=== PATIENT | female | born 1945 | race Caucasian/White ===

== ENCOUNTER 2020-04-29 09:07 | Inpatient (IN) | payer OTHER ==
[2020-04-29] MEDS ORDERED: NA CHLORIDE 0.9% 1,000 ML ONE ×2 (10:30→12:47)
[2020-04-29 11:45] LABS: Absolute Lymphocytes (CBC) 0.8 K/uL (0.7-4.9); Basophils % 2.5 % (0-1.3); Hematocrit 42.4 % (36.0-45.0); Lymphocytes % 8.7 % (15.3-44.8); MPV 8.1 fL (7.6-11.3); RBC Red Blood Cell Count 4.36 M/uL (3.86-4.86)
[2020-04-29 11:57] LABS: ALT/SGPT 18 U/L (12-78); AST/SGOT 14 U/L (15-37); Alkaline Phosphatase 104 U/L (45-117); BUN Blood Urea Nitrogen 78 mg/dL (7-18); Bicarbonate 17 mmol/L (21-32); Bilirubin Direct < 0.1 mg/dL (0-0.2); Bilirubin Total 0.2 mg/dL (0.2-1.0); Glucose Level 89 mg/dL (74-106); Lipase 222 U/L (73-393); Potassium 5.4 mmol/L (3.5-5.1); Protein, Total 7.9 g/dL (6.4-8.2); Sodium Level 134 mmol/L (136-145)
[2020-04-29 12:32] LABS: Blood Morphology Comment NOT SEEN (NOT SEEN); Platelet Estimate ADEQ; Platelets, Giant F; White Blood Cell Scan OK (OK)
--- NOTE | 2020-04-29 12:54 | RAD REPORT ---
EXAM DESCRIPTION: CT - Abdomen Pelvis Wo Contrast - 04/29/2020 12:38 pm CLINICAL HISTORY: diarrhea;Abd pain COMPARISON: <Comparisons> TECHNIQUE: Axial [address] imaging of the abdomen and pelvis was performed without IV contrast. No IV contrast was given because of allergy, abnormal renal function, patient refusal or physician re quest. No oral contrast administered. All CT scans are performed using dose optimization technique as appropriate and may include automated exposure control or mA/KV adjustment according to patient size. FINDINGS: No suspicious findings in the lung bases. Liver shows no suspicious findings. Cholecystectomy clips are present with no biliary tree dilatation . Elevation of the right hemidiaphragm. No splenomegaly present. In the medial inferior aspect of the spleen there is a 17 millimeter low-attenuation (10 Hounsfield units) mass most likely an incidental cyst. This is not regarded as significant. No pancreatitis or acute pancreas finding. No hydronephrosis or suspicious renal mass. Kidneys show lobulated capsule contours. No left adrenal mass. A 2.7 centimeter low-attenuation (5 Hounsfield units) right adrenal mass is present almost cert ainly an incidental adenoma. Isodense renal masses and pyelonephritis cannot be excluded in the absen ce of IV contrast. The urinary bladder is without significant finding. Uterus is absent or atrophic. No adnexal mass. [place] artifact from the right hip prosthesis limits pelvic floor detail. No dilated bowel loops or bowel wall thickening. Patient has diverticulosis without diverticulitis. N o acute GI process evident. No free air, free fluid or inflammatory stranding. No mass or bulky lymph adenopathy. Disc and bone degenerative changes are present. Lower lumbar surgical changes are present. No acute f inding evident. Patient has an infrarenal abdominal aortic aneurysm along the left anterior margin. This creates long and short axis dimensions of 3.6 x 2.9 cm. No displaced calcifications. IMPRESSION: Non-contrast enhanced CT abdomen and pelvis imaging show no acute or emergent finding. Nonacute findings detailed in the body of the report. Full assessment is limited is the absence of IV contrast.
[2020-04-29 13:25] LABS: Urine Blood TRACE (NEG); Urine Glucose NEGATIVE (NEG); Urine Protein TRACE (NEG); Urine Specific Gravity 1.015 (1.005-1.030)
[2020-04-29 13:29] LABS: Urine Bacteria NONE SEEN /HPF (<20); Urine RBC <5 /HPF (NONE SEEN)
--- NOTE | 2020-04-29 13:34 | ER ---
Nurse's Notes [facility] Name: Delfina Vinson Age: 75 yrs Sex: Female : 1945 Arrival Date: 04/29/2020 Time: 09:09 Bed 4 Private MD: Delon Mcallister V Diagnosis: Acute kidney failure;Hyperkalemia;Hypotension, unspecified Presentation: 04/29 09:45 Chief complaint: Spouse and/or significant other states: has been very weak over past iw few days, has no energy, has been having diarrhea for past few weeks was seen at ER in [place] three weeks ago, has been having some low BP readings at home. 09:53 Acuity: BILL 2 iw 10:00 Coronavirus screen: Client denies travel out of the [place] in the last 14 days. At this jl7 time, the client does not indicate any symptoms associated with coronavirus-19. Ebola Screen: No symptoms or risks identified at this time. Initial Sepsis Screen: Does the patient meet any 2 criteria? Systolic BP < 90 mmHg. Does the patient have a suspected source of infection? No. Patient's initial sepsis screen is negative. Risk Assessment: Do you want to hurt yourself or someone else? Patient reports no desire to harm self or others. Onset of symptoms is unknown. Care prior to arrival: None. Transition of care: patient was not received from another setting of care. 10:00 Method Of Arrival: Wheelchair jl7 Historical: - Allergies: 10:16 No Known Allergies; iw - Home Meds: 10:16 Synthroid 100 mcg Oral tab 1 tab once daily [Active]; olmesartan oral 20 MG oral once iw daily [Active]; gabapentin 300 mg oral cap 3 times per day [Active]; Xanax 0.5 mg Oral tab daily [Active]; 10:18 tramadol 50 mg Oral tab every 4-6 hours [Active]; iw - PMHx: 11:18 Hypothyroidism; Hypertension; jl7 - Immunization history:: Adult Immunizations unknown. - Family history:: not pertinent. - Social history:: Smoking status: Patient denies any tobacco usage or history of. - Hospitalizations: : No recent hospitalization is reported. Screenin:18 Abuse screen: Denies threats or abuse. Denies injuries from another. Nutritional jl7 screening: No deficits noted. Tuberculosis screening: No symptoms or risk factors identified. Fall Risk IV access (20 points). Gait- Weak (10 pts.). Total Rgeene Fall Scale indicates Low Risk Score (25-44 pts). Fall prevention measures have been instituted. Side Rails Up X 2 Placed close to Nursing Station Frequent Obs/Assesments occuring Family Present and informed to notify staff if they need to leave bedside As available Patient and Family Educated on Fall Prevention Program and strategies. Assessment: 10:15 General: Appears in no apparent distress. uncomfortable, ill, Behavior is calm, jl7 cooperative, appropriate for age. Pain: Complains of pain in back Pain began years ago. Is continuous. Neuro: Level of Consciousness is awake, alert, obeys commands, Oriented to person, place, time, situation. Cardiovascular: Patient's skin is warm and dry. Respiratory: Airway is patent Respiratory effort is even, unlabored, Respiratory pattern is regular, symmetrical. GI: Abdomen is round non-distended. Derm: Skin is dry, Skin is pale, Skin temperature is cool. 11:00 Reassessment: Patient appears in no apparent distress at this time. No changes from jl7 previously documented assessment. Patient and/or family updated on plan of care and expected duration. Pain level reassessed. Patient is alert, oriented x 3, equal unlabored respirations, skin warm/dry/pink. 12:00 Reassessment: Patient appears in no apparent distress at this time. No changes from jl7 previously documented assessment. Patient and/or family updated on plan of care and expected duration. Pain level reassessed. Patient is alert, oriented x 3, equal unlabored respirations, skin warm/dry/pink. 13:00 Reassessment: Patient appears in no apparent distress at this time. No changes from jl7 previously documented assessment. Patient and/or family updated on plan of care and expected duration. Pain level reassessed. Patient is alert, oriented x 3, equal unlabored respirations, skin warm/dry/pink. 14:00 Reassessment: Patient appears in no apparent distress at this time. No changes from jl7 previously documented assessment. Patient and/or family updated on plan of care and expected duration. Pain level reassessed. Patient is alert, oriented x 3, equal unlabored respirations, skin warm/dry/pink. 15:00 Reassessment: 22 g to right wrist infiltrated, IV removed. jl7 Vital Signs: 10:04 BP 87 / 47; Pulse 55; Resp 14; Temp 97.6; Pulse Ox 96% on R/A; iw 10:54 BP 79 / 59; Pulse 53; Resp 16; Pulse Ox 95% on R/A; tw2 11:16 BP 97 / 45; Pulse 54; Resp 17; Pulse Ox 95% ; jl7 11:39 BP 92 / 50; Pulse 53; Resp 17; Pulse Ox 95% on R/A; tw2 12:54 BP 102 / 46; Pulse 45; Resp 17; Pulse Ox 95% ; jl7 13:40 Resp 14 S; Pulse Ox 88% on R/A; jl7 13:46 BP 104 / 56; Pulse 53; Resp 15; Pulse Ox 100% on 1 lpm NC; jl7 14:40 BP 113 / 51; Pulse 51; Resp 17; Pulse Ox 100% ; jl7 15:00 BP 109 / 53; Pulse 54; Resp 17; Pulse Ox 100% ; jl7 10:54 provider notified tw2 ED Course: 09:09 Patient arrived in ED. as 09:10 Delon Mcallister MD is Private Physician. as 09:53 Triage completed. iw 09:53 Placed in gown. Adult w/ patient. supervisor pole yard on. Pulse ox on. NIBP on. Warm tw2 blanket given. 10:00 James Lares MD is Attending Physician. rn 10:09 Brock Jon RN is Primary Nurse. jl7 10:24 Inserted saline lock: 20 gauge in right wrist, using aseptic technique. Blood collected.jl7 10:26 Arm band placed on. tw2 10:30 First set of blood cultures drawn. Missed attempt(s): 22 gauge in left antecubital jl7 area. Bleeding controlled, band aid applied, catheter tip intact. 10:32 Missed attempt(s): 22 gauge in left wrist. Bleeding controlled, band aid applied, jl7 catheter tip intact. 11:19 Radiology exam delayed due to lab results not completed at this time. (BUN/Creatinine) bq IV insertion attempt and/or patient not having appropriate IV at this time. 11:28 Initial lab(s) drawn, by me, sent to lab. Second set of blood cultures drawn by me. dh3 Missed attempt(s): 20 gauge in left antecubital area. Bleeding controlled, band aid applied, catheter tip intact. 12:38 Abdomen In Process Unspecified. EDMS 12:54 Straight cath inserted, using sterile technique, 16 Fr. Specimen obtained. Returned jl7 clear yellow urine. Patient tolerated well. 12:55 Urine collected: straight cath specimen, clear. jl7 13:34 Delon Mcallister MD is Hospitalizing Provider. rn 15:30 Missed attempt(s): 22 gauge in right wrist. Bleeding controlled, band aid applied, jl7 catheter tip intact. 15:35 Missed attempt(s): 22 gauge in left forearm. Bleeding controlled, band aid applied, jl7 catheter tip intact. 15:56 Inserted saline lock: 22 gauge in left antecubital area, using aseptic technique. iw 15:58 No provider procedures requiring assistance completed. Patient admitted, IV remains in jl7 place. intact, No redness/swelling at site. Administered Medications: 10:30 Drug: NS 0.9% 1000 ml Route: IV; Rate: 1000 ml; Site: right wrist; jl7 11:30 Follow up: Response: No adverse reaction; IV Status: Completed infusion; IV Intake: jl7 1000ml 12:55 Drug: NS 0.9% 1000 ml Route: IV; Rate: 100 ml/hr; Site: right wrist; jl7 15:56 Follow up: IV Status: Infusion continued upon admission jl7 Intake: 11:30 IV: 1000ml; Total: 1000ml. jl7 Outcome: 13:34 Decision to Hospitalize by Provider. rn 16:00 Admitted to Tele accompanied by tech, family with patient, via stretcher, room 204, jl7 with chart, Report called to MAURI Cuenca 16:00 Condition: stable 16:00 Discharge instructions given to patient, family, Instructed on the need for admit, Demonstrated understanding of instructions. 16:08 Patient left the ED. jl7 Signatures: Dispatcher [employer] EDMS Lucía Lunsford Amelia as Williams, Irene, RN RN iw Nieto, Roman, MD MD rn Wise, Tara, RN RN 2 Brock Jon RN RN jl7 Sheree Amaya 3 Corrections: (The following items were deleted from the chart) 15:58 15:58 Response: No adverse reaction; IV Status: Completed infusion; IV Intake: 1000ml jl7 jl7
--- NOTE | 2020-04-29 13:35 | EDPHYS ---
Physician Documentation [facility] Name: Delfina Vinson Age: 75 yrs Sex: Female : 1945 Arrival Date: 04/29/2020 Time: 09:09 Bed 4 Private MD: Delon Mcallister V ED Physician Jaems Lares HPI: 04/29 11:07 This 75 yrs old Female presents to ER via Unassigned with complaints of rn diarrhea, Blood Pressure Problem, Weakness. 11:07 Reports generalized weakness, low blood pressure, has been happening for about 1 week, rn seen at outside ER this past week, reports had ct abdomen and bloodwork, sent home, continued to have non-bloody diarrhea. + nausea. NO chest pain/sob/productive cough.. Onset: The symptoms/episode began/occurred 1 week(s) ago. Severity of symptoms: At their worst the symptoms were moderate in the emergency department the symptoms are unchanged. The patient has not experienced similar symptoms in the past. The patient has been recently seen by a physician:. Historical: - Allergies: 10:16 No Known Allergies; iw - Home Meds: 10:16 Synthroid 100 mcg Oral tab 1 tab once daily [Active]; olmesartan oral 20 MG oral once iw daily [Active]; gabapentin 300 mg oral cap 3 times per day [Active]; Xanax 0.5 mg Oral tab daily [Active]; 10:18 tramadol 50 mg Oral tab every 4-6 hours [Active]; iw - PMHx: 11:18 Hypothyroidism; Hypertension; jl7 - Immunization history:: Adult Immunizations unknown. - Family history:: not pertinent. - Social history:: Smoking status: Patient denies any tobacco usage or history of. - Hospitalizations: : No recent hospitalization is reported. ROS: 11:07 Constitutional: Negative for fever, chills, and weight loss, Eyes: Negative for injury, rn pain, redness, and discharge, Neck: Negative for injury, pain, and swelling, Cardiovascular: Negative for chest pain, palpitations, and edema, Respiratory: Negative for shortness of breath, cough, wheezing, and pleuritic chest pain, Abdomen/GI: + nausea and diarrhea, non-bloody Back: Negative for injury and pain, MS/Extremity: Negative for injury and deformity, Skin: Negative for injury, rash, and discoloration, Neuro: Negative for headache, numbness, tingling, and seizure Exam: 11:07 Constitutional: This is a well developed, well nourished patient who is awake, alert, rn and in no acute distress. Head/Face: Normocephalic, atraumatic. Eyes: Pupils equal round and reactive to light, extra-ocular motions intact. Lids and lashes normal. Conjunctiva and sclera are non-icteric and not injected. Cornea within normal limits. Periorbital areas with no swelling, redness, or edema. ENT: dry MM Cardiovascular: Bradycardic, regular, no pulse deficits. Respiratory: No increased work of breathing, no retractions or nasal flaring. Abdomen/GI: soft, non-tender, non-distended Skin: Warm, dry MS/ Extremity: Pulses equal, no cyanosis. Neurovascular intact. Full, normal range of motion. Equal circumference. Neuro: Awake and alert, GCS 15, oriented to person, place, time, and situation. Cranial nerves II-XII grossly intact. Motor strength 4/5 in all extremities. Sensory grossly intact. Cerebellar exam normal. Normal gait. Vital Signs: 10:04 BP 87 / 47; Pulse 55; Resp 14; Temp 97.6; Pulse Ox 96% on R/A; iw 10:54 BP 79 / 59; Pulse 53; Resp 16; Pulse Ox 95% on R/A; tw2 11:16 BP 97 / 45; Pulse 54; Resp 17; Pulse Ox 95% ; jl7 11:39 BP 92 / 50; Pulse 53; Resp 17; Pulse Ox 95% on R/A; tw2 12:54 BP 102 / 46; Pulse 45; Resp 17; Pulse Ox 95% ; jl7 13:40 Resp 14 S; Pulse Ox 88% on R/A; jl7 13:46 BP 104 / 56; Pulse 53; Resp 15; Pulse Ox 100% on 1 lpm NC; jl7 14:40 BP 113 / 51; Pulse 51; Resp 17; Pulse Ox 100% ; jl7 15:00 BP 109 / 53; Pulse 54; Resp 17; Pulse Ox 100% ; jl7 10:54 provider notified tw2 MDM: 10:00 Patient medically screened. rn 13:31 Differential Diagnosis sepsis, dehydration, acute kidney failure, colitis, enteritis. rn Data reviewed: vital signs, nurses notes, lab test result(s), radiologic studies, CT scan, and as a result, I will admit patient. Counseling: I had a detailed discussion with the patient and/or guardian regarding: the historical points, exam findings, and any diagnostic results supporting the discharge/admit diagnosis, lab results, radiology results, the need for further work-up and treatment in the hospital. Response to treatment: the patient's symptoms have mildly improved after treatment, and as a result, I will admit patient. Special discussion:. ED course: Pt with acute kidney failure, hypotension that is responding to fluids, as a result of enteritis which has now improved on CT compared to outside hospital findings. Will admit to Dr. Mcallister. . 04/29 10:06 Order name: Basic Metabolic Panel; Complete Time: 12:13 04/29 10:06 Order name: CBC with Diff; Complete Time: 13:08 04/29 10:06 Order name: Hepatic Function; Complete Time: 12:13 04/29 10:06 Order name: Lipase; Complete Time: 12:13 04/29 10:06 Order name: Procalcitonin; Complete Time: 13:08 04/29 10:06 Order name: Lactate; Complete Time: 12:01 04/29 10:06 Order name: Blood Culture Adult (2) 04/29 10:06 Order name: Urine Culture 04/29 10:06 Order name: Urine Microscopic Only; Complete Time: 13:31 04/29 12:15 Order name: CREATININE WHOLE BLOOD; Complete Time: 13:08 EDAL 04/29 12:32 Order name: CBC Smear Scan; Complete Time: 13:08 EDMS 04/29 12:55 Order name: Urine Dipstick--Ancillary (enter results); Complete Time: 13:31 eb 04/29 13:38 Order name: Stool Culture 04/29 10:06 Order name: IV Saline Lock; Complete Time: 10:54 rn 04/29 10:06 Order name: Labs collected and sent; Complete Time: 11:36 04/29 10:06 Order name: Urine Dipstick-Ancillary (obtain specimen); Complete Time: 15:56 04/29 12:06 Order name: Abdomen ; Complete Time: 13:08 EDMS Administered Medications: 10:30 Drug: NS 0.9% 1000 ml Route: IV; Rate: 1000 ml; Site: right wrist; jl7 11:30 Follow up: Response: No adverse reaction; IV Status: Completed infusion; IV Intake: jl7 1000ml 12:55 Drug: NS 0.9% 1000 ml Route: IV; Rate: 100 ml/hr; Site: right wrist; jl7 15:56 Follow up: IV Status: Infusion continued upon admission jl7 Disposition: 04/29/20 13:34 Hospitalization ordered by Delon Mcallister for Inpatient Admission. Preliminary diagnosis are Acute kidney failure, Hyperkalemia, Hypotension, unspecified. - Bed requested for Telemetry/MedSurg (Inpatient). - Status is Inpatient Admission. jl7 - Condition is Stable. - Problem is new. - Symptoms have improved. Critical care time excluding procedures: 13:34 Critical care time: Bedside Care: 25 minutes, Consultation: 5 minutes, Family rn Intervention: 5 minutes. Total time: 35 minutes Signatures: Dispatcher [employer] EDAL Magdalene Bansal RN RN James Lares MD MD rn Leal, Jahala, RN RN 7 Marita Ca Corrections: (The following items were deleted from the chart) 12:06 10:07 Abdomen Pelvis W Con+CT.RAD.BRZ ordered. [facility] 14:59 13:34 Hospitalization Ordered by Delon Mcallister MD for Inpatient Admission. Preliminary eb diagnosis is Acute kidney failure; Hyperkalemia; Hypotension, unspecified. Bed requested for Telemetry/MedSurg (Inpatient). Status is Inpatient Admission. Condition is Stable. Problem is new. Symptoms have improved. rn 16:08 14:59 04/29/2020 13:34 Hospitalization Ordered by Delon Mcallister MD for Inpatient jl7 Admission. Preliminary diagnosis is Acute kidney failure; Hyperkalemia; Hypotension, unspecified. Bed requested for Telemetry/MedSurg (Inpatient). Status is Inpatient Admission. Condition is Stable. Problem is new. Symptoms have improved. eb
[2020-04-29] MEDS ORDERED: ONDANSETRON 4 MG/2 ML VIAL IV PRN (17:07)
[2020-04-29] MEDS ORDERED: TRAMADOL HCL 50 MG TAB PO PRN (18:05)
--- NOTE | 2020-04-29 18:17 | P.HP ---
Certification for Inpatient Patient admitted to: Inpatient With expected LOS: >2 Midnights Practitioner: I am a practitioner with admitting privileges, knowledge of patient current condition, hospital course, and medical plan of care. Services: Services provided to patient in accordance with Admission requirements found in Title 42 Section 412.3 of the Code of Federal Regulations Patient History Date of Service: 04/29/20 Reason for admission: WEAK History of Present Illness: MS DANGELO IS A NEW PATIENT FOR ME. SHE CAME TO OFFICE A WEEK AGO. SHE HAS HAD CHRONIC DIARRHEA FOR A MONTH, ABOUT 3 EPISODES EVERY MORNING OF WATERY DIARRHEA. SHE USUALLY GOES TO DR. FREY IN [place] FOR HER GI CARE BUT NOW GETTING OLDER SHE CAN'T DRIVE THERE. SHE LIVES IN [place] AND I ASKED HER TO GET APT WITH DR. NAVARRO FOR EVALUATION OF CHRONIC DIARRHEA. SHE COULD NOT GET APT UNTIL JULY. HER SON TOOK HER TO [facility] AND WAS SENT HOME AT THAT TIME THERE WAS NO DEHYDRATION. MEANWHILE SHE GOT WEAKER FOR LAST 3 DAYS AND CAME TO ER. SHE HAD LOW BP AND HIGH BUN, CREATININE. SHE WAS GIVEN BOLUS OF IV FLUIDS AND BP CAME UP TO NORMAL RANGE. SHE STILL IS WEAK. Allergies No Known Allergies Allergy (Verified 04/29/20 16:50) Home medications list reviewed: Yes Home Medications: Alprazolam [Xanax] 0.5 mg PO BEDTIME 04/29/20 Gabapentin 600 mg PO BID 04/29/20 Levothyroxine Sodium [Synthroid] 100 mcg PO DAILY 04/29/20 Olmsartan [place]il 20 mg PO DAILY 04/29/20 Tramadol HCl [Ultram] 50 mg PO BID PRN 04/29/20 - Past Medical/Surgical History Has patient received pneumonia vaccine in the past: No Diabetic: No -: HTN -: colon cancer. no chemo or rad 2003 -: hypothyroid -: shingles -: back surg x2 -: TONSILLECTOMY -: hysterectomy -: hip rt -: rt knee -: CHOLECYSTECTOMY -: APPENDECTOMY -: colon resection - Family History Father -: Heart disease, Hypertension Mother -: Diabetes - Social History Smoking Status: Never smoker Alcohol use: No CD- Drugs: No Caffeine use: Yes Place of Residence: Home Review of Systems 10-point ROS is otherwise unremarkable General: Weakness, Malaise, As per HPI Gastrointestinal: As per HPI Physical Examination - Physical Exam General: Oriented x3 (WEAK AND DEHYDRATED.), Mild distress, Moderate distress, Obese HEENT: Atraumatic, PERRLA, Mucous membr. moist/pink, EOMI, Sclerae nonicteric Neck: Supple, 2+ carotid pulse no bruit, No LAD, Without JVD or thyroid abnormality Respiratory: Clear to auscultation bilaterally, Normal air movement Cardiovascular: Regular rate/rhythm, Normal S1 S2 Gastrointestinal: Normal bowel sounds, No tenderness Musculoskeletal: No tenderness Integumentary: No rashes Neurological: Normal gait, Normal speech, Normal strength at 5/5 x4 extr, Normal tone, Normal affect Lymphatics: No axilla or inguinal lymphadenopathy - Studies Laboratory Data (last 24 hrs) 04/29/20 11:28: WBC 8.8, Hgb 13.9, Hct 42.4, Plt Count 351 04/29/20 11:28: Sodium 134 L, Potassium 5.4 H, BUN 78 H, Creatinine 3.62 H, Glucose 89, Total Bilirubin 0.2, AST 14 L, ALT 18, Alkaline Phosphatase 104, Lipase 222 Assessment and Plan - Problems (Diagnosis) (1) Prerenal acute renal failure Current Visit: Yes Status: Acute Plan: IV FLUIDS. SHE SHOULD IMPROVE URINE IS CLEAR, NO SIGNS OF BLEEDING OR INFLAMMATION. DOES NOT SEEM TO HAVE ATN OR AGN. (2) Chronic diarrhea Current Visit: Yes Status: Chronic Plan: FOR A MONTH. WE NEED COLONOSCOPY. GI DOCTORS ARE NOT AVAILABLE DAILY AT THIS HOSPITAL. I WILL STABILIZE AND DO CRC ON OP BASIS. - Advance Directives Does patient have a Living Will: Yes Does patient have a Durable POA for Healthcare: Yes
[2020-04-29 19:46] VITALS: BMI 38.9
[2020-04-29] MEDS ORDERED: ALPRAZOLAM 0.5 MG TABLET PO SCH (21:00)
[2020-04-29] MEDS ORDERED: GABAPENTIN 100 MG CAP PO SCH (21:00)
[2020-04-29] MEDS ORDERED: GABAPENTIN 300 MG CAP PO SCH (21:00)
[2020-04-29] MEDS: GABAPENTIN 300 MG CAP PO SCH (21:48)
[2020-04-30] MEDS: NA CHLORIDE 0.9% 1,000 ML IV SCH ×2 (00:36→03:07)
[2020-04-30] MEDS ORDERED: HYDROCORTISONE 2.5% RECT CR PR PRN (03:20)
[2020-04-30] MEDS ORDERED: HYDROCORTISONE ACETATE 25MG SUPP PR ONE (03:28)
[2020-04-30 05:53] LABS: Potassium 5.2 mmol/L (3.5-5.1)
[2020-04-30 06:04] LABS: Absolute Lymphocytes (CBC) 1.6 K/uL (0.7-4.9); Basophils % 0.6 % (0-1.3); Hematocrit 38.4 % (36.0-45.0); Lymphocytes % 17.5 % (15.3-44.8); MPV 8.6 fL (7.6-11.3); RBC Red Blood Cell Count 3.97 M/uL (3.86-4.86)
[2020-04-30] MEDS ORDERED: LEVOTHYROXINE SOD 0.1 MG TAB PO SCH (06:30)
[2020-04-30] MEDS: GABAPENTIN 300 MG CAP PO SCH (08:05)
[2020-04-30 08:15] VITALS: O2SAT 94
[2020-04-30 08:25] LABS: Blood Morphology Comment NOT SEEN (NOT SEEN); Platelet Estimate ADEQ; White Blood Cell Scan OK (OK)
[2020-04-30] MEDS ORDERED: ENOXAPARIN 30 MG/0.3 ML SQ SCH (09:00)
[2020-04-30 13:15] VITALS: BP 132/60; TEMP 98.3
[2020-05-04 21:55] LABS: Immunoglobulin A 271 mg/dL (70-320); Tissue Transglutaminase IgA Ab 1 U/mL (<4)
== END 2020-04-30 14:30 | disposition home or self-care (01) | DRG 684 ==
LOC: ER 09:07 → ERHOLD 13:58 → 2ND 15:57
PROVIDERS: ADMIT Internal Medicine; ATTEND Internal Medicine
DX: N17.9 Acute kidney failure, unspecified (principal); K52.9 Noninfective gastroenteritis and colitis, unspecified; E03.9 Hypothyroidism, unspecified; I10 Essential (primary) hypertension; E66.9 Obesity, unspecified; Z68.39 Body mass index [BMI] 39.0-39.9, adult; Z79.890 Hormone replacement therapy; Z79.01 Long term (current) use of anticoagulants; Z79.899 Other long term (current) drug therapy; Z85.038 Personal history of other malignant neoplasm of large intestine; Z90.49 Acquired absence of other specified parts of digestive tract; Z90.710 Acquired absence of both cervix and uterus; Z20.828 Contact with and (suspected) exposure to other viral communicable diseases
CPT/HCPCS: 36415; 51702; 74176; 80048; 80076; 81003; 81015; 82565; 82784; 83516; 83605; 83690; 83735; 84145; 85025; 87040; 87045; 87046; 87086; 87088; 96360; 96361; 99285; J1650; J7030; U0003

== ENCOUNTER 2020-05-01 10:08 | Inpatient (IN) | payer OTHER ==
--- OUTSIDE RECORDS SUMMARY | 2020-05-01 10:20 | XMS REPORT | Continuity of Care Document ---
:1945 Author Organization [facility] t Address [address] [place] [address] Care Team Providers Name Role Phone Layla Nickerson MD, A. Primary Care Physician Lilly Price DO Attending Clinician Payers Payer Name Policy Type Policy Effective Date Expiration Date Sour ce Number MEDICAREMEDICARE PART [id number] 2008 Luca Can AND 00:00:00 Rastafarian [id number] [place] [facility] [place] This patient has no known problems. Allergies, Adverse Reactions, Alerts Allergy Allergy Status Severity Reaction(s) Onset Inactive Treating Comm ents Source Name Type Date Date Clinician No Known DA Active U 2018-06 [facility] 06-27 [place] Allergie 00:00: Orthope s 00 dic Hosp[facility] Codeine Propensi Active [place] ty to 08-25 Method[facility] adverse 00:00: st reaction 00 s to drug Hydrocod [facility] adverse 00:00: st reaction 00 s to drug Sulfa DA Active [facility] (Sulfona 08-24 [place] mide 00:00: Orthope Antibiot 00 dic ics) Hospita l celecoxi DA Active [facility] b 08-24 00:00: Orthope 00 dic Hospita l apple FA Active [facility] 08-24 00:00: Orthope 00 dic Hospita l ALL RAW DA Active [facility] FRUIT 08-24 [place] 00:00: Orthope 00 dic Hospita l Family History Family Member Diagnosis Comments Start Date Stop Date Source Natural brother Diabetes [facility] ethodist Natural mother Diabetes [facility] thodi Social History Social Habit Start Date Stop Date Quantity Comments Source Sex Assigned At [facility] ethodist Exposure to Not sure [place] Metho dist SARS-CoV-2 (event) Tobacco use and 2020-04-23 2020-04-23 Never used [facility] ethodist exposure 00:00:00 00:00:00 Alcohol intake 2020-04-23 2020-04-23 Current [facility] thodist 00:00:00 00:00:00 non-drinker of alcohol (finding) Smoking Status Start Date Stop Date Source Never smoker [place] Methodis t Medications Ordered Filled Start Stop Current Ordering Indication Dosage Frequency Signature Comments Components Source Medication Medication Date Date Medication? Clinician (SIG) Name Name ondansetron 2019-06- Yes 4mg Q8H Take 1 Smita ston (Zofran) 4 06-23 tablet (4 Met hodi MG tablet 00:00: 23:59 mg total) st 00 :00 by mouth every 8 (eight) hours as needed for nausea or vomiting for up to 30 days. losartan Yes 50mg QD Take 50 mg Smita ston (COZAAR) 50 3-27 by mouth Meth odessa MG tablet 10:15: daily. st 49 cholecalcif Yes 2000U QD Take 2,000 Desir oziel, 3-27 Units by Methodi vitamin D3, 10:15: mouth st (VITAMIN 49 daily. D3) 2,000 unit capsule capsule levothyroxi Yes 100ug QD Take 100 [place] ne 3-27 mcg by Methodi (SYNTHROID, 10:14: mouth st LEVOXYL) 47 daily. 100 mcg tablet ALPRAZolam Yes .5mg QD Take 0.5 Smita ston (XANAX) 0.5 3-27 mg by Methodi MG tablet 10:14: mouth st 47 nightly as needed for anxiety. CETIRIZINE Yes QD Take by [place] H[facility] (ZYRTEC 3-27 mouth Methodi ORAL) 10:14: daily. st 47 Vital Signs Vital Name Observation Time Observation Value Comments Source Systolic blood 2020-04-23 16:06:00 120 mm[Hg] Ja Sheppard pressure Diastolic blood 2020-04-23 16:06:00 59 mm[Hg] Zuleima Sheppard pressure Heart rate 2020-04-23 16:06:00 65 /min Thang Sheppard Respiratory rate 2020-04-23 16:06:00 18 /min Nadiya Sheppard Oxygen saturation in 2020-04-23 16:06:00 97 /min Thang Sheppard Arterial blood by Pulse oximetry Body temperature 2020-04-23 14:18:00 36.28 Araseli Nadiya Sheppard Body height 2020-04-23 14:02:00 161.3 cm Thang Sheppard Body weight 2020-04-23 14:02:00 99.791 kg Thang Sheppard BMI 2020-04-23 14:02:00 38.36 kg/m2 Thang Sheppard Procedures Procedure Date / Time Performed Performing Clinician [facility] e CT ABDOMEN PELVIS WO 2020-04-23 15:42:02 Azar Price CONTRAST URINALYSIS 2020-04-23 15:02:00 Azar Priec HC COMPLETE BLD COUNT 2020-04-23 14:52:00 Azar Price W/AUTO DIFF LACTIC ACID, I-STAT 2020-04-23 14:52:00 Azar Price COMPREHENSIVE METABOLIC 2020-04-23 14:52:00 Azar Price PANEL AMYLASE LEVEL 2020-04-23 14:52:00 Azar Price Meth odjassi ESTIMATED GFR 2020-04-23 14:52:00 Azar Price Plan of Care Planned Activity Planned Date Details Comments Source Future Scheduled 2019-12-31 INFLUENZA VACCINE Ja Sheppard Test 00:00:00 [code = INFLUENZA VACCINE] Future Scheduled 2008-02-15 65+ PNEUMOCOCCAL Thang Sheppard Test 00:00:00 VACCINE (1 of 1 - PPSV23) [code = 65+ PNEUMOCOCCAL VACCINE (1 of 1 - PPSV23)] Future Scheduled 1993 SHINGLES VACCINES (#1) Caro dunham Rastafarian Test 00:00:00 [code = SHINGLES VACCINES (#1)] Encounters Start End Encounter Admission Attending Care Care Encounter Source Date/Time Date/Time Type Type Clinicians Facility Department ID 2020-04-23 2020-04-23 Emergency [facility] [id number] 24 [place] 00:00:00 00:00:00 AZAR Zapata Method i st Results Test Description Test Time Test Comments Results Result Sour e Comments CT Abdomen 2020-04-02 [facility] Pelvis Wo [address] Contrast 15:47:59 - 04/23/2020 3:51 PM CSTEXAMINATION: CT ABDOMEN PELVIS WO CONTRASTCLINICAL HISTORY: Abd pain unspecifiedTECHNIQUE: Multiple axial images of the abdomen and pelvis were obtained without intravenous administration of iodinated contrast. Sagittal and coronal computerized reformatted images were also obtained. The lack of intravenous contrast reduces the sensitivity of detecting solid organ disease. Radiation dose reduction technique was utilized.COMPARISON: None.IMPRESSION:Abdom en:1. Scans through the lower chest demonstrate coronary artery calcifications.2.Live r, pancreas, left adrenal, and kidneys do not demonstrate masses without contrast. There is a 1.7 cm hypodensity in the upper pole the left kidney, probably related to a cyst.3.There is a 1.7 cm hypodensity in the upper pole the spleen, also probably related to a cyst. There are multiple calcified splenic granulomata.4.There is a 3.3 cm hypodense mass in the right adrenal gland, most likely related to an adenoma. This can be confirmed by MRI.5.Status post cholecystectomy.6.Aor ta is atherosclerotic. Maximum transverse dimension is approximately 3.4 cm.7.There is no retroperitoneal adenopathy or ascites.8.There is no intestinal obstruction.Pelvis:1. Status post hysterectomy.2.Sigmoi d diverticulosis without evidence of diverticulitis.3.No pelvic mass, adenopathy, or fluid collection.4.There is generalized osteopenia. There are degenerative changes in the lower thoracic and lumbar spine. Status post lumbar laminectomy and fusion.5.Status post right hip replacement.[facility]-[id number] Comprehensive metabolic panel 2020-04-23 15:16:45 Test Item Value Reference Range Interpretation Comme nts Sodium (test code = 2951-2) 134 128- 145 mEq/L Potassium (test code = 2823-3) 4.9 3.6- 5.1 mEq/L CO2 (test code = 2027-9) 21 18- 33 mEq/L Chloride (test code = 2075-0) 106 98- 108 mEq/L Glucose (test code = 2345-7) 83 mg/dL 73-118 Calcium (test code = 53806-1) 9.1 mg/dL 8-10.3 BUN (test code = 3094-0) 17 mg/dL 7-22 Creatinine (test code = 2160-0) 0.8 mg/dL 0.5-0.9 Alkaline phosphatase (test code = 6768-6) 74 U/L 42-141 ALT (test code = 1742-6) 22 U/L 10-47 AST (test code = 1920-8) 28 U/L 11-38 Total bilirubin (test code = 1974-2) 0.6 mg/dL 0.2-1.6 Albumin (test code = 1751-7) 3.7 g/dL 3.3-5.5 Protein (test code = 2885-2) 7.4 g/dL 6.4-8.1 Anion gap (test code = 65243-5) 7@ANIO 7- 15 mEq/L A/G ratio (test code = 1759-0) 1.0 0.7-3.8 Thang MethodistAmylase [id number] 15:16:45 Test Item Value Reference Range Interpretation Comments Amylase (test code = 1798-8) 29 U/L 14-97 Thang MethodistCBC with platelet and [id number] 15:16:45 Test Item Value Reference Range Interpretation Comments WBC (test code = 53753-4) 8.31 4.50- 11.00 k/uL RBC (test code = 96513-4) 4.50 m/uL 4.2-5.5 HGB (test code = 718-7) 14.5 g/dL 12-16 HCT (test code = 4544-3) 43.3 % 37-47 MCV (test code = 787-2) 96.2 fL 82-100 MCH (test code = 785-6) 32.2 pg 27-34 MCHC (test code = 786-4) 33.5 g/dL 31-37 RDW - SD (test code = 07184-2) 51.4 fL 37-55 MPV (test code = 16743-8) 9.5 fL 8.8-13.2 Platelet count (test code = 303 150- 400 k/uL 37930-4) Neutrophils (test code = 37092-2) 69.2 % 39-69 H Lymphocytes (test code = 75853-3) 19.9 % 25-45 L Monocytes (test code = 77878-0) 10.2 % 0-10 H Eosinophils (test code = 75023-3) 0.6 % 0-5 Basophils (test code = 27010-2) 0.1 % 0-1 Lab Interpretation (test code = Abnormal 17973-7) Desir MethodistEstimated [id number] 15:16:45 Test Item Value Reference Range Interpretation Comments Estimated GFR (test 71 mL/min/1.73 m2 Caterg ory Units code = 5488) InterpretationG 1 >=90 Normal or highG2 60-89 Mildly uwjiujrpwE0z 45-59 Mildly to mode rately acwywxqtrM4m 30-44 Moderately to severely decreasedG4 15-29 Severely decre asedG5 <15 Kidn ey failureThe eGFR was calculated velma morales the Chronic Kidney Disease Epidemiology Co llaboration (CKD-EPI) equat ion. Interpretation is based on recommendations of the National Kidney Foundation-Kidn ey Disease Outcomes Qualit y Initiative (NKF-KDOQI) pub lished in 2014. Desir GtekipwghThsydhbnux0127-64-82 15:09:35 Test Item Value Reference Range Interpretation Comments Glucose, UA (test code Negative Negative = 50296-8) Bilirubin, UA (test Negative Negative code = 5770-3) Ketones, UA (test code Negative Negative = 2514-8) Specific gravity, UA 1.020 1.001-1.035 (test code = 5811-5) Blood, UA (test code = Moderate Negative A Opera tor Name: 5794-3) traineeDevice I D: 654718 pH, UA (test code = 5.0 5.0-8.5 5803-2) Protein, UA (test code Negative Negative = 88168-6) Urobilinogen, UA (test <2.0 <2.0 code = 46831-0) Nitrite, UA (test code Negative Negative = 5802-4) Leukocyte esterase, UA Negative Negative (test code = 5799-2) Color, UA (test code = Yellow 5778-6) Appearance, UA (test Hazy code = 5767-9) Lab Interpretation Abnormal (test code = 59165-2) Desir MethodistLactic acid, [id number] 15:03:08 Test Item Value Reference Range Interpretation Comments Lactic acid, I-Stat (test code = 0.8 mmol/L 0.5-2.2 05454-3) [place] Rastafarian- XR FLUORO FOR SPINE [id number] 16:17:00 Patient Name: JULI GORDON Unit No: [id number] EXAMS: CPT CODE: [id number] XR FLUORO FOR SPINE INJ 19091 CERVICAL TRANSFORAMINAL INJECTION REFERRING PHYSICIAN:PREOPERATIVE DIAGNOSIS: Cervical radiculitis POSTOPERATIVE DIAGNOSIS: Cervical radiculopathy PROCEDURES PERFORMED: Fluoroscopically guided needle localization of the bilateral C6, bilateral C7 spinal nerves with transforaminal epidural steroid injection/injections. 2. Transforaminal epidurogram/epidurograms at bilateral C6, bilateral C7 FINDINGS: Poor filling bilateral C6, bilateral C7. Concordant provocation left C6 neck and shoulder. Pain relief-100%. ANTIBIOTICS:Cefazolin ESTIMATED BLOOD LOSS: Minimal ANESTHESIA: (TIVA ) Total intravenous anesthetic (patient intolerant to sedatives and hypnotics) COMPLICATIONS: None DETAILS OF PROCEDURE: After obtaining stable vital signs, informed consent and IV access, with no known contraindications to proceeding, the patient was taken to the fluoroscopy suite and placed in a supine position with all extremities padded and appropriate monitors placed. A sterile prep and drape was performed over the cervical spine. Using fluoroscopic visualization at each level the insertion site was marked for a paravertebral approach to the foramen. Using standard technique, a 27gauge needle was advanced to the base of the pedicle. In AP view, final positioning was obtained outside the 6 on a clock position on the pedicle. Then, 0.5 ml of Isovue-300 contrast was injected to produce the epidurograms. No paresthesias were elicited with needle insertion or injection and there were no signs of intravascular or intrathecal uptake. Then, 0.5 ml of 4% lidocaine was injected as a test dose with no signs of intravascular or intrathecal uptake. Next, 10 mg of Decadron was injected incrementally with frequent negative aspirations.Each subsequent cervical nerve root sleeve was done with the same technique and medications were used.There were no signs of intravascular or intrathecal uptake. The patient's vital signs remained stable. The patient was taken to the PACU in good condition. [facility] NAME: JULI GORDON [address] [facility] PHYS: Deejay Chaparro MD [place] [address] : 1945 AGE: 74 SEX: F LOC: JESUS PHONE #: [phone] EXAM DATE: 04/27/2019 STATUS: [place] [facility] FA[place] #: [phone] RAD #: D/C DT PAGE 1 Signed Report (CONTINUED) Patient Name: JULI GORDON Unit No: [id number] EXAMS: CPT CODE: [id number] XR FLUORO FOR SPINE INJ 83318 <Continued> at 1617 Reported and signedby: Deejay Hutton M.D. CC: Technologist: Francesca Floyd(R) Transcribed D/ (0497) Vini [facility] NAME: JULI GORDON [address] [facility] PHYS: Deejay Chaparro MD [place] [address] : 1945 AGE: 74 SEX: F LOC: JESUS PHONE #: [phone] EXAM DATE: 06/27/2018 STATUS: [place] [facility] [place] #: [phone] RAD #: D/C DT PAGE 2 Signed Report Patient Name: JULI GORDON Unit No: [id number] EXAMS: CPT CODE: [id number] XR FLUORO FOR SPINE INJ 78516 <Continued> Orig Print D/T: S: 04/27/2019 (5924) [facility] NAME: JULI GORDON [address] [facility] PHYS: Deejay Chaparro MD [place], [place] [address] : 1945 AGE: 74 SEX: F LOC: Y.CHRIS PHONE #: [phone] EXAM DATE: 04/27/2019 STATUS: REG SDC FAX #:[phone] RAD #: D/C DT PAGE 3 Signed Report- XR L-SPINE W/BEND [id number] 13:07:00 Patient Name: JULI GORDON Unit No: [id number] EXAMS: CPT CODE: [id number] XR L-SPINE W/BEND VIEW 34268 COMPARISON: Concurrent MRI. IMAGES PROVIDED: 8 FINDINGS: 5 lumbar type vertebrae. Postoperative changes of L4-L5 posterior instrumented fusion demonstrated without evidence of gross complication. No acute fracture. No pathologic motion is c omplex/extension. No acute fracture. Disc degeneration is greatest at L3- L4 and L5-S1. Calcified plaque is seen within the aorta and its branches. Right hip arthroplasty is partially visualized. Cholecystectomy clips. Recommend IMPRESSION: Postoperative lumbarspine with multilevel spondylosis. No evidence of dynamic instability. at 1307 Reported and signed by: Ignacio Arshad M.D. CC: Reid Lua M.D. Technologist: RT. Kvng(R) Transcribed D/ (1307) t.CHARLESR.[facility] NAME: JULI GORDON [address] [facility] PHYS: Reid Malloy MD : 1945 AGE: 74 SEX: F [place], [place] [address] LOC: Y.MRI PHONE #: [phone] EXAM DATE: 04/05/2019 STATUS: DEP CLI FAX #: [phone] RAD #: D/C DT PAGE 1 Signed Report Patient Name: JULI GORDON Unit No: [id number] EXAMS: CPT CODE: [id number] XR L-SPINE W/BEND VIEW 54977 <Continued> Orig Print D/T: S: 04/06/2019 (1310) [place] [facility] NAME: JULI GORDON [address] [facility] [address] PHYS: Reid Malloy MD : 1945 AGE: 74 SEX: F [place], [place] [address] LOC: Y.MRI PHONE #: [phone] EXAM DATE:04/05/2019 STATUS: DEP CLI FAX #: [phone] RAD #: D/C DT PAGE 2 Signed Report- MRI L-SPINE W/O [id number] 14:43:00 Patient Name: JULI GORDON Unit No: [id number] EXAMS: CPT CODE: [id number] MRI L-SPINE W/O CONT 41795 TECHNIQUE: Multiplanar, multisequence MRI examination performed of the lumbar spine without intravenous contrast material. COMPARISON: MR dated 10/18/2013 FINDINGS: Interval postoperative changes of L4-L5 posterior instrumented fusion demonstrated. Interbody graft is present without evidence of complication. Alignment: Grade 1 spondylolisthesis of L4-L5. Bone Lesion: A hemangioma seen within the L1 vertebral body. Fracture: None present. Paraspinal Soft Tissues:A left renal hyperintense lesion is again noted, likely a cyst.. Conus Medullaris: Termination at L1 level. Morphology is normal. L1/2: Broad disc bulge with superimposed right foraminal disc protrusion measuring 3 mm, increased compared to prior exam. Mild left, moderate right foraminal stenosis. No significant central canal stenosis. L2/3: Broad disc bulge. Mild facet hypertrophy bilaterally. There is mild/moderate left, mild right foraminal narrowing. No significant central canal stenosis. L3/4: Broad disc bulge is also right foraminal disc protrusion measuring 3 mm, which approaches the rightL3 nerve. Bilateral facet hypertrophy. Mild central canal stenosis is present as well as mild left, moderate right foraminal narrowing. L4/5: Grade 1 spondylolisthesis. Discectomy and interbody graft. Bilateral facet hypertrophy and ligamentum flavum thickening are present. There is moderate central canal stenosis as well as severe lateral recess stenosis bilaterally. L5/S1: Diffuse disc bulge is noted as well as bilateral facet hypertrophy. Mild left, moderate right foraminal stenosis is present as well as mild central canal stenosis. IMPRESSION: Interval postoperative changes of L4-L5 posterior instrumented fusion with progression in spondylitic changes as described. at 1443 Reported and signed by: Ignacio Arshad M.D. [facility] NAME: JULI GORDON [address] [facility] PHYS: Reid Malloy MD : 1945 AGE: 74 SEX: F [place] [address] LOC: Y.MRI PHONE #: [phone] EXAM DATE: 04/05/2019 STATUS: REG CLI FAX #: [phone] RAD #: D/C DT PAGE 1 Signed Report (CONTINUED) Patient Name: JULI GORDON Unit No: [id number] EXAMS: CPT CODE: [id number] MRI L-SPINE W/O CONT 16900 <Continued> CC:Reid Lua M.D. Technologist: Mariel Pardo(R) Transcribed D/ (6227) Gideon [place] [facility] NAME: JULI GORDON [address] [facility] PHYS: Reid Malloy MD : 1945 AGE: 74 SEX: F [place] [address] LOC: Y.MRI PHONE #: [phone] EXAM DATE: 04/05/2019 STATUS: REG CLI FAX #: [phone] RAD #: D/C DT PAGE 2 Signed Report Patient Name: JULI GORDON Unit No: [id number] EXAMS: CPT CODE: [id number] MRI L-SPINE W/O CONT 34850 <Continued> Orig Print D/T: S: 04/05/2019 (0430) [facility] NAME: JULI GORDON [address] [facility] PHYS: Reid Malloy MD : 1945 AGE: 74 SEX: F [place], [place] [address]HGBR NO: [id number] LOC: Y.MRI PHONE #: [phone] EXAM DATE: 04/05/2019 STATUS: REG CLI FAX #: [phone] RAD #: D/C DT PAGE 3 Signed Report- MRI C-SPINE W/O [id number] 13:08:00 Patient Name: JULI GORDON Unit No: [id number] EXAMS: CPT CODE: [id number] MRI C-SPINE W/O CONT 88594 TECHNIQUE: Multiplanar, multisequence MRI examination performed of the cervical spine without intravenous contrast material. COMPARISON: None available. FINDINGS: Exam limited by patient motion. Alignment: Within normal limits Bone Lesion / Fracture: None present. Cervical Spinal Cord: Grossly normal. Prevertebral / Paraspinal Soft Tissues: Unremarkable. C2/3: No significant disc bulge or herniation. No foraminal or central canal stenosis. C3/4: No significant foraminal or central canal stenosis. C4/5: Minimal disc bulge. Bilateral facet and uncovertebral hypertrophy. There is mild left, moderate right foraminal stenosis as well as mild to moderate central canal stenosis. C5/6: Disc degeneration with endplate marrow changes and diffuse disc bulge osteophyte complex. Marked bilateral uncovertebral hypertrophy and mild bilateral facet hypertrophy. There is severe central canal stenosis as w ell as moderate to severe bilateral foraminal narrowing. C6/7: Large disc bulge osteophyte complex with superimposed right paracentral disc protrusion suspected measuring 3 mm, contributing to moderate central canal stenosis. Marked bilateral uncovertebral hypertrophy.Mild bilateral facet degeneration. There is severe left, moderate right foraminal stenosis. C7/T1: Left greater than right facet hypertrophy results in moderate left, mild right foraminal stenosis. No significant central canal stenosis. IMPRESSION: 1. Exam limited by patient motion. 2. Multilevel cervical spondylosis, greatest at C5-C6, where there is severe central canal stenosis. at 1308 Reported and signed by: Ignacio Arshad M.D. CC: Vincent Sumner MDTechnologist: YANELIS HAJMUHAMMAD RT(R) Transcribed D/ (7111) t.SDR.SLJ [facility] NAME: JULI GORDON [address] [facility] PHYS: Vincent Garcia MD : 1945 AGE: 74 SEX: F [place], [place] [address]YJDD NO: [id number] LOC: Y.MRI PHONE #: [phone] EXAM DATE: 03/22/2019 STATUS: DEP CLI FAX #: [phone] RAD #: D/C DT PAGE 1 Signed Report Patient Name: JULI GORDON Unit No: [id number] EXAMS: CPT CODE: [id number] MRI C-SPINE W/O CONT 92306 <Continued> Orig Print D/T: S: 03/23/2019 (9995) [facility] NAME: JULI GORDON [address] [facility] PHYS: Vincent Garcia MD : 1945 AGE: 74 SEX: F [place], [place] [address] LOC: Y.MRI PHONE #: [phone] EXAM DATE: 03/22/2019 STATUS: DEP CLI FAX #: [phone] RAD #: D/C DT PAGE 2 Signed Report - CT UP EXTREM W/O CONT [id number] 08:31:00 Patient Name: JULI GORODN Unit No: [id number] EXAMS: CPT CODE: [id number] CT UP EXTREM W/[place] [address] CT OF THE RIGHT SHOULDER WITH 3-D, SAGITTAL AND CORONAL RECONSTRUCTIONS DIAGNOSIS: There is a medial displaced anterior inferior glenoid fracture. COMMENT: COMPARISON: No prior exams available. Scans were performed with thin sections and reconstructions were obtained. CT radiation dose optimization isachieved for this examination by the use of a CT protocol in accordance with ACR practice standards and adherence to insurance sales executive's recommendations. 3-D reconstructions were performed on a separate workstation. Glenoid fracture is present with displacement as noted. No other fractures are seen. There is no evidence for rotator cuff atrophy. Reconstructions help confirm these impressions. at 0831 Reported and signed by: Reid Holman MD CC: Vincent Sumner MD Technologist: Monica Ross, RT(R) CTDI: DLP: Trnscrpt: 02/02/2019 (0831) Elle [facility] NAME: JULI GORDON [address] [facility] PHYS: Vincent Garcia MD : 1945 AGE: 73 SEX: F [place] [address] LOC: Y.RAD PHONE #: [phone] EXAM DATE: 02/01/2019 STATUS: DEP CLI FAX #: [phone] RAD #: D/C DT PAGE 1 Signed Report Patient Name: JULI GORDON Unit No: [id number] EXAMS: CPT CODE: [id number] CT UP EXTREM W/[place] [address] <Continued> Orig Print D/T: S: 02/02/2019 (0834)[facility] NAME: JULI GORDON [address] [place] [address] PHYS: Vincent Garcia MD : 1945GE: 73 SEX: F [place] [address] LOC: Y.RAD CARMEN NE #: [phone] EXAM DATE: 02/01/2019 STATUS: DEP CLI FAX #: [phone] RAD #: D/C DT PAGE 2 Signed Report
--- OUTSIDE RECORDS SUMMARY | 2020-05-01 10:20 | XMS REPORT | Clinical Summary ---
:1945 Author Organization [facility] Address [address] [place] [address] Care Team Providers Name Role Phone Layla Nickerson MD, A. Primary Care Provider Allergies Active Allergy Reactions Severity Noted Date Comments Codeine 08/25/2017 Hydrocodone 08/25/2017 Medications Medication Sig Dispensed Refills Start Date End Date Status levothyroxine Take 100 mcg by 0 Active (SYNTHROID, LEVOXYL) mouth daily. 100 mcg tablet ALPRAZolam (XANAX) 0.5 Take 0.5 mg by 0 Active MG tablet mouth nightly as needed for anxiety. CETIRIZINE HCL (ZYRTEC Take by mouth 0 Active ORAL) daily. losartan (COZAAR) 50 Take 50 mg by 0 Active MG tablet mouth daily. cholecalciferol, Take 2,000 Units 0 Active vitamin D3, (VITAMIN by mouth daily. D3) 2,000 unit capsule capsule ondansetron (Zofran) 4 Take 1 tablet (4 20 tablet 0 04/23/2020 05/23/2020 Active MG tablet mg total) by mouth every 8 (eight) hours as needed for nausea or vomiting for up to 30 days. Active Problems No known active problems Encounters Date Type Specialty Care Team Description 04/23/2020 Emergency Emergency Medicine Ruben Price, Viral gastroenteritis DO (Primary Dx) 04/23/2020 Travel after 05/01/2019 Surgical History Surgery Date Site/Laterality Comments HYSTERECTOMY COLON SURGERY Resection 2007 TONSILLECTOMY 06/01/1969 - 05/31/1970 HERNIA REPAIR 12/30/2010 - Incisional Herni a Repair 01/29/2011 REPLACEMENT TOTAL KNEE 05/01/2012 - Right 05/31/2012 PARTIAL HIP ARTHROPLASTY 07/30/2014 - 08/29/2014 Medical History Medical History Date Comments Hypothyroidism History of colon cancer Obesity Family History Medical History Relation Name Comments Diabetes Brother Diabetes Mother Relation Name Status Comments Brother Mother Social History Tobacco Use Types Packs/Day Years Used Date Never Smoker Smokeless Tobacco: Never Used Alcohol Use Drinks/Week oz/Week Comments No Sex Assigned at Date Recorded Not on file Job Start Date Occupation Industry Not on file Not on file Not on file COVID-19 Exposure Response Date Recorded In the last month, have you been in contact with No / Unsure 04/23/2020 2:53 PM SANITATION SUPERINTENDENT someone who was confirmed or suspected to have Coronavirus / COVID-19? Last Filed Vital Signs Vital Sign Reading Time Taken Comments Blood Pressure 120/59 04/23/2020 4:06 PM [employer]ITATION SUPERINTENDENT Pulse 65 04/23/2020 4:06 PM [employer]ITATION SUPERINTENDENT Temperature 36.3 C (97.3 F) 04/23/2020 2:18 PM SANITATION SUPERINTENDENT Respiratory Rate 18 04/23/2020 4:06 PM SANITATION SUPERINTENDENT Oxygen Saturation 97% 04/23/2020 4:06 PM SANITATION SUPERINTENDENT Inhaled Oxygen Concentration - - Weight 99.8 kg (220 lb) 04/23/2020 2:02 PM SANITATION SUPERINTENDENT Height 161.3 cm (5' 3.5") 04/23/2020 2:02 PM SANITATION SUPERINTENDENT Body Mass Index 38.36 04/23/2020 2:02 PM SANITATION SUPERINTENDENT Plan of Treatment Health Maintenance Due Date Last Done Comments SHINGLES VACCINES (#1) 1993 65+ PNEUMOCOCCAL VACCINE (1 of 1 - PPSV23) 02/15/2008 INFLUENZA VACCINE 12/31/2019 Procedures Procedure Name Priority Date/Time Associated Comments Diagnosis CT ABDOMEN PELVIS WO STAT 04/23/2020 3:42 Res ults for this CONTRAST PM [employer]ITATION SUPERINTENDENT procedure are i n the results section. URINALYSIS STAT 04/23/2020 3:02 Results for this PM [employer]ITATION SUPERINTENDENT procedure are i n the results section. ESTIMATED GFR STAT 04/23/2020 2:52 Results fo r this PM [employer]ITATION SUPERINTENDENT procedure are i n the results section. AMYLASE LEVEL STAT 04/23/2020 2:52 Results fo r this PM [employer]ITATION SUPERINTENDENT procedure are i n the results section. COMPREHENSIVE STAT 04/23/2020 2:52 Results fo r this METABOLIC PANEL PM [employer]ITATION SUPERINTENDENT procedure ar e in the results section. LACTIC ACID, I-STAT STAT 04/23/2020 2:52 Resu lts for this PM [employer]ITATION SUPERINTENDENT procedure are i n the results section. HC COMPLETE BLD COUNT STAT 04/23/2020 2:52 Re sults for this W/AUTO DIFF PM [employer]ITATION SUPERINTENDENT procedure are i n the results section. after 05/01/[address] Abdomen Pelvis Wo Contrast (04/23/2020 3:42 PM SANITATION SUPERINTENDENT) Specimen Narrative Performed At EXAMINATION: CT ABDOMEN PELVIS WO CONT RAST [facility] CLINICAL HISTORY: Abd pain unspecifi ed TECHNIQUE: Multiple axial images of the abdomen and pelvis were o btained without intravenous administration of iodinated contrast. Sagi ttal and coronal computerized reformatted images were also obtained. Th e lack of intravenous contrast reduces the sensiti vity of detecting solid organ disease. Radiation dose reductio n technique was utilized. COMPARISON: None. IMPRESSION: Abdomen: 1. Scans through the lower chest demonstrate coronary artery calcifications. 2.Liver, pancreas, left adrenal, and kidneys do not de monstrate masses without contrast. There is a 1.7 cm hypodensity in the upper pole the left kidney, probably related to a cyst. 3.There is a 1.7 cm hypodensity in the upper pole the spleen, also probably related to a cyst. There are multiple calcifi ed splenic granulomata. 4.There is a 3.3 cm hypodense mass in the right adrena l gland, most likely related to an adenoma. This can b e confirmed by MRI. 5.Status post cholecystectomy. 6.Aorta is atherosclerotic. Maximum transverse dimensi on is approximately 3.4 cm. 7.There is no retroperitoneal adenopathy or ascites. 8.There is no intestinal obstruction. Pelvis: 1. Status post hysterectomy. 2.Sigmoid diverticulosis without evidenc e of diverticulitis. 3.No pelvic mass, adenopathy, or fluid c ollection. 4.There is generalized osteopenia. There are degenerat ronni changes in the lower thoracic and lumbar spine. Status post lumbar la minectomy and fusion. 5.Status post right hip replacement. [facility]-[id number] Procedure Note Interface, Radiology Results Incoming - 04/23/2020 3:51 PM SANITATION SUPERINTENDENT EXAMINATION: CT ABDOMEN PELVIS WO CONTRAST CLINICAL HISTORY: Abd pain unspecified TECHNIQUE: Multiple axial images of the abdomen and pelvis were obtained without intravenous administration of iodinated contrast. Sagittal and coronal computerized reformatted images were also obtained. The lack of intravenous contrast reduces the sensiti vity of detecting solid organ disease. Radiation dose reduction technique was utilized. COMPARISON: None. IMPRESSION: Abdomen: 1. Scans through the lower chest demonst rate coronary artery calcifications. 2.Liver, pancreas, left adrenal, and kid neys do not demonstrate masses without contrast. There is a 1.7 cm hypodensity in the upper pole the left kidney, probably related to a cyst. 3.There is a 1.7 cm hypodensity in the u pper pole the spleen, also probably related to a cyst. There are multiple calcified splenic granulomata. 4.There is a 3.3 cm hypodense mass in th e right adrenal gland, most likely related to an adenoma. This can be confirmed by MRI. 5.Status post cholecystectomy. 6.Aorta is atherosclerotic. Maximum parkinson sverse dimension is approximately 3.4 cm. 7.There is no retroperitoneal adenopathy or ascites. 8.There is no intestinal obstruction. Pelvis: 1. Status post hysterectomy. 2.Sigmoid diverticulosis without evidenc e of diverticulitis. 3.No pelvic mass, adenopathy, or fluid c ollection. 4.There is generalized osteopenia. There are degenerative changes in the lower thoracic and lumbar spine. Status post lumbar laminectomy and fusion. 5.Status post right hip replacement. [facility]-[id number] Performing Organization Address City/State/[facility] Code Phon e Number [facility] [address] [place] [address] Urinalysis (04/23/2020 3:02 PM SANITATION SUPERINTENDENT) Glucose, UA Negative Negative [facility] Bilirubin, UA Negative Negative [facility] Ketones, UA Negative Negative [facility] Specific gravity, 1.020 1.001 - 1.035 [facility] UA [facility] Blood, UA Moderate (A) Negative [facility] Comment: [facility]UP[facility] Form Coverer Name: trainee EMERGENCY CARE Device ID: [id number] CENTER pH, UA 5.0 5.0 - 8.5 [facility] Protein, UA Negative Negative [facility] Urobilinogen, UA <2.0 <2.0 [facility] Nitrite, UA Negative Negative [facility] Leukocyte Negative Negative [facility] esterase, UA [facility] Color, UA Yellow [facility] Appearance, UA Hazy [facility] Specimen Urine Performing Organization Address City/[facility]/ZIP Code Phon e Number DEPARTMENT OF PATHOLOGY AND [address] [place] [address] [address] [place] [address] EMERGENCY CARE CENTER Estimated GFR (04/23/2020 2:52 PM SANITATION SUPERINTENDENT) Estimated GFR 71 mL/min/1.73 [facility] Comment: m2 [facility] Catergory Units Interpretation [facility] CARE G1 >=90 Normal or high CENTER G2 60-89 Mildly decreased G3a 45-59 Mildly to moderately decreas ed G3b 30-44 Moderately to severely decre ased G4 15-29 Severely decreased G5 <15 Kidney failure The eGFR was calculated using the Chronic Kidney Disea se Epidemiology Collaboration (CKD-EPI) equation. Interpretation is based on recommendations of the National Kidney Foundation-Kidney Disease Outcomes Raimundo lity Initiative (NKF-KDOQI) published in 2014. Specimen Plasma Performing Organization Address City/[facility] Code Phon e Number DEPARTMENT OF PATHOLOGY AND [address] [place] [address] [address] [place] [address] EMERGENCY [facility] Lactic acid, I-Stat (04/23/2020 2:52 PM SANITATION SUPERINTENDENT) Pathologist Sig nature Lactic acid, I-Stat 0.8 0.5 - 2.2 mmol/L [facility] Specimen Plasma Performing Organization Address City/[facility] Code Phon e Number DEPARTMENT OF PATHOLOGY AND [address] [place] [address] [phone] [place] [address] EMERGENCY [facility] CBC with platelet and differential (04/23/2020 2:52 PM SANITATION SUPERINTENDENT) Pathologist Sig nature WBC 8.31 4.50 - 11.00 k/uL [facility] RBC 4.50 4.20 - 5.50 m/uL [facility] HGB 14.5 12.0 - 16.0 g/dL [facility] HCT 43.3 37.0 - 47.0 % [facility] MCV 96.2 82.0 - 100.0 fL [facility] MCH 32.2 27.0 - 34.0 pg [facility] MCHC 33.5 31.0 - 37.0 g/dL [facility] RDW - SD 51.4 37.0 - 55.0 fL [facility] MPV 9.5 8.8 - 13.2 fL [facility] Platelet count 303 150 - 400 k/uL [facility] Neutrophils 69.2 (H) 39.0 - 69.0 % [facility] Lymphocytes 19.9 (L) 25.0 - 45.0 % [facility] Monocytes 10.2 (H) 0.0 - 10.0 % [facility] Eosinophils 0.6 0.0 - 5.0 % [facility] Basophils 0.1 0.0 - 1.0 % [facility] Specimen Plasma Performing Organization Address City/[facility] Phon e Number DEPARTMENT OF PATHOLOGY AND [address] [place] [address] Amylase level (04/23/2020 2:52 PM SANITATION SUPERINTENDENT) Pathologist Sig nature Amylase 29 14 - 97 U/L [facility] Specimen Plasma Performing Organization Address City/[facility]/ZIP Code Phon e Number DEPARTMENT OF PATHOLOGY AND [address] [place] [address] Comprehensive metabolic panel (04/23/2020 2:52 PM SANITATION SUPERINTENDENT) Pathologist Sig nature Sodium 134 128 - 145 mEq/L [facility] Potassium 4.9 3.6 - 5.1 mEq/L [facility] CO2 21 18 - 33 mEq/L [facility] Chloride 106 98 - 108 mEq/L [facility] Glucose 83 73 - 118 mg/dL [facility] Calcium 9.1 8.0 - 10.3 mg/dL [facility] BUN 17 7 - 22 mg/dL [facility] Creatinine 0.8 0.5 - 0.9 mg/dL [facility] Alkaline phosphatase 74 42 - 141 U/L [facility] ALT 22 10 - 47 U/L [facility] AST 28 11 - 38 U/L [facility] Total bilirubin 0.6 0.2 - 1.6 mg/dL [facility] Albumin 3.7 3.3 - 5.5 g/dL [facility] Protein 7.4 6.4 - 8.1 g/dL [facility] Anion gap 7@ANIO 7 - 15 mEq/L [facility] A/G ratio 1.0 0.7 - 3.8 [facility] Specimen Plasma Performing Organization Address City/State/ZIP [facility] Phon e Number DEPARTMENT OF PATHOLOGY AND [address] [place] [phone] [facility], [address] [address] [facility]ERGENCY C[facility] [place] after 05/01/2019 Insurance Payer Benefit Plan / Subscriber ID Effective Dates Phone Addre ss Type Group MEDICARE MEDICARE PART A [id number] 2008-Present [place], [place] Medicare AND B Advance Directives For more information, please contact: [phone] Type Date Recorded 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
[2020-05-01] MEDS ORDERED: HYDROCORTISONE ACETATE 25MG SUPP PR ONE (11:15)
[2020-05-01] MEDS ORDERED: FORMULATION-R RECTAL 30GM PR ONE (11:15)
[2020-05-01] MEDS ORDERED: HYDROMORPHONE HCL 1 MG/ML INJ ONE (11:21)
[2020-05-01] MEDS ORDERED: ALPRAZOLAM 1 MG TABLET ONE (11:21)
[2020-05-01] MEDS ORDERED: LIDOCAINE JELLY 2%- 5 ML TUBE ONE (11:39)
[2020-05-01] MEDS ORDERED: NA CHLORIDE 0.9% 1,000 ML ONE (12:16)
[2020-05-01 12:40] LABS: Absolute Lymphocytes (CBC) 1.7 K/uL (0.7-4.9); Basophils % 0.5 % (0-1.3); Hematocrit 36.4 % (36.0-45.0); Lymphocytes % 19.9 % (15.3-44.8); MPV 8.4 fL (7.6-11.3); RBC Red Blood Cell Count 3.76 M/uL (3.86-4.86)
[2020-05-01 12:48] LABS: Potassium 4.6 mmol/L (3.5-5.1)
[2020-05-01 13:13] LABS: Thyroid Stimulating Hormone 15.4 uIU/mL (0.360-3.740)
--- NOTE | 2020-05-01 13:49 | EDPHYS ---
Physician Documentation [facility] Name: Delfina Vinson Age: 75 yrs Sex: Female : 1945 Arrival Date: 05/01/2020 Time: 10:11 Bed 18 Private MD: BERKLEY Physician Cody Hubbard HPI: 05/01 12:45 This 75 yrs old Female presents to ER via Wheelchair with complaints of snw Abdominal Pain, Vomiting/Diarrhea. 12:45 The patient presents with abdominal pain that is diffuse, rectal pain, burning. Onset: snw The symptoms/episode began/occurred gradually, 5 day(s) ago, and became persistent. Associated signs and symptoms: Pertinent positives: diarrhea, dysuria, nausea, rectal pain. The symptoms are described as burning, constant, stabbing. Severity of pain: At its worst the pain was incapacitating. It is unknown whether or not the patient has had similar symptoms in the past. pt has recently been seen by Dr. Mcallister, Dr. Lindsay, this is third ED visit since onset of symptoms. Historical: - Allergies: 10:27 No Known Allergies; sv - Home Meds: 15:24 Synthroid 100 mcg Oral tab 1 tab once daily [Active]; olmesartan 20 mg Oral once daily sv [Active]; gabapentin 300 mg Oral cap 2 caps 3 times per day [Active]; tramadol 50 mg Oral tab 2 tabs twice a day [Active]; Xanax 0.5 mg Oral tab twice a day [Active]; - PMHx: 10:27 Hypertension; Hypothyroidism; sv 15:24 Colon cancer; Shingles; sv - PSHx: 15:24 Back; Tonsillectomy; Hysterectomy; Right hip; Right knee; Appendectomy; sv Cholecystectomy; Colon resection; - Immunization history:: Adult Immunizations up to date. - Social history:: Smoking status: . ROS: 12:44 Eyes: Negative for injury, pain, redness, and discharge, ENT: Negative for injury, snw pain, and discharge, Neck: Negative for injury, pain, and swelling, Cardiovascular: Negative for chest pain, palpitations, and edema, Respiratory: Negative for shortness of breath, cough, wheezing, and pleuritic chest pain, Back: Negative for injury and pain, : Negative for injury, bleeding, discharge, and swelling, MS/Extremity: Negative for injury and deformity, Skin: Negative for injury, rash, and discoloration. 12:44 Constitutional: Positive for body aches, fatigue, malaise, poor PO intake. 12:44 Abdomen/GI: Positive for vomiting, diarrhea, abdominal cramps, rectal pain. 12:44 Neuro: Positive for altered mental status, last night - wandering. Exam: 12:38 Head/Face: Normocephalic, atraumatic. Eyes: Pupils equal round and reactive to light, snw extra-ocular motions intact. Lids and lashes normal. Conjunctiva and sclera are non-icteric and not injected. Cornea within normal limits. Periorbital areas with no swelling, redness, or edema. ENT: Nares patent. No nasal discharge, no septal abnormalities noted. Tympanic membranes are normal and external auditory canals are clear. Oropharynx with no redness, swelling, or masses, exudates, or evidence of obstruction, uvula midline. Mucous membranes moist. Neck: Trachea midline, no thyromegaly or masses palpated, and no cervical lymphadenopathy. Supple, full range of motion without nuchal rigidity, or vertebral point tenderness. No Meningismus. Chest/axilla: Normal chest wall appearance and motion. Nontender with no deformity. No lesions are appreciated. Cardiovascular: Regular rate and rhythm with a normal S1 and S2. No gallops, murmurs, or rubs. Normal PMI, no JVD. No pulse deficits. Respiratory: Lungs have equal breath sounds bilaterally, clear to auscultation and percussion. No rales, rhonchi or wheezes noted. No increased work of breathing, no retractions or nasal flaring. Back: No spinal tenderness. No costovertebral tenderness. Full range of motion. MS/ Extremity: Pulses equal, no cyanosis. Neurovascular intact. Full, normal range of motion. Neuro: Awake and alert, GCS 15, oriented to person, place, time, and situation. Cranial nerves II-XII grossly intact. Motor strength 5/5 in all extremities. Sensory grossly intact. Cerebellar exam normal. Normal gait. 12:38 Constitutional: The patient appears alert, anxious, frail, obese, tearful 12:38 Abdomen/GI: Inspection: obese Bowel sounds: diminished, in the right upper quadrant, left upper quadrant and left lower quadrant, Rectal exam: rectal tone normal, hemorrhoid(s), external, with pain, tenderness, that is severe, the exam is chaperoned by the nurse, placed lido jelly, anusol HC supp and anusol cream. 12:38 Skin: Appearance: Color: pale, Temperature: cool, Moisture: dry. Vital Signs: 10:28 BP 157 / 81; Pulse 57; Resp 16; Temp 97.7; Pulse Ox 99% ; sv 12:00 BP 117 / 52; Pulse 59; Resp 17; Pulse Ox 94% on R/A; ll1 13:00 BP 141 / 62; Pulse 58; Resp 17; Pulse Ox 92% on R/A; ll1 14:00 BP 146 / 62; Pulse 60; Resp 17; Pulse Ox 92% on R/A; ll1 15:19 Weight 102.06 kg; Height 5 ft. 3 in. (160.02 cm); sv 15:19 Body Mass Index 39.86 (102.06 kg, 160.02 cm) sv Procedures: 11:45 Peripheral line: by aseptic technique a peripheral line was placed in the right snw external jugular vein. MDM: 10:46 Patient medically screened. [facility] 11:45 Data reviewed: vital signs, nurses notes. Data interpreted: Pulse oximetry: on room air snw is 99 %. Interpretation: normal. Counseling: I had a detailed discussion with the patient and/or guardian regarding: the historical points, exam findings, and any diagnostic results supporting the discharge/admit diagnosis, the presence of at least one elevated blood pressure reading (>120/80) during this emergency department visit, lab results, radiology results. Physician consultation: Alfonso Chan MD regarding consult, in the emergency department to see patient at 11:45. 13:49 Physician consultation: Delon Mcallister MD was called at 13:30, was contacted at 13:30, [facility] regarding admission, to the medical/surgical unit. Dr. Mcallister requires pt have colonoscopy during this hospital admission. Dr. Chan aware and agrees to perform colonoscopy. 05/01 11:16 Order name: Stool Culture [facility] 05/01 11:16 Order name: Ova And Parasites [facility] 05/01 11:16 Order name: Occult Blood [facility] 05/01 11:16 Order name: Fecal Leukocyte Stain [facility] 05/01 11:16 Order name: CDIFF [facility] 05/01 11:17 Order name: Stool Culture [facility] 05/01 11:17 Order name: Ova and Parasites [facility] 05/01 11:53 Order name: Blood Culture Adult (2) 05/01 11:53 Order name: CBC with Diff; Complete Time: 12:50 05/01 11:53 Order name: Basic Metabolic Panel; Complete Time: 12:57 05/01 11:55 Order name: Lipase; Complete Time: 13:46 [facility] 05/01 11:55 Order name: TSH; Complete Time: 13:46 [facility] 05/01 13:13 Order name: T4 Free; Complete Time: 13:46 [facility] 05/01 16:26 Order name: Urine Microscopic Only 05/01 11:16 Order name: Consult Surgery-Alfonso Chan MD (GENERAL SURGERY) [facility] 05/01 16:27 Order name: Urine Dipstick--Ancillary (enter results) bd Administered Medications: 11:15 Drug: XANax Tablet 1 mg Route: PO; 1 13:59 Follow up: Response: No adverse reaction; Anxiety decreased; RASS: Alert and Calm (0) [facility] 11:16 Drug: Dilaudid 1 mg Route: IM; Site: right vastus lateralis; 1 13:58 Follow up: Response: No adverse reaction; Pain is decreased; RASS: Alert and Calm (0) 1 11:30 Drug: Lidocaine Gel 2 % 1 application Route: Mucous Membrane; 1 13:59 Follow up: Response: No adverse reaction; RASS: Alert and Calm (0) 1 11:35 Drug: Anusol Ointment 1 inches Route: HI; ll1 13:59 Follow up: Response: No adverse reaction; RASS: Alert and Calm (0) 1 11:35 Drug: Anusol-HC 25 mg 25 mg Route: HI; ll1 13:59 Follow up: Response: No adverse reaction; Pain is decreased; RASS: Alert and Calm (0) 1 12:13 Drug: NS 0.9% 500 ml Route: IV; Rate: bolus; Site: Other; ll1 14:00 Follow up: Response: No adverse reaction; RASS: Alert and Calm (0); IV Status: ll1 Completed infusion; IV Intake: 500ml 12:13 Drug: NS 0.9% 1000 ml Route: IV; Rate: 125 ml/hr; Site: Other; [facility] Disposition: 05/02 07:48 Co-signature as Attending Physician, Cody Hubbard MD I agree with the assessment and [facility] plan of care. Disposition: 05/01/20 13:48 Hospitalization ordered by Delon Mcallister for Inpatient Admission. Preliminary diagnosis are Unspecified abdominal pain, Diarrhea, unspecified. - Bed requested for Telemetry/MedSurg (Inpatient). - Status is Inpatient Admission. mw2 - Condition is Stable. - Problem is an acute exacerbation. - Symptoms have worsened. Signatures: Dispatcher [employer] EDMS Rosalina Pichardo Stephanie, RN RN Cody Quintero MD MD cha Waters, Shelly, DISTRICT COURT JUDGE-C DISTRICT COURT JUDGE-[place] Lizabeth Lazaro RN RN tl1 Eleanor Olivarez mw2 Josefa Carrera RN RN ll1 Corrections: (The following items were deleted from the chart) 05/01 12:38 12:37 Peripheral line: by aseptic technique a peripheral line was placed in the right snw external jugular vein, snw 15:11 13:48 Hospitalization Ordered by Delon Mcallister MD for Inpatient Admission. Preliminary bd diagnosis is Unspecified abdominal pain; Diarrhea, unspecified. Bed requested for Telemetry/MedSurg (Inpatient). Status is Inpatient Admission. Condition is Stable. Problem is an acute exacerbation. Symptoms have worsened. snw 20:57 15:11 05/01/2020 13:48 Hospitalization Ordered by Delon Mcallister MD for Inpatient tl1 Admission. Preliminary diagnosis is Unspecified abdominal pain; Diarrhea, unspecified. Bed requested for [facility] ER HOLD. Status is Inpatient Admission. Condition is Stable. Problem is an acute exacerbation. Symptoms have worsened. bd 23:43 20:57 05/01/2020 13:48 Hospitalization Ordered by Delon Mcallister MD for Inpatient mw2 Admission. Preliminary diagnosis is Unspecified abdominal pain; Diarrhea, unspecified. Bed requested for Telemetry/MedSurg (Inpatient). Status is Inpatient Admission. Condition is Stable. Problem is an acute exacerbation. Symptoms have worsened. tl1
--- NOTE | 2020-05-01 13:49 | ER ---
Nurse's Notes [facility] Name: Delfina Vinson Age: 75 yrs Sex: Female : 1945 Arrival Date: 05/01/2020 Time: 10:11 Bed 18 Private MD: Diagnosis: Unspecified abdominal pain;Diarrhea, unspecified Presentation: 05/01 10:22 Chief complaint: Patient states: as admitted recently to the hospital and was sv discharged yesterday for the same symptoms. Pt begged Dr Mcallister to get her discharged. Pt reports that she is still having n/v/d today. Coronavirus screen: Client denies travel out of the [place] in the last 14 days. At this time, the client does not indicate any symptoms associated with coronavirus-19. Ebola Screen: No symptoms or risks identified at this time. Risk Assessment: Do you want to hurt yourself or someone else? Patient reports no desire to harm self or others. Onset of symptoms was April 2020. 10:22 Method Of Arrival: Wheelchair sv 10:22 Acuity: BILL 3 sv 14:07 Initial Sepsis Screen: Does the patient meet any 2 criteria? No. Patient's initial ll1 sepsis screen is negative. Does the patient have a suspected source of infection? Yes: Acute abdominal pain. Historical: - Allergies: 10:27 No Known Allergies; sv - Home Meds: 15:24 Synthroid 100 mcg Oral tab 1 tab once daily [Active]; olmesartan 20 mg Oral once daily sv [Active]; gabapentin 300 mg Oral cap 2 caps 3 times per day [Active]; tramadol 50 mg Oral tab 2 tabs twice a day [Active]; Xanax 0.5 mg Oral tab twice a day [Active]; - PMHx: 10:27 Hypertension; Hypothyroidism; sv 15:24 Colon cancer; Shingles; sv - PSHx: 15:24 Back; Tonsillectomy; Hysterectomy; Right hip; Right knee; Appendectomy; sv Cholecystectomy; Colon resection; - Immunization history:: Adult Immunizations up to date. - Social history:: Smoking status: . Screenin:00 Abuse screen: Denies threats or abuse. Nutritional screening: No deficits noted. ll1 Tuberculosis screening: No symptoms or risk factors identified. Fall Risk IV access (20 points). Ambulatory Aid- Crutches/Cane/Walker (15 pts). Gait- Impaired (20 pts.). Mental Status- Overestimates/Forgets Limitations (15 pts.). Total Greene Fall Scale indicates High Risk Score (45 or more points). Fall prevention measures have been instituted. Side Rails Up X 2 Placed Close to Nursing Station Frequent Obs/Assessments Occuring Family Present and informed to notify staff if the need to leave the bedside As available patient and family educated on Fall Prevention Program and Strategies. Assessment: 11:00 General: Appears uncomfortable, Behavior is calm, cooperative, appropriate for age. ll1 Pain: Complains of pain in rectal Pain currently is 10 out of 10 on a pain scale. Quality of pain is described as burning, aching, Aggravated by BM. Neuro: Level of Consciousness is awake, alert, obeys commands, Oriented to person, place, time, situation, Appropriate for age [employer] are weak bilaterally Moves all extremities. Full function Weakness Gait is steady, Speech is normal, Facial symmetry appears normal. Cardiovascular: No deficits noted. Respiratory: No deficits noted. GI: Abdomen is flat, Bowel sounds present X 4 quads. Abd is soft and non tender Abdomen is tender to palpation X 4 quads. Reports lower abdominal pain, upper abdominal pain, cramping, diarrhea, nausea, vomiting. 11:51 Reassessment: Marium wants CBC with diff, basic and blood cultures ordered. sv 12:00 Reassessment: Patient and/or family updated on plan of care and expected duration. Pain ll1 level reassessed. Patient is alert, oriented x 3, equal unlabored respirations, skin warm/dry/pink. Patient states feeling better. 13:00 Reassessment: Patient and/or family updated on plan of care and expected duration. Pain ll1 level reassessed. Patient is alert, oriented x 3, equal unlabored respirations, skin warm/dry/pink. 14:00 Reassessment: Patient and/or family updated on plan of care and expected duration. Pain ll1 level reassessed. Patient is alert, oriented x 3, equal unlabored respirations, skin warm/dry/pink. Vital Signs: 10:28 BP 157 / 81; Pulse 57; Resp 16; Temp 97.7; Pulse Ox 99% ; sv 12:00 BP 117 / 52; Pulse 59; Resp 17; Pulse Ox 94% on R/A; ll1 13:00 BP 141 / 62; Pulse 58; Resp 17; Pulse Ox 92% on R/A; ll1 14:00 BP 146 / 62; Pulse 60; Resp 17; Pulse Ox 92% on R/A; ll1 15:19 Weight 102.06 kg; Height 5 ft. 3 in. (160.02 cm); sv 15:19 Body Mass Index 39.86 (102.06 kg, 160.02 cm) sv ED Course: 10:11 Patient arrived in ED. mr 10:21 Arm band placed on. sv 10:27 Triage completed. sv 10:33 Josefa Carrera, RN is Primary Nurse. ll1 10:40 Patient has correct armband on for positive identification. Bed in low position. Call ll1 light in reach. Side rails up X2. Pulse ox on. NIBP on. 10:44 Marium Mosquera FNP-C is PHCP. snw 10:44 Cody Hubbard MD is Attending Physician. snw 13:47 Delon Mcallister MD is Hospitalizing Provider. snw Administered Medications: 11:15 Drug: XANax Tablet 1 mg Route: PO; ll1 13:59 Follow up: Response: No adverse reaction; Anxiety decreased; RASS: Alert and Calm (0) ll1 11:16 Drug: Dilaudid 1 mg Route: IM; Site: right vastus lateralis; ll1 13:58 Follow up: Response: No adverse reaction; Pain is decreased; RASS: Alert and Calm (0) ll1 11:30 Drug: Lidocaine Gel 2 % 1 application Route: Mucous Membrane; ll1 13:59 Follow up: Response: No adverse reaction; RASS: Alert and Calm (0) ll1 11:35 Drug: Anusol Ointment 1 inches Route: WV; ll1 13:59 Follow up: Response: No adverse reaction; RASS: Alert and Calm (0) ll1 11:35 Drug: Anusol-HC 25 mg 25 mg Route: [place]V; ll1 13:59 Follow up: Response: No adverse reaction; Pain is decreased; RASS: Alert and Calm (0) ll1 12:13 Drug: NS 0.9% 500 ml Route: IV; Rate: bolus; Site: Other; ll1 14:00 Follow up: Response: No adverse reaction; RASS: Alert and Calm (0); IV Status: ll1 Completed infusion; IV Intake: 500ml 12:13 Drug: NS 0.9% 1000 ml Route: IV; Rate: 125 ml/hr; Site: Other; ll1 Intake: 14:00 IV: 500ml; Total: 500ml. ll1 Outcome: 13:48 Decision to Hospitalize by Provider. snw 23:43 Patient left the ED. mw2 Signatures: Emilie Pate RN RN Marium Mojica FNP-C DIRECTOR CLOUD TRANSFORMATION-[place]verett Laura Webb, Eleanor mw2 Josefa Carrera RN RN ll1 Corrections: (The following items were deleted from the chart) 11:53 10:28 Pulse 57bpm; Resp 16bpm; Pulse Ox 99%; Temp 97.7F; sv sv 13:51 10:28 Initial Sepsis Screen: Does the patient meet any 2 criteria? No. Patient's mg1 initial sepsis screen is negative. Does the patient have a suspected source of infection? No. Patient's initial sepsis screen is negative. sv
[2020-05-01] MEDS ORDERED: ACETAMINOPHEN 500 MG TAB PO PRN (15:17)
[2020-05-01] MEDS ORDERED: MORPHINE 4 MG/ML SYR IV PRN (15:17)
[2020-05-01] MEDS ORDERED: D5 0.45 NS 1,000 ML IV SCH (15:17)
[2020-05-01 15:20] VITALS: BMI 39.8
[2020-05-01] MEDS ORDERED: BISACODYL E.C. 5 MG TAB PO ONE ×3 (15:44→16:26)
[2020-05-01] MEDS ORDERED: MAGNESIUM CITRATE 300 ML BOT ONE (15:44)
[2020-05-01] MEDS ORDERED: PNEUMOCOCCAL VACCINE 0.5 ML IMVAC ONE (16:00)
[2020-05-01] MEDS ORDERED: INFLUENZA VACCINE (for 3y+) 0.5 ML DOSE IMVAC ONE (16:00)
[2020-05-01] MEDS ORDERED: D5 0.45 NS 1,000 ML IV ONE (16:57)
[2020-05-01] MEDS ORDERED: MORPHINE 4 MG/ML SYR ONE (16:57)
[2020-05-01] MEDS ORDERED: MAGNESIUM CITRATE 300 ML BOT PO SCH (17:00)
[2020-05-01 18:26] LABS: Urine Bacteria >50 /HPF (<20); Urine RBC <5 /HPF (NONE SEEN)
[2020-05-01] MEDS ORDERED: PROMETHAZINE INJ 25 MG/ML AMP ONE ×2 (20:15→20:31)
[2020-05-01] MEDS ORDERED: MORPHINE 2 MG/ML SYR ONE (20:43)
[2020-05-01] MEDS: D5 0.45 NS 1,000 ML IV SCH (21:00)
[2020-05-01] MEDS: PROMETHAZINE INJ 25 MG/ML AMP IV PRN (21:03)
[2020-05-01] MEDS: MORPHINE 2 MG/ML SYR IV PRN (21:06)
[2020-05-01] MEDS: CIPROFLOXACIN 400mg IV 400 MG/200 ML BAG IV SCH (21:11)
[2020-05-01] MEDS ORDERED: CIPROFLOXACIN 400mg IV 400 MG/200 ML BAG IV ONE (21:24)
[2020-05-02] MEDS: D5 0.45 NS 1,000 ML IV SCH ×2 (00:10→21:24)
[2020-05-02] MEDS: METRONIDAZOLE 500mg IVPB 500 MG/100 ML BAG IV SCH ×4 (00:10→17:02)
[2020-05-02] MEDS: MORPHINE 2 MG/ML SYR IV PRN ×4 (01:00→11:48)
[2020-05-02] MEDS ORDERED: FLEET ENEMA ADULT PR PRN ×2 (02:05→16:00)
[2020-05-02 04:09] LABS: Absolute Lymphocytes (CBC) 1.9 K/uL (0.7-4.9); Basophils % 1.1 % (0-1.3); Hematocrit 36.6 % (36.0-45.0); MPV 8.3 fL (7.6-11.3); RBC Red Blood Cell Count 3.85 M/uL (3.86-4.86)
[2020-05-02] MEDS: PROMETHAZINE INJ 25 MG/ML AMP IV PRN ×2 (04:11→21:24)
[2020-05-02 05:20] LABS: Potassium 4.5 mmol/L (3.5-5.1)
[2020-05-02] MEDS: CIPROFLOXACIN 400mg IV 400 MG/200 ML BAG IV SCH ×2 (08:31→21:08)
[2020-05-02] MEDS ORDERED: LIDOCAINE JELLY 2%- 5 ML TUBE TOP ONE ×2 (08:33→11:45)
--- NOTE | 2020-05-02 08:40 | RAD REPORT ---
EXAM DESCRIPTION: CTAbdomen Pelvis W Contrast - 05/01/2020 9:28 pm CLINICAL HISTORY: Abdominal pain. abdominal pain COMPARISON: Abdomen Pelvis Wo Contrast dated 04/29/2020 TECHNIQUE: Biphasic CT imaging of the abdomen and pelvis was performed with 100 ml non-ionic IV cont rast. All CT scans are performed using dose optimization technique as appropriate and may include automated exposure control or mA/KV adjustment according to patient size. FINDINGS: Mild ground-glass opacities are present in both posterior lung bases.Small hiatal hernia. Cholecystectomy clips. No aggressive liver lesion or biliary dilatation. The spleen, pancreas, left adrenal gland are normal . The right adrenal gland contains a 24 mm mass, favored to represent a benign adenoma. No urinary tr act stone or hydronephrosis. Small benign cyst is seen in the cortex of left kidney. No bowel obstruction, free air, free fluid or abscess. Sigmoid diverticulosis is present without evid ence of diverticulitis appendectomy. No evidence of significant lymphadenopathy. 3.5 cm infrarenal a bdominal aortic aneurysm. Right total hip arthroplasty noted. Hardware is present involving the lower lumbar spine. IMPRESSION: No acute intra-abdominal or pelvic finding.
--- NOTE | 2020-05-02 08:56 | P.PN ---
Subjective Date of Service: 05/02/20 Subjective: No new changes (Patient has anal pain with bowel movements) Physical Examination - Vital Signs Temperature: 98.3 F Blood Pressure: 144/67 Pulse: 84 Respirations: 18 Pulse Ox (%): 96 - Physical Exam General: Alert, Mild distress HEENT: Atraumatic, Mucous membr. moist/pink Respiratory: Clear to auscultation bilaterally Gastrointestinal: Soft and benign, Non-distended, No ascites, No tenderness, No masses, No rebound, No guarding Neurological: Normal speech Rectal: Tenderness - Studies Laboratory Data (last 24 hrs) 05/01/20 11:30: Lipase 177 05/01/20 11:30: Sodium 144, Potassium 4.6, BUN 34 H D, Creatinine 0.94, Glucose 75 05/01/20 11:30: WBC 8.4, Hgb 12.1, Hct 36.4, Plt Count 375 Microbiology Data (last 24 hrs): 04/30/20 05:40 Stool Occult Blood - Final Assessment And Plan - Current Problems (Diagnosis) (1) Chronic diarrhea Current Visit: No Status: Chronic Plan: I have explained the risks, benefits, and alternatives to Diagnostic colonoscopy including, but not limited to bleeding, infection, damage to surrounding organs, intestinal perforation, need for more surgery, all questions answered, patient agrees to proceed - continue IV hydration - lidocaine topical jelly for anorectal pain, A&D ointment for external anal area. - sitz baths TID and after every bowel movement - colonoscopy scheduled for
--- NOTE | 2020-05-02 09:33 | CON ---
Date of Consultation: 05/01/2020 Brief History Of Present Illness: The patient is a 75-year-old female, recently admitted t o the hospital with persistent diarrhea, malaise, and fatigue who was discharged yesterday prior to h er return to the hospital approximately less than 24 hours from discharge. She was worked up at that time for a persistent diarrhea, nausea, vomiting, and abdominal pain. All of her symptoms resolved and as such, she was sent home. She apparently was noted to be somewhat in pain and confused by her son who had noted that she had some low-grade confusion, walked around the house, seemed to be confus ed and altered mental status. As such, she is brought back to the hospital with the above-stated com plaints. During my examination, patient states she has rectal pain only with bowel movements and she still continues to have some loose bowel movements. Cultures were sent for both Clostridium diffici le as well as culture of her stool last admission, but the results are currently still pending. She was given a regimen of fiber, probiotics, and sitz baths and was instructed to come to see me in clin ic the very next day. However, as such, she came to the emergency room and did not follow up with me . She had a colonoscopy several years ago. She cannot recall the details of which, but it was perfo rmed in [place]. Therefore, I have been consulted to see the patient for possible colonoscopy due to her persistent diarrhea. Past Medical History: Significant for hypertension, hypothyroidism, colon cancer, shingles. Past Surgical History: She has had tonsillectomy, hysterectomy, right hip surgery, right knee surger y, appendectomy, cholecystectomy, and colon resection. She is uncertain what part of her colon was r esected. Allergies: NO KNOWN DRUG ALLERGIES. Medications: Include Xanax, gabapentin, Synthroid, Ultram, olmesartan. Social History: She denies smoking, alcohol, or recreational drug use. Family History: Her father had heart disease hypertension. Mother had diabetes. Review of Systems: Ten-point review of systems other than HPI, she admits to weakness, fatigue and continues to have ano rectal pain only with bowel movements. She had a CT abdomen and pelvis on 05/01 which was officially read as no acute intraabdominal pelvic findings. She had evidence of sigmoid diverticulosis without evidence of diverticulitis and appendectomy. She has a 3.5 cm infrarenal abdominal aortic aneurysm on previous imaging. Physical Examination: Vital Signs: At time of examination, her temperature is 98.3, heart rate was 84, respiratory rate 16 , blood pressure 144/67. General: She is awake, alert, and oriented. She is in minimal distress. HEENT: She is normocephalic. Sclerae icteric. Mucous membranes were moist. Oropharynx clear. Neck: Supple. No JVD. Chest: Normal expansion and excursion. Cardiovascular: Regular rate and rhythm. Pulmonary: Clear to auscultation bilaterally. Abdomen: Soft, nontender, nondistended. No rebound or guarding. No focal peritonitis. Rectal: She has large external anal hemorrhoids. There is no thrombosis in these areas. It is tend er to palpation and there are skin tags evident as well. There is no abscess or fluid collections dr parks at this point. Laboratory Exam: Reveals about white blood cell count of 8.4, hemoglobin is 12.1, hematocrit of 36.4 , platelet count is 375. Her sodium 144, potassium 4.6, chloride 118, carbon dioxide 22, BUN 34, cre atinine 0.9, glucose is 75. Lipase is 177. TSH is 15.4. Imaging: As described above. Assessment And Plan: This is a 75-year-old female who comes in with persistent diarrhea, dehydration , and anorectal pain. 1.Intravenous fluid hydration. 2.Continue medical management. 3.I have explained the risks, benefits, and alternatives of a diagnostic colonoscopy including, but not limited to bleeding, infection, damage to surrounding tissue, perforation of the intestines, need for further operations. The patient agrees to proceed as indicated. RIZWAN/JAQUI Voice ID: [id number] Report ID: [id number]
[2020-05-02 10:31] LABS: Urine Blood 2+ (NEG); Urine Glucose NEGATIVE (NEG); Urine Protein 1+ (NEG); Urine Specific Gravity 1.025 (1.005-1.030); Urine pH 5.5 (5.0-7.0)
[2020-05-02 12:07] LABS: C.diff Antigen/Toxin Ag neg : Tox neg (NEG : NEG)
[2020-05-02] MEDS ORDERED: HYDROCORTISONE ACETATE 25MG SUPP PR PRN (12:35)
[2020-05-02] MEDS ORDERED: ALPRAZOLAM 0.5 MG TABLET PO PRN (12:35)
[2020-05-02] MEDS ORDERED: MAGNESIUM CITRATE 300 ML BOT PO PRN (12:46)
[2020-05-02] MEDS ORDERED: LIDOCAINE JELLY 2%- 5 ML TUBE TOP PRN (12:51)
[2020-05-02] MEDS ORDERED: TRAMADOL HCL 50 MG TAB PO PRN (12:53)
[2020-05-02] MEDS: GABAPENTIN 300 MG CAP PO SCH ×2 (13:16→21:11)
[2020-05-02] MEDS: HYDROCORTISONE 2.5% RECT CR PR SCH ×3 (13:16→21:00)
[2020-05-02] MEDS ORDERED: GUAIFENESIN/DM 5 ML UCUP PO PRN (13:30)
[2020-05-02] MEDS ORDERED: BISACODYL E.C. 5 MG TAB PO ONE ×4 (16:00→17:00)
[2020-05-02] MEDS ORDERED: MAGNESIUM CITRATE 300 ML BOT PO SCH ×2 (17:00→21:00)
[2020-05-02] MEDS ORDERED: MORPHINE 2 MG/ML SYR IV PRN (17:57)
[2020-05-02] MEDS ORDERED: POLYETHYL GLY 3350 17 GM/DOSE PO ONE ×2 (18:00)
--- NOTE | 2020-05-02 18:02 | P.HP ---
Certification for Inpatient Patient admitted to: Inpatient With expected LOS: >2 Midnights Practitioner: I am a practitioner with admitting privileges, knowledge of patient current condition, hospital course, and medical plan of care. Services: Services provided to patient in accordance with Admission requirements found in Title 42 Section 412.3 of the Code of Federal Regulations Patient History Date of Service: 05/02/20 Reason for admission: ABDOMEN PAIN AND DIARRHEA History of Present Illness: WAS HERE FEW DAYS AGO FOR SEVERE DIARRHEA AND DEHYDRATION. SHE IMPROV ED ON IV HYDRATION AND INSISTED ON GOING HOME, I KEPT HER UNTIL PM AND SENT HER HOME. SHE HYDRATED BUT KEPT ON HAVING SEVERE PAIN IN RECTUM WITH EVEN URINATION SO SHE RETURNS TO ER. SHE HAS DIARRHEA FOR A MONTH. SHE HAS NOT SEEN GI DOCTOR YET THERE WERE NO APTS AVAILABLE FOR MONTHS. HER DOCTOR IS DR. TSANG. HER C DIFF TEST IS NEGATIVE. Allergies No Known Allergies Allergy (Verified 04/29/20 16:50) Home Medications: Alprazolam [Xanax] 0.5 mg PO BID 04/29/20 Gabapentin 600 mg PO TID 04/29/20 Levothyroxine Sodium [Synthroid] 100 mcg PO DAILY 04/29/20 Olmsartan Medoyomil 20 mg PO DAILY 04/29/20 Tramadol HCl [Ultram] 100 mg PO BID PRN 04/29/20 - Past Medical/Surgical History Has patient received pneumonia vaccine in the past: No Diabetic: No -: HTN -: colon cancer. no chemo or rad 2004 -: hypothyroid -: shingles -: back surg x2 -: TONSILLECTOMY -: hysterectomy -: hip rt -: rt knee -: CHOLECYSTECTOMY -: APPENDECTOMY -: colon resection - Family History Father -: Heart disease, Hypertension Mother -: Diabetes - Social History Smoking Status: Never smoker Alcohol use: No CD- Drugs: No Caffeine use: Yes Review of Systems 10-point ROS is otherwise unremarkable General: Weakness, Malaise Physical Examination - Vital Signs Temperature: 98 F Blood Pressure: 148/69 Pulse: 61 Respirations: 17 Pulse Ox (%): 95 - Physical Exam General: Moderate distress, Obese HEENT: Atraumatic, PERRLA, Mucous membr. moist/pink, EOMI, Sclerae nonicteric Neck: Supple, 2+ carotid pulse no bruit, No LAD, Without JVD or thyroid abnormality Respiratory: Clear to auscultation bilaterally, Normal air movement Cardiovascular: Regular rate/rhythm, Normal S1 S2 Gastrointestinal: Normal bowel sounds, Non-distended, Tenderness (DIFFUSE LOWER ABDOMEN TENDER. ) Musculoskeletal: No tenderness Integumentary: No rashes Neurological: Normal gait, Normal speech, Normal strength at 5/5 x4 extr, Normal tone, Normal affect Lymphatics: No axilla or inguinal lymphadenopathy - Studies Microbiology Data (last 24 hrs): 04/30/20 05:40 Stool Fecal Leukocyte Stain - Final 04/30/20 05:40 Stool Occult Blood - Final Assessment and Plan - Problems (Diagnosis) (1) Rectal pain Current Visit: Yes Status: Acute Plan: FISSURE ADVISE ANUSOL CREAM AND SUPPOSITORY. CRC IN AM. DR. URRUTIA. (2) Chronic diarrhea Current Visit: No Status: Chronic Plan: C DIFF NEG. MAY HAVE COLITIS. NEEDS GI EVAL. WBC NEG. - Advance Directives Does patient have a Living Will: No Does patient have a Durable POA for Healthcare: No
--- NOTE | 2020-05-02 18:08 | P.PN ---
Subjective Date of Service: 05/02/20 Chief Complaint: ABDOMEN PAIN AND DIARRHEA Subjective: No new changes PATIENT WAS SEEN IN ER LAST NIGHT AND TODAY AT LUNCH. HPI NOTE DONE A DAY LATER [employer] CONNECTION FROM HOME WAS NOT WORKING LAST NIGHT. SHE IS STABLE, CONFUSED FROM GETTING MORPHINE. DIARRHEA NAD RECTAL PAIN CONTINUE. Review of Systems 10-point ROS is otherwise unremarkable General: As per HPI Physical Examination - Vital Signs Temperature: 98 F Blood Pressure: 148/69 Pulse: 61 Respirations: 17 Pulse Ox (%): 95 - Physical Exam General: Alert, Moderate distress, Obese HEENT: Atraumatic, PERRLA, EOMI Neck: Supple, JVD not distended Respiratory: Clear to auscultation bilaterally, Normal air movement Cardiovascular: Regular rate/rhythm, Normal S1 S2 Gastrointestinal: Normal bowel sounds, No tenderness Musculoskeletal: No tenderness Integumentary: No rashes Neurological: Normal speech, Normal tone, Normal affect Lymphatics: No axilla or inguinal lymphadenopathy - Studies Microbiology Data (last 24 hrs): 04/30/20 05:40 Stool Fecal Leukocyte Stain - Final 04/30/20 05:40 Stool Occult Blood - Final Medications List Reviewed: Yes Assessment And Plan - Current Problems (Diagnosis) (1) Rectal pain Current Visit: Yes Status: Acute Plan: FISSURE ADVISE ANUSOL CREAM AND SUPPOSITORY. CRC IN AM. DR. URRUTIA. (2) Chronic diarrhea Current Visit: No Status: Chronic Plan: C DIFF NEG. MAY HAVE COLITIS. NEEDS GI EVAL. WBC NEG. CONTINUE ABX CRC IN AM.
[2020-05-02] MEDS ORDERED: FLEET ENEMA ADULT PR ONE (19:53)
[2020-05-02] MEDS: HYDROCORTISONE ACETATE 25MG SUPP PR SCH (21:08)
[2020-05-02] MEDS: ALPRAZOLAM 0.5 MG TABLET PO SCH (21:09)
[2020-05-02 22:27] LABS: MPV 8.2 fL (7.6-11.3)
[2020-05-02 22:35] LABS: Platelet Estimate ND
[2020-05-03] MEDS: METRONIDAZOLE 500mg IVPB 500 MG/100 ML BAG IV SCH ×4 (00:18→17:21)
[2020-05-03] MEDS: LEVOTHYROXINE SOD 0.1 MG TAB PO SCH (05:35)
[2020-05-03] MEDS ORDERED: ALBUTEROL 2.5 MG/3 ML NEB SOL NEB PRN (06:04)
[2020-05-03] MEDS: D5 0.45 NS 1,000 ML IV SCH ×2 (06:27→22:47)
--- NOTE | 2020-05-03 07:14 | RAD REPORT ---
EXAM DESCRIPTION: RAD - Chest Single View - 05/03/2020 6:22 am CLINICAL HISTORY: wheezing COMPARISON: None TECHNIQUE: AP portable chest image was obtained 05/03/2020 6:22 johns supine position . FINDINGS: Lung volumes are very low. No peripheral mass or consolidation. Minimal atelectasis seen w ith no failure or volume overload. Right hilar fullness accentuated by rotation and low lung volumes. Granulomatous calcifications are seen in the upper right mediastinum. Heart size normal for exam limitations. No vascular engorgement. Trachea is midline. No measurable pl eural effusion and no pneumothorax. No acute bony abnormality seen. No acute aortic findings suspecte d. IMPRESSION: No acute cardiopulmonary process.
[2020-05-03] MEDS: HYDROCORTISONE 2.5% RECT CR PR SCH ×4 (09:00→21:00)
[2020-05-03] MEDS: ENOXAPARIN 40 MG/0.4 ML SQ SCH (09:00)
[2020-05-03] MEDS: ALPRAZOLAM 0.5 MG TABLET PO SCH ×3 (09:00→21:00)
[2020-05-03] MEDS: GABAPENTIN 300 MG CAP PO SCH ×3 (09:00→20:59)
[2020-05-03] MEDS ORDERED: OLMESARTAN 20 MG PO SCH (09:00)
[2020-05-03] MEDS: HYDROCORTISONE ACETATE 25MG SUPP PR SCH ×2 (09:39→20:59)
[2020-05-03] MEDS: METHYLPREDNISOLONE 40 MG INJ IV SCH ×3 (09:39→17:21)
[2020-05-03] MEDS: Levofloxacin500mg IV 500 MG/100 ML BAG IV SCH (09:40)
[2020-05-03] MEDS: VALSARTAN 80 MG TAB PO SCH (09:41)
[2020-05-03] MEDS ORDERED: Ringers Lactate 1,000 ML IV ONE (12:03)
[2020-05-03] MEDS ORDERED: LIDOCAINE 1% MPF 5 ML VIAL ONE (12:23)
[2020-05-03] MEDS ORDERED: Phenylephrine HCl 10 MG/ML 1 ML VIAL ONE (12:23)
[2020-05-03] MEDS ORDERED: NS 0.9% VIAL 0 ML ONE (12:23)
[2020-05-03] MEDS ORDERED: propofoL 200 MG/20 ML VIAL IV ONE (12:23)
[2020-05-03] MEDS ORDERED: SIMETHICONE 40 MG/ 0.6 ML ONE (12:30)
--- NOTE | 2020-05-03 12:50 | ENDO RPT ---
[address], [address] COLONOSCOPY PROCEDURE REPORT EXAM DATE: 05/03/2020 PATIENT NAME: Delfina Vinson MR #: [id number] BIRTHDATE: 1945 ATTENDING: Alfonso Chan DR STATUS: inpatient - 7 HEALTH CARE ASSISTANT: Yun Wilson RN and Vincent Lucia [facility] INDICATIONS: The patient is a 75 yr old Female here for a colonoscopy due to diverticulosis, unexplained chronic diarrhea, and change in bowel habits PROCEDURE PERFORMED: Colonoscopy with biopsy MEDICATIONS: Per Anesthesia. ESTIMATED BLOOD LOSS: None CONSENT: The patient understands the risks and benefits of the procedure and understands that these risks include, but are not limited to: sedation, allergic reaction, infection, perforation and/or bleeding. Alternative means of evaluation and treatment include, among others: physical exam, x-rays, and/or surgical intervention. The patient elects to proceed with this endoscopic procedure. DESCRIPTION OF PROCEDURE: During intra-op preparation period all mechanical medical equipment was checked for proper function. Hand hygiene and appropriate measures for infection prevention was taken. Procedure, possible complications, alternatives including, but not limited to possibility of bleeding, perforation, tear, infection, sepsis, need for surgery, need for blood transfusion, were explained to the patient. After the risks, benefits and alternatives of the procedure were thoroughly explained, Informed consent was verified, confirmed and timeout was successfully executed by the treatment team. The patient was placed in the left lateral position. A digital rectal exam was performed and revealed external thrombosed hemorrhoids and A digital rectal exam was performed and revealed internal hemorrhoids. After appropriate level of anesthesia, the scope was passed. The [id number] ([id number]) endoscope was introduced through the anus and advanced to the ascending colon. The quality of the prep was poor. The instrument was then slowly withdrawn as the colon was fully examined. Scope withdrawal time was 12 minutes. COLON FINDINGS: There was mild diverticulosis noted in the sigmoid colon with associated muscular hypertrophy, colonic spasm and inflammatory changes. There was mild colitis noted in the right and left colon, random colonic biopsies were taken from the right colon, transverse, left colon areas of colitis and random. No bleeding was noted from the diverticulosis. There was evidence of a prior functional end-to-end ileocolonic surgical anastomosis in the right colon. Moderate sized internal and external hemorrhoids were found. Medium sized anal fissure was found in the anal canal. Retroflexed views revealed an anal fissure and Retroflexed views revealed medium hemorrhoids. The scope was then completely withdrawn from the patient and the procedure terminated. ADVERSE EVENTS: There were no complications. IMPRESSIONS: 1. There was mild diverticulosis noted in the sigmoid colon 2. Right sided colitis 3. Left sided colitis RECOMMENDATIONS: 1. avoid NSAIDS for 2 weeks 2. await biopsy results 3. follow-up: office 1 week(s) 4. follow-up: referring MD 2 week(s) 5. Supp,1 rectally prn 6. Anusol therapy 7. Monitor for any evidence of rectal bleeding. 8. hemorrhoidal hygiene 9. increase dietary water 10. low fiber / diverticular diet 11. low residue diet RECALL: Return in 3 year(s) for Colonoscopy, pending biopsy results. Pending Biopsy Alfonso Chan DR eSigned: Alfonso Chan DR 05/03/2020 12:50 PM cc: CPT CODES: ICD9 CODES: PATIENT NAME: Delfina Vnison MR#: [id number]
--- NOTE | 2020-05-03 13:04 | P.PN ---
Subjective Date of Service: 05/03/20 Chief Complaint: ABDOMEN PAIN AND DIARRHEA Subjective: New changes PATIENT WAS SEEN IN ER LAST NIGHT AND TODAY AT LUNCH. HPI NOTE DONE A DAY LATER [employer] CONNE[employer] FROM HOME WAS NOT WORKING LAST NIGHT. SHE IS STABLE, CONFUSED FROM GETTING MORPHINE. DIARRHEA NAD RECTAL PAIN CONTINUE. SOME WHEEZING TODAY. HER PAIN IS CONTROLLED BUT STAYS SLEEPY WITH PAIN MEDS. Review of Systems 10-point ROS is otherwise unremarkable Respiratory: Wheezing (NURSE CALLED ME. I ORDERED CXR NEBS AND STEROIDS.) Physical Examination - Vital Signs Temperature: 97.6 F Blood Pressure: 119/51 Pulse: 51 Respirations: 16 Pulse Ox (%): 95 - Physical Exam General: Oriented x3, Mild distress HEENT: Atraumatic, PERRLA, EOMI Neck: Supple, JVD not distended Respiratory: Diminished, Rhonchi/gurgles Cardiovascular: Regular rate/rhythm, Normal S1 S2 Gastrointestinal: Normal bowel sounds, No tenderness Musculoskeletal: No tenderness Integumentary: No rashes Neurological: Normal speech, Normal tone, Normal affect Lymphatics: No axilla or inguinal lymphadenopathy - Studies Microbiology Data (last 24 hrs): 04/30/20 05:40 Stool Fecal Leukocyte Stain - Final Medications List Reviewed: Yes Assessment And Plan - Current Problems (Diagnosis) (1) Rectal pain Current Visit: Yes Status: Acute Plan: FISSURE ADVISE ANUSOL CREAM AND SUPPOSITORY. CRC IN AM. DR. URRUTIA. (2) Chronic diarrhea Current Visit: No Status: Chronic Plan: C DIFF NEG. MAY HAVE COLITIS. NEEDS GI EVAL. WBC NEG. CONTINUE ABX CRC IN AM. DR MEDRANO DID NOT FIND ANYTHING BUT MILD COLITIS AND ANAL FISSURE. SHE HAS PAIN FROM IT. (3) Bronchitis Current Visit: Yes Status: Acute Plan: NEBS, STEROIDS AND CXR SHOWS NO CHF. STOP MORPHINE.
[2020-05-03] MEDS: ALBUTEROL 2.5 MG/3 ML NEB SOL NEB SCH ×2 (15:58→21:15)
[2020-05-03] MEDS ORDERED: ALBUTEROL 2.5 MG/3 ML NEB SOL ONE (23:13)
[2020-05-04] MEDS: METRONIDAZOLE 500mg IVPB 500 MG/100 ML BAG IV SCH ×3 (00:04→12:54)
[2020-05-04] MEDS: METHYLPREDNISOLONE 40 MG INJ IV SCH ×2 (00:04→05:43)
[2020-05-04] MEDS: ALBUTEROL 2.5 MG/3 ML NEB SOL NEB SCH ×3 (02:10→14:20)
[2020-05-04] MEDS: LEVOTHYROXINE SOD 0.1 MG TAB PO SCH (05:43)
[2020-05-04 05:53] LABS: Basophils % 0.4 % (0-1.3); Hematocrit 36.8 % (36.0-45.0); Lymphocytes % 9.2 % (15.3-44.8); MPV 8.5 fL (7.6-11.3); RBC Red Blood Cell Count 3.88 M/uL (3.86-4.86)
[2020-05-04 07:48] LABS: Platelet Estimate ADEQ
[2020-05-04 07:49] LABS: Blood Morphology Comment NOT SEEN (NOT SEEN)
[2020-05-04] MEDS ORDERED: CHOLESTYRAMINE/ASP 4 GM/PKT PO SCH (08:00)
[2020-05-04] MEDS: GABAPENTIN 300 MG CAP PO SCH ×2 (08:52→14:00)
[2020-05-04] MEDS: ENOXAPARIN 40 MG/0.4 ML SQ SCH (08:52)
[2020-05-04] MEDS: HYDROCORTISONE 2.5% RECT CR PR SCH ×2 (08:52→13:00)
[2020-05-04] MEDS: Levofloxacin500mg IV 500 MG/100 ML BAG IV SCH (08:52)
[2020-05-04] MEDS: VALSARTAN 80 MG TAB PO SCH (08:52)
[2020-05-04] MEDS: ALPRAZOLAM 0.5 MG TABLET PO SCH (08:53)
[2020-05-04] MEDS: HYDROCORTISONE ACETATE 25MG SUPP PR SCH (08:53)
[2020-05-04 09:50] VITALS: O2SAT 93
[2020-05-04 18:39] VITALS: BP 134/82; TEMP 98.3
[2020-05-05] MEDS ORDERED: METOPROLOL XL 25 MG TAB PO SCH (06:00)
[2020-05-09 21:39] LABS: Immunoglobulin A 313 mg/dL (70-320); Tissue Transglutaminase IgA Ab 1 U/mL (<4)
--- NOTE | 2020-06-06 18:27 | P.DS ---
Admission Date: 05/01/20 Discharge Date: 05/04/20 Disposition: DC HOME/HOME HEALTH CARE Discharge Condition: FAIR Reason for Admission: ABDOMEN PAIN AND DIARRHEA - Problems (1) Rectal pain Status: Acute (2) Chronic diarrhea Status: Chronic (3) Bronchitis Status: Acute Brief History of Present Illness: WAS HERE FEW DAYS AGO FOR SEVERE DIARRHEA AND DEHYDRATION. SHE IMPROVED ON IV HYDRATION AND INSISTED ON GOING HOME, I KEPT HER UNTIL PM AND SENT HER HOME. SHE HYDRATED BUT KEPT ON HAVING SEVERE PAIN IN RECTUM WITH EVEN URINATION SO SHE RETURNS TO ER. SHE HAS DIARRHEA FOR A MONTH. SHE HAS NOT SEEN GI DOCTOR YET THERE WERE NO APTS AVAILABLE FOR MONTHS. HER DOCTOR IS DR. TSANG. HER C DIFF TEST IS NEGATIVE. Hospital Course: MS. GORDON HAD SEVERE AND INTRACTABLE PAIN FROM ANAL FISSURE THAT TOOK A FEW DAYS TO IMPROVE WITH IV ANTIBIOTICS. SHE HAD COLONOSCOPY TO RULE OUT SEVERE COLITIS SHE ALSO HAD DIARREHA. SHE IS STABLE AT DISCHARGE ON ORAL ANTIBIOTICS AND FEELS A LOT BETTER. Vital Signs/Physical Exam: Temp Pulse Resp BP Pulse Ox 98.3 F 76 18 134/82 92 05/04/20 16:00 05/04/20 16:00 05/04/20 16:00 05/04/20 16:00 05/04/20 16:00 General: Oriented x3, Mild distress, Obese HEENT: Atraumatic, PERRLA, EOMI Neck: Supple, JVD not distended Respiratory: Clear to auscultation bilaterally, Normal air movement Cardiovascular: Regular rate/rhythm, Normal S1 S2 Gastrointestinal: Normal bowel sounds, No tenderness Musculoskeletal: No tenderness Integumentary: No rashes Neurological: Normal speech, Normal tone, Normal affect Lymphatics: No axilla or inguinal lymphadenopathy Laboratory Data at Discharge: WBC 11.0 K/uL (4.3-10.9) H 05/04/20 05:35 Hgb 11.7 g/dL (12.0-15.0) L 05/04/20 05:35 Hct 36.8 % (36.0-45.0) 05/04/20 05:35 Plt Count 230 K/uL (152-406) D 05/04/20 05:35 Sodium 145 mmol/L (136-145) 05/02/20 03:42 Potassium 4.5 mmol/L (3.5-5.1) 05/02/20 03:42 BUN 20 mg/dL (7-18) H 05/02/20 03:42 Creatinine 0.75 mg/dL (0.55-1.3) 05/02/20 03:42 Glucose 86 mg/dL (74-106) 05/02/20 03:42 Magnesium 2.0 mg/dL (1.8-2.4) D 05/02/20 03:42 Lipase 177 U/L (73-393) 05/01/20 11:30 Home Medications: Alprazolam [Xanax] 0.5 mg PO BID 04/29/20 Gabapentin 600 mg PO TID 04/29/20 Levothyroxine Sodium [Synthroid] 100 mcg PO DAILY 04/29/20 Tramadol HCl [Ultram] 100 mg PO BID PRN 04/29/20 Cholestyramine/Asp [Questran Light*] 4 gm PO DAILY WITH BREAKFAST #90 packet 05/04/20 Hydrocort Acetate Suppos [Anucort-Hc Suppository*] 25 mg [place] BID supp 05/04/20 Metoprolol Succinate 50 mg PO DAILY #90 tab.er.24h 05/04/20 New Medications: Metoprolol Succinate 50 mg PO DAILY #90 tab.er.24h Followup: Delon Mcallister MD [Primary Care Provider] -
== END 2020-05-04 17:30 | disposition home or self-care (01) | DRG 392 ==
LOC: ER 10:08 → INTOOBSV 14:11 → ERHOLD 14:11 → 2ND 23:30 → OBSVTOIN 05-04 08:57
PROVIDERS: ADMIT Internal Medicine; ATTEND Internal Medicine
PROC: 0DBN8ZX Excision of Sigmoid Colon, Via Natural or Artificial Opening Endoscopic, Diagnostic (ICD-10-PCS; principal; 2020-05-03 12:30)
DX: K52.9 Noninfective gastroenteritis and colitis, unspecified (principal); K62.89 Other specified diseases of anus and rectum; K60.2 Anal fissure, unspecified; K57.30 Diverticulosis of large intestine without perforation or abscess without bleeding; E86.0 Dehydration; I10 Essential (primary) hypertension; J20.9 Acute bronchitis, unspecified; E03.9 Hypothyroidism, unspecified; E66.9 Obesity, unspecified; Z68.39 Body mass index [BMI] 39.0-39.9, adult; Z79.890 Hormone replacement therapy; Z79.899 Other long term (current) drug therapy; Z79.01 Long term (current) use of anticoagulants; Z85.038 Personal history of other malignant neoplasm of large intestine; Z90.49 Acquired absence of other specified parts of digestive tract; Z90.710 Acquired absence of both cervix and uterus
CPT/HCPCS: 36415; 71045; 74177; 80048; 81003; 81015; 82274; 82784; 83516; 83690; 83735; 84439; 84443; 85025; 85049; 87040; 87045; 87046; 87077; 87086; 87088; 87177; 87186; 87205; 87209; 87324; 87449; 88305; 89055; 96360; 96361; 96372; 97116; 97161; 99283; G0378; J0744; J1170; J1650; J2270; J2370; J2550; J2704; J2920; J7030; J7120; J7799

== ENCOUNTER 2020-05-16 07:31 | Emergency (ER) | payer OTHER ==
--- OUTSIDE RECORDS SUMMARY | 2020-05-16 07:34 | XMS REPORT | Clinical Summary ---
:1945 Author Organization [facility] Address [address] [place] [address] Care Team Providers Name Role Phone Layla [...] gastroenteritis DO (Primary Dx) 04/23/2020 Travel after 05/16/2019 Surgical History Surgery Date Site/Laterality Comments HYSTERECTOMY [...] with No / Unsure 04/23/2020 2:53 PM POSTPARTUM RN someone who was confirmed or suspected to have Coronavirus / COVID-19? Last Filed Vital Signs Vital Sign Reading Time Taken Comments Blood Pressure 120/59 04/23/2020 4:06 PM POSTPARTUM RN Pulse 65 04/23/2020 4:06 PM POSTPARTUM RN Temperature 36.3 C (97.3 F) 04/23/2020 2:18 PM POSTPARTUM RN Respiratory Rate 18 04/23/2020 4:06 PM POSTPARTUM RN Oxygen Saturation 97% 04/23/2020 4:06 PM POSTPARTUM RN Inhaled Oxygen Concentration - - Weight 99.8 kg (220 lb) 04/23/2020 2:02 PM POSTPARTUM RN Height 161.3 cm (5' 3.5") 04/23/2020 2:02 PM POSTPARTUM RN Body Mass Index 38.36 04/23/2020 2:02 PM POSTPARTUM RN Plan of Treatment Health Maintenance Due Date Last Done Comments COVID-19 VACCINE (#1) 1961 SHINGLES VACCINES (#1) 1993 65+ PNEUMOCOCCAL VACCINE (1 of 1 - PPSV23) 02/15/2008 INFLUENZA VACCINE 12/31/2019 Procedures Procedure Name Priority Date/Time Associated Comments Diagnosis CT ABDOMEN PELVIS WO STAT 04/23/2020 3:42 Res ults for this CONTRAST PM POSTPARTUM RN procedure are i n the results section. URINALYSIS STAT 04/23/2020 3:02 Results for this PM POSTPARTUM RN procedure are i n the results section. ESTIMATED GFR STAT 04/23/2020 2:52 Results fo r this PM POSTPARTUM RN procedure are i n the results section. AMYLASE LEVEL STAT 04/23/2020 2:52 Results fo r this PM POSTPARTUM RN procedure are i n the results section. COMPREHENSIVE STAT 04/23/2020 2:52 Results fo r this METABOLIC PANEL PM POSTPARTUM RN procedure ar e in the results section. LACTIC ACID, I-STAT STAT 04/23/2020 2:52 Resu lts for this PM POSTPARTUM RN procedure are i n the results section. HC COMPLETE BLD COUNT STAT 04/23/2020 2:52 Re sults for this W/AUTO DIFF PM POSTPARTUM RN procedure are i n the results section. after 05/16/[address] Abdomen Pelvis Wo Contrast (04/23/2020 3:42 PM POSTPARTUM RN) Specimen Narrative Performed At EXAMINATION: CT ABDOMEN [...] and fusion. 5.Status post right hip replacement. [facility]-[id number] Procedure Note Interface, Radiology Results Incoming - 04/23/2020 3:51 PM POSTPARTUM RN EXAMINATION: CT ABDOMEN PELVIS WO CONTRAST CLINICAL [...] and fusion. 5.Status post right hip replacement. [facility]-[id number] Performing Organization Address City/State/ZIP Code Phon e Number [facility] [address] [place] [address] Urinalysis (04/23/2020 3:02 PM POSTPARTUM RN) Glucose, UA Negative Negative [facility] Bilirubin, UA Negative Negative [facility] Ketones, UA Negative Negative [facility] Specific gravity, 1.020 1.001 - 1.035 [facility] Blood, UA Moderate (A) Negative [facility] Comment: ODESSA Cupola Charger Name: trainee EMERGENCY CARE Device ID: [id number] CENTER pH, UA 5.0 5.0 - 8.5 [facility] Protein, UA Negative Negative [facility] Urobilinogen, UA <2.0 <2.0 [facility] Nitrite, UA Negative Negative [facility] Leukocyte Negative Negative [facility] esterase, UA [facility] Color, UA Yellow [facility] Appearance, UA Hazy [facility] Specimen Urine Performing Organization Address City/[facility]/ZIP Code Phon e Number DEPARTMENT OF PATHOLOGY AND [address] [place] [address] 7 [address] [place] [address] [facility] [place] Estimated GFR (04/23/2020 2:52 PM POSTPARTUM RN) Estimated GFR 71 mL/min/1.73 [facility] Comment: m2 ODESSA Catergory Units Interpretation [facility] G1 >=90 Normal or high CENTER [...] in 2014. Specimen Plasma Performing Organization Address City/[facility] Phon e Number DEPARTMENT OF PATHOLOGY AND [address] [place] [address] Lactic acid, I-Stat (04/23/2020 2:52 PM POSTPARTUM RN) Pathologist Sig nature Lactic acid, I-Stat 0.8 0.5 - 2.2 mmol/L [facility] Specimen Plasma Performing Organization Address City/[facility]/ZIP Code Phon e Number DEPARTMENT OF PATHOLOGY AND [address] [place] [address] 7 [address] [place] [address] EMERGENCY [facility] CBC with platelet and differential (04/23/2020 2:52 PM POSTPARTUM RN) Pathologist Sig nature WBC 8.31 4.50 - 11.00 k/uL [facility] RBC 4.50 4.20 - 5.50 m/uL [facility] HGB 14.5 12.0 - 16.0 g/dL [facility] HCT 43.3 37.0 - 47.0 % [facility] MCV 96.2 82.0 - 100.0 fL [facility] MCH 32.2 27.0 - 34.0 pg [facility] MCHC 33.5 31.0 - 37.0 g/dL [facility] RDW - SD 51.4 37.0 - 55.0 fL [facility] MPV 9.5 8.8 - 13.2 fL [facility] Platelet count 303 150 - 400 k/uL [facility] Neutrophils 69.2 (H) 39.0 - 69.0 % [facility] Lymphocytes 19.9 (L) 25.0 - 45.0 % [facility] Monocytes 10.2 (H) 0.0 - 10.0 % [facility] Eosinophils 0.6 0.0 - 5.0 % [facility] Basophils 0.1 0.0 - 1.0 % [facility] Specimen Plasma Performing Organization Address City/[facility]/ZIP Code Phon e Number DEPARTMENT OF PATHOLOGY AND [address] [place] [address] Amylase level (04/23/2020 2:52 PM POSTPARTUM RN) Pathologist Sig nature Amylase 29 14 - 97 U/L [facility] Specimen Plasma Performing Organization Address City/State/ZIP Code Phon e Number DEPARTMENT OF PATHOLOGY AND [address] [place] [address] Comprehensive metabolic panel (04/23/2020 2:52 PM POSTPARTUM RN) Pathologist Sig nature Sodium 134 128 - 145 mEq/L [facility] Potassium 4.9 3.6 - 5.1 mEq/L [facility] CO2 21 18 - 33 mEq/L [facility] Chloride 106 98 - 108 mEq/L [facility] Glucose 83 73 - 118 mg/dL [facility] Calcium 9.1 8.0 - 10.3 mg/dL [facility] BUN 17 7 - 22 mg/dL [facility] Creatinine 0.8 0.5 - 0.9 mg/dL [facility] Alkaline phosphatase 74 42 - 141 U/L [facility] ALT 22 10 - 47 U/L [facility] AST 28 11 - 38 U/L [facility] Total bilirubin 0.6 0.2 - 1.6 mg/dL [facility] Albumin 3.7 3.3 - 5.5 g/dL [facility] Protein 7.4 6.4 - 8.1 g/dL [facility] Anion gap 7@ANIO 7 - 15 mEq/L [facility] A/G ratio 1.0 0.7 - 3.8 [facility] Specimen Plasma Performing Organization Address City/State/ZIP Code Phon e Number DEPARTMENT OF PATHOLOGY AND [address] [place] [address] [address] [facility] [place] after 05/16/2019 Insurance Payer Benefit Plan / Subscriber ID Effective Dates Phone Addre ss Type Group MEDICARE MEDICARE PART A [id number] 2008-Present [place], [place] Medicare AND B Advance Directives For more information, please contact: [phone] Type Date Recorded Patient Hide And Skin Classer Explanati on Advance Directives, Living Will 02/24/2020 12:46 AM and Medical Power of Water Control Supervisor
--- OUTSIDE RECORDS SUMMARY | 2020-05-16 07:34 | XMS REPORT | Continuity of Care Document ---
:1945 Author Organization [facility] t Address [address] [place] [address] Care Team Providers Name Role Phone Layla Nickerson MD, A. Primary Care Physician Lilly Price DO Attending Clinician Payers Payer Name Policy Type Policy Effective Date Expiration Date Sour ce Number MEDICAREMEDICARE PART [id number] 2008 Luca Can AND 00:00:00 [facility] [id number]/06/2007[place] [facility] This patient has no known problems. Allergies, Adverse Reactions, Alerts Allergy Allergy Status Severity Reaction(s) Onset Inactive Treating Comm ents Source Name Type Date Date Clinician No Known DA Active U 2018-06 [facility] 06-27 [place] [facility] 00:[facility]: [facility] dic [facility] Codeine Propensi Active [facility]amm[facility] ty to 08-25 Methodi adverse 00:00: st reaction 00 s [facility] drug [facility] adverse 00:00: st reaction 00 s to drug Sulfa DA Active [facility] (Sulfona 08-24 [place] mide 00:00: Orthope Antibiot 00 dic ics) Hospita l celecoxi DA Active [facility] b 08-24 00:00: [facility]ope 00 dic Hospita l apple FA Active [facility] 08-24 00:00: Orthope 00 dic Hospita l ALL RAW DA Active [facility] FRUIT 08-24 [place] 00:00: Orthope 00 dic Hospita l Family History Family Member Diagnosis Comments Start Date Stop Date Source Natural brother Diabetes [facility] ethodist Natural mother Diabetes [facility] thodi Social History Social Habit Start Date Stop Date Quantity Comments Source Sex Assigned At [facility] ethodist Exposure to Not sure [facility] Metho dist SARS-CoV-2 (event) Tobacco use and 2020-04-23 2020-04-23 Never used [facility] ethodist exposure 00:00:00 00:00:00 Alcohol intake 2020-04-23 2020-04-23 Current [facility] thodist 00:00:00 00:00:00 non-drinker of alcohol (finding) Smoking Status Start Date Stop Date Source Never smoker [facility] Methodis t Medications Ordered Filled Start Stop [...] Pulse oximetry Body temperature 2020-04-23 14:18:00 36.28 Aarseli Nadiya Sheppard Body height 2020-04-23 14:02:00 161.3 cm Thang Sheppard Body weight 2020-04-23 14:02:00 99.791 kg Thang Sheppard BMI 2020-04-23 14:02:00 38.36 kg/m2 Thang Sheppard Procedures Procedure Date / Time Performed Performing Clinician [facility] e CT ABDOMEN PELVIS WO 2020-04-23 15:42:02 Azar Price CONTRAST URINALYSIS 2020-04-23 15:02:00 Azar Price HC COMPLETE BLD COUNT 2020-04-23 14:52:00 Azar [...] Scheduled 1993 SHINGLES VACCINES (#1) Caro dunham [facility] Test 00:00:00 [code = SHINGLES VACCINES (#1)] Future Scheduled 1959 COVID-19 VACCINE (#1) Luca gupta [facility] Test 00:00:00 [code = COVID-19 VACCINE (#1)] Encounters Start End Encounter Admission Attending Care Care Encounter Source Date/Time Date/Time Type Type Clinicians Facility Department ID 2020-04-23 2020-04-23 Emergency [facility], [facility] [id number] Cammal 00:00:00 00:00:00 AZAR [address] Results Test Description Test Time Test Comments Results Result [facility] e Comments CT Abdomen 2020-04-02 [facility], Cammal Pelvis Wo [address] Contrast 15:47:59 04/23/2020 3:51 PM CSTEXAMINATION: CT ABDOMEN PELVIS [...] lumbar laminectomy and fusion.5.Status post right hip replacement.[facility]-[id number] Comprehensive metabolic panel 2020-04-23 15:16:45 Test Item Value Reference Range Interpretation Comme nts Sodium (test code = 2951-2) 134 128- 145 mEq/L Potassium (test code = 2823-3) 4.9 3.6- 5.1 mEq/L CO2 (test code = 2027-9) 21 18- 33 mEq/L Chloride (test code = 2075-0) 106 98- 108 mEq/L Glucose (test code = 2345-7) 83 mg/dL 73-118 Calcium (test code = 03217-8) 9.1 mg/dL 8-10.3 BUN (test code = [...] g/dL 6.4-8.1 Anion gap (test code = 08119-3) 7@ANIO 7- 15 mEq/L A/G ratio (test code = 1759-0) 1.0 0.7-3.8 Thang MethodistAmylase [id number] 15:16:45 Test Item Value Reference Range Interpretation Comments Amylase (test code = 1798-8) 29 U/L 14-97 Desir MethodistCBC with platelet and [id number] 15:16:45 Test Item Value Reference Range Interpretation Comments WBC (test code = 54167-7) 8.31 4.50- 11.00 k/uL RBC (test code = 32959-1) 4.50 m/uL 4.2-5.5 HGB (test code = 718-7) 14.5 g/dL 12-16 HCT (test code = 4544-3) 43.3 % 37-47 MCV (test code = 787-2) 96.2 fL 82-100 MCH (test code = 785-6) 32.2 pg 27-34 MCHC (test code = 786-4) 33.5 g/dL 31-37 RDW - SD (test code = 10563-7) 51.4 fL 37-55 MPV (test code = 90442-2) 9.5 fL 8.8-13.2 Platelet count (test code = 303 150- 400 k/uL 50965-2) Neutrophils (test code = 79238-8) 69.2 % 39-69 H Lymphocytes (test code = 19857-3) 19.9 % 25-45 L Monocytes (test code = 16248-2) 10.2 % 0-10 H Eosinophils (test code = 34271-7) 0.6 % 0-5 Basophils (test code = 50125-6) 0.1 % 0-1 Lab Interpretation (test code = Abnormal 90645-7) Desir MethodistEstimated [id number] 15:16:45 Test Item Value Reference Range Interpretation Comments Estimated GFR (test 71 mL/min/1.73 m2 Caterg ory Units code = 5488) InterpretationG 1 >=90 Normal or highG2 60-89 Mildly jliqqrlsyM3t 45-59 Mildly to mode rately jrhkujepeT8j 30-44 Moderately to severely decreasedG4 15-29 Severely decre asedG5 <15 Kidn ey failureThe eGFR was calculated velma morales the Chronic Kidney Disease Epidemiology Co llaboration (CKD-EPI) equat ion. Interpretation is based on recommendations of the National Kidney Foundation-Kidn ey Disease Outcomes Qualit y Initiative (NKF-KDOQI) pub lished in 2014. Desir IagygdglyEdxydezuoj8933-60-88 15:09:35 Test Item Value Reference Range Interpretation Comments Glucose, UA (test code Negative Negative = 89278-1) Bilirubin, UA (test Negative Negative code = 5770-3) Ketones, UA (test code Negative Negative = 2514-8) Specific gravity, UA 1.020 1.001-1.035 (test code = 5811-5) Blood, UA (test code = Moderate Negative A Opera tor Name: 5794-3) traineeDevice I D: 154626 pH, UA (test code = 5.0 5.0-8.5 5803-2) Protein, UA (test code Negative Negative = 73133-4) Urobilinogen, UA (test <2.0 <2.0 code = 38065-9) Nitrite, UA (test code Negative Negative = 5802-4) Leukocyte esterase, UA Negative Negative (test code = 5799-2) Color, UA (test code = Yellow 5778-6) Appearance, UA (test Hazy code = 5767-9) Lab Interpretation Abnormal (test code = 85930-5) Desir MethodistLactic acid, [id number] 15:03:08 Test Item Value Reference Range Interpretation Comments Lactic acid, I-Stat (test code = 0.8 mmol/L 0.5-2.2 37514-6) Desir [facility]- XR FLUORO FOR SPINE [id number] 16:17:00 Patient Name: JULI GORDON Unit No: [id number] EXAMS: CPT CODE: [id number] XR FLUORO FOR SPINE INJ 93673 CERVICAL TRANSFORAMINAL INJECTION REFERRING PHYSICIAN:PREOPERATIVE DIAGNOSIS: Cervical [...] taken to the PACU in good condition. [facility] NAME: JULI GORDON [address] [facility] PHYS: Deejay Chaparro MD [place] [address] : 1945 AGE: 74 SEX: F LOC: JESUS PHONE #: [phone] EXAM DATE: 04/27/2019 STATUS: REG [facility] [place] #: [phone] RAD #: D/C DT PAGE 1 Signed Report (CONTINUED) Patient Name: JULI GORDON Unit No: [id number] EXAMS: CPT CODE: [id number] XR FLUORO FOR SPINE INJ 92096 <Continued> at 1617 Reported and signedby: Deejay Hutton M.D. CC: Technologist: Francesca Floyd(R) Transcribed D/ (1617) [email or web address] [facility] NAME: EVANJULI LIAN [address] [facility] PHYS: Deejay Chaparro MD [place] [address] : 1945 AGE: 74 SEX: F LOC: JESUS PHONE #: [phone] EXAM DATE: 06/27/2018 STATUS: REG [facility] [place] #: [phone] RAD #: D/C DT PAGE 2 Signed Report Patient Name: JULI GORDON Unit No: [id number] EXAMS: CPT CODE: [id number] XR FLUORO FOR SPINE INJ 40826 <Continued> Orig Print D/T: S: 04/27/2019 (1626) [place] [facility] NAME: JULI GORDON [address] [facility] PHYS: LETICIA - Deejay Hutton MD [place] [address] : 1945 AGE: 74 SEX: F LOC: Y.CHRIS PHONE #: [phone] EXAM DATE: 04/27/2019 STATUS: REG SDC FAX #:[phone] RAD #: D/C DT PAGE 3 Signed Report- XR L-SPINE W/BEND [id number] 13:07:00 Patient Name: JULI GORDON Unit No: [id number] EXAMS: CPT CODE: [id number] XR L-SPINE W/BEND VIEW 06371 COMPARISON: Concurrent MRI. IMAGES PROVIDED: 8 FINDINGS: [...] Lua M.D. Technologist: RT. Kvng(R) Transcribed D/ (7297) [email or web address] NAME: JULI GORDON [address] [facility] PHYS: Reid Malloy MD : 1945 AGE: 74 SEX: F [place] [address] LOC: Y.MRI PHONE #: [phone] EXAM DATE: 04/05/2019 STATUS: DEP CLI FAX #: [phone] RAD #: D/C DT PAGE 1 Signed Report Patient Name: JULI GORDON Unit No: [id number] EXAMS: CPT CODE: [id number] XR L-SPINE W/BEND VIEW 29270 <Continued> Orig Print D/T: S: 04/06/2019 (1310) [place] [facility] NAME: JULI GORDON [address] [facility] PHYS: Reid Malloy MD : 1945 AGE: 74 SEX: F [place], [place] [address] LOC: Y.MRI PHONE #: [phone] EXAM DATE:04/05/2019 STATUS: DEP CLI FAX #: [phone] RAD #: D/C DT PAGE 2 Signed Report- MRI L-SPINE W/O [id number] 14:43:00 Patient Name: JULI GORDON Unit No: [id number] EXAMS: CPT CODE: [id number] MRI L-SPINE W/O CONT 04320 TECHNIQUE: Multiplanar, multisequence MRI examination performed of [...] Reported and signed by: Ignacio Arshad M.D. [facility] NAME: JULI GORDON [address] [facility] PHYS: Reid Malloy MD : 1945 AGE: 74 SEX: F [place] [address] LOC: Y.MRI PHONE #: [phone] EXAM DATE: 04/05/2019 STATUS: REG CLI FAX #: [phone] RAD #: D/C DT PAGE 1 Signed Report (CONTINUED) Patient Name: JULI GORDON Unit No: [id number] EXAMS: CPT CODE: [id number] MRI L-SPINE W/O CONT 25946 <Continued> CC:Reid Lua M.D. Technologist: Mariel Pardo(R) Transcribed D/ (8311) [facility]yaBay[facility] NAME: JULI GORDON [address] [facility] PHYS: Reid Malloy MD : 1945 AGE: 74 SEX: F [place] [address] LOC: Y.MRI PHONE #: [phone] EXAM DATE: 04/05/2019 STATUS: REG CLI FAX #: [phone] RAD #: D/C DT PAGE 2 Signed Report Patient Name: JULI GORDON Unit No: [id number] EXAMS: CPT CODE: [id number] MRI L-SPINE W/O CONT 47319 <Continued> Orig Print D/T: S: 04/05/2019 (3827) [place] [facility] NAME: JULI GORDON [address] [facility] PHYS: Reid Malloy MD : 1945 AGE: 74 SEX: F [place], [place] [address]RPDG NO: [id number] LOC: Y.MRI PHONE #: [phone] EXAM DATE: 04/05/2019 STATUS: REG CLI FAX #: [phone] RAD #: D/C DT PAGE 3 Signed Report- MRI C-SPINE W/O [id number] 13:08:00 Patient Name: JULI GORDON Unit No: [id number] EXAMS: CPT CODE: [id number] MRI C-SPINE W/O CONT 15383 TECHNIQUE: Multiplanar, multisequence MRI examination performed of [...] Arshad M.D. CC: Vincent Sumner MDTechnologist: YANELIS JEAN RT(R) Transcribed D/ (7233) NadiyaSLJ [facility] NAME: JULI GORDON [address] [facility] PHYS: Vincent Garcia MD : 1945 AGE: 74 SEX: F [place], [place] [address]CALH NO: [id number] LOC: Y.MRI PHONE #: [phone] EXAM DATE: 03/22/2019 STATUS: DEP CLI FAX #: [phone] RAD #: D/C DT PAGE 1 Signed Report Patient Name: JULI GORDON Unit No: [id number] EXAMS: CPT CODE: [id number] MRI C-SPINE W/O CONT 43319 <Continued> Orig Print D/T: S: 03/23/2019 (3648) [facility] NAME: JULI GORDON [address] [place] [address] PHYS: Vincent Garcia MD : 1945 AGE: 74 SEX: F [place], [place] [address] LOC: Y.MRI PHONE #: [phone] EXAM DATE: 03/22/2019 STATUS: DEP CLI FAX #: [phone] RAD #: D/C DT PAGE 2 Signed Report - CT UP EXTREM W/O CONT [id number] 08:31:00 Patient Name: JULI GORDON Unit No: [id number] EXAMS: CPT CODE: [id number] CT UP EXTREM W/[place] [address] CT OF THE RIGHT SHOULDER WITH 3-D, SAGITTAL AND CORONAL RECONSTRUCTIONS DIAGNOSIS: There is a medial displaced anterior inferior glenoid fracture. COMMENT: COMPARISON: No prior exams available. Scans were performed with thin sections and reconstructions were obtained. CT radiation dose optimization isachieved for this examination by the use of a CT protocol in accordance with ACR practice standards and adherence to head of loss prevention's recommendations. 3-D reconstructions were performed on a separate workstation. Glenoid fracture is present with displacement as noted. No other fractures are seen. There is no evidence for rotator cuff atrophy. Reconstructions help confirm these impressions. at 0831 Reported and signed by: Reid Holman MD CC: Vincent Sumner MD Technologist: Monica Ross, RT(R) CTDI: DLP: Trnscrpt: 02/02/2019 (0831) AurelioL [facility] NAME: JULI GORDON [address] [facility] PHYS: Vincent Garcia MD : 1945 AGE: 73 SEX: F [place] [address] LOC: Y.RAD PHONE #: [phone] EXAM DATE: 02/01/2019 STATUS: DEP CLI FAX #: [phone] RAD #: D/C DT PAGE 1 Signed Report Patient Name: JULI GORDON Unit No: [id number] EXAMS: CPT CODE: [id number] CT UP EXTREM W/[place] [address] <Continued> Orig Print D/T: S: 02/02/2019 (0834)[facility] NAME: JULI GORDON [address] [facility] PHYS: Vincent Garcia MD : 1945GE: 73 SEX: F [place] [address] LOC: Y.RAD CARMEN NE #: [phone] EXAM DATE: 02/01/2019 STATUS: DEP CLI FAX #: [phone] RAD #: D/C DT PAGE 2 Signed Report
[2020-05-16] MEDS ORDERED: PHENYLEPHRINE 0.5% NOSE 15ML NAS ONE (08:09)
[2020-05-16 08:17] LABS: Absolute Lymphocytes (CBC) 2.4 K/uL (0.7-4.9); Basophils % 1.2 % (0-1.3); Hematocrit 41.8 % (36.0-45.0); Lymphocytes % 20.6 % (15.3-44.8); MPV 7.8 fL (7.6-11.3); Protime INR 1.51; RBC Red Blood Cell Count 4.44 M/uL (3.86-4.86)
[2020-05-16 08:28] LABS: Potassium 4.2 mmol/L (3.5-5.1)
--- NOTE | 2020-05-16 08:33 | EDPHYS ---
Physician Documentation [facility] Name: Delfina Vinson Age: 75 yrs Sex: Female : 1945 Arrival Date: 05/16/2020 Time: 07:32 Bed 20 Private MD: Delon Mcallister V ED Physician Cody Hubbard HPI: 05/16 08:28 This 75 yrs old Female presents to ER via Wheelchair with complaints of Nose ken Bleed. 08:28 The patient presents with a nose bleed, that is apparently anterior. Onset: The ken symptoms/episode began/occurred just prior to arrival. Modifying factors: The symptoms are alleviated by nothing. the symptoms are aggravated by nothing. Associated signs and symptoms: The patient has no apparent associated signs or symptoms, Loss of consciousness: the patient experienced no loss of consciousness. Severity of symptoms: At their worst the symptoms were. The patient has not experienced similar symptoms in the past. Historical: - Home Meds: 07:49 gabapentin 300 mg Oral cap 2 caps 3 times per day [Active]; Synthroid 100 mcg Oral tab zb 1 tab once daily [Active]; tramadol 50 mg Oral tab 2 tabs twice a day [Active]; olmesartan 20 mg Oral once daily [Active]; Xanax 0.5 mg Oral tab twice a day [Active]; - PMHx: 07:49 colon cancer; Hypertension; Hypothyroidism; shingles; zb - PSHx: 07:49 Tonsillectomy; Hysterectomy; Appendectomy; Cholecystectomy; Colon resection; Back; zb Right hip; Right knee; - Immunization history:: Adult Immunizations up to date. - Social history:: Smoking status: Patient denies any tobacco usage or history of. ROS: 08:29 Constitutional: Negative for fever, chills, and weight loss, Eyes: Negative for injury, ken pain, redness, and discharge, Neck: Negative for injury, pain, and swelling, Cardiovascular: Negative for chest pain, palpitations, and edema, Respiratory: Negative for shortness of breath, cough, wheezing, and pleuritic chest pain, Abdomen/GI: Negative for abdominal pain, nausea, vomiting, diarrhea, and constipation, Back: Negative for injury and pain, : Negative for injury, bleeding, discharge, and swelling, MS/Extremity: Negative for injury and deformity, Skin: Negative for injury, rash, and discoloration, Neuro: Negative for headache, weakness, numbness, tingling, and seizure, Psych: Negative for depression, anxiety, suicide ideation, homicidal ideation, and hallucinations, Allergy/Immunology: Negative for hives, rash, and allergies, Endocrine: Negative for neck swelling, polydipsia, polyuria, polyphagia, and marked weight changes, Hematologic/Lymphatic: Negative for swollen nodes, abnormal bleeding, and unusual bruising. 08:29 ENT: Positive for nose bleed. Exam: 08:29 Constitutional: This is a well developed, well nourished patient who is awake, alert, ken and in no acute distress. Head/Face: Normocephalic, atraumatic. Eyes: Pupils equal round and reactive to light, extra-ocular motions intact. Lids and lashes normal. Conjunctiva and sclera are non-icteric and not injected. Cornea within normal limits. Periorbital areas with no swelling, redness, or edema. Neck: Trachea midline, no thyromegaly or masses palpated, and no cervical lymphadenopathy. Supple, full range of motion without nuchal rigidity, or vertebral point tenderness. No Meningismus. Chest/axilla: Normal chest wall appearance and motion. Nontender with no deformity. No lesions are appreciated. Cardiovascular: Regular rate and rhythm with a normal S1 and S2. No gallops, murmurs, or rubs. Normal PMI, no JVD. No pulse deficits. Respiratory: Lungs have equal breath sounds bilaterally, clear to auscultation and percussion. No rales, rhonchi or wheezes noted. No increased work of breathing, no retractions or nasal flaring. Abdomen/GI: Soft, non-tender, with normal bowel sounds. No distension or tympany. No guarding or rebound. No evidence of tenderness throughout. Back: No spinal tenderness. No costovertebral tenderness. Full range of motion. Skin: Warm, dry with normal turgor. Normal color with no rashes, no lesions, and no evidence of cellulitis. MS/ Extremity: Pulses equal, no cyanosis. Neurovascular intact. Full, normal range of motion. Neuro: Awake and alert, GCS 15, oriented to person, place, time, and situation. Cranial nerves II-XII grossly intact. Motor strength 5/5 in all extremities. Sensory grossly intact. Cerebellar exam normal. Normal gait. Psych: Awake, alert, with orientation to person, place and time. Behavior, mood, and affect are within normal limits. 08:29 ENT: Nose: Nasal septum: no septal hematoma appreciated, Nasal mucosa: edematous, erythematous, bleeding, is seen from the left nare, and is moderate, and is pulsatile, clotted blood, in left nare. Vital Signs: 07:41 BP 119 / 91; Pulse 95; Resp 18; Temp 97.8; Pulse Ox 97% ; Weight 96.62 kg; Height 5 ft. zb 3 in. (160.02 cm); Pain 0/10; 09:03 BP 112 / 76; Pulse 58; Resp 16; Pulse Ox 95% on R/A; zb 07:41 Body Mass Index 37.73 (96.62 kg, 160.02 cm) zb Procedures: 08:32 Epistaxis treatment: A moderate amount of bleeding noted from left nare. Treated using [facility] cauterization, silver nitrate, direct pressure, anterior packing, Bleeding stopped. MDM: 07:40 Patient medically screened. [facility] 08:29 Differential diagnosis: spontaneous epistaxis. Data reviewed: vital signs, nurses [facility] notes, lab test result(s), CBC, electrolytes. Data interpreted: playground monitor: rate is 95 beats/min, rhythm is regular. Counseling: I had a detailed discussion with the patient and/or guardian regarding: the historical points, exam findings, and any diagnostic results supporting the discharge/admit diagnosis, lab results, the need for outpatient follow up, for definitive care, an ENT specialist, an nurse informaticist. 05/16 07:58 Order name: CBC with Diff; Complete Time: 08:27 aa 05/16 07:58 Order name: Basic Metabolic Panel; Complete Time: 08:28 aa 05/16 07:58 Order name: PT-INR; Complete Time: 08:27 aa 05/16 07:58 Order name: Ptt, Activated; Complete Time: 08:27 aa 05/16 08:28 Order name: Dressing - Wound; Complete Time: 08:29 [facility] 05/16 08:28 Order name: Gloves, Sterile; Complete Time: 08:29 [facility] 05/16 08:28 Order name: Setup Suture Tray; Complete Time: 08:29 [facility] Administered Medications: 08:06 Drug: Christo-Synephrine [place] 0.5 % 2 sprays Route: Intranasal; Site: both nares; jd3 09:04 Follow up: Response: No adverse reaction zb 08:06 Drug: Silver Nitrate Applicators 1 application Route: Topical; Site: affected area; jd3 09:04 Follow up: Response: No adverse reaction zb 08:56 Drug: Rocephin 1 grams Route: IV; Rate: per protocol; Site: right forearm; zb 09:00 Follow up: Response: No adverse reaction; IV Status: Completed infusion; IV Intake: 20mlzb Disposition: 05/16/20 08:32 Discharged to Home. Impression: Epistaxis. - Condition is Fair. - Discharge Instructions: Nosebleed, Adult, Nosebleed, [id number]. - Prescriptions for Keflex 500 mg Oral Capsule - take 1 capsule by ORAL route every 6 hours for 7 days; 28 capsule. - Medication Reconciliation Form, Thank You Letter, Antibiotic Education, Prescription Opioid Use form. - Follow up: Delon Mcallister MD; When: 2 - 3 days; Reason: Recheck today's complaints, Continuance of care, Re-evaluation by your physician. Follow up: Emilie Amaya MD; When: 1 - 2 days; Reason: Recheck today's complaints, Re-evaluation by your physician. - Problem is new. - Symptoms have improved. Signatures: Dispatcher [employer] EDTX Cody Hubbard MD MD cha Davies, Jonathon, RN RN jd3 Brown, Zipporah, RN RN zgarry Corrections: (The following items were deleted from the chart) 09:05 08:32 05/16/2020 08:32 Discharged to Home. Impression: Epistaxis. Condition is Fair. zb Forms are Medication Reconciliation Form, Thank You Letter, Antibiotic Education, Prescription Opioid Use. Follow up: Delon Mcallister; When: 2 - 3 days; Reason: Recheck today's complaints, Continuance of care, Re-evaluation by your physician. Follow up: Emilie Amaya; When: 1 - 2 days; Reason: Recheck today's complaints, Re-evaluation by your physician. Problem is new. Symptoms have improved. ken
--- NOTE | 2020-05-16 08:33 | ER ---
Nurse's Notes [facility] Name: Delfina Vinson Age: 75 yrs Sex: Female : 1945 Arrival Date: 05/16/2020 Time: 07:32 Bed 20 Private MD: Delon Mcallister V Diagnosis: Epistaxis Presentation: 05/16 07:41 Chief complaint: Patient states: woke up this morning around 5 am nose started zb bleeding. blood hasn't stopped. 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 Coronavirus screen: At this time, the client does not indicate any symptoms associated with coronavirus-19. Ebola Screen: No symptoms or risks identified at this time. Initial Sepsis Screen: Does the patient meet any 2 criteria? No. Patient's initial sepsis screen is negative. Does the patient have a suspected source of infection? No. Patient's initial sepsis screen is negative. Risk Assessment: Do you want to hurt yourself or someone else? Patient reports no desire to harm self or others. Onset of symptoms was May 16, 2020. 07:41 Method Of Arrival: Wheelchair zb 07:41 Acuity: BILL 3 zb Historical: - Home Meds: 07:49 gabapentin 300 mg Oral cap 2 caps 3 times per day [Active]; Synthroid 100 mcg Oral tab zb 1 tab once daily [Active]; tramadol 50 mg Oral tab 2 tabs twice a day [Active]; olmesartan 20 mg Oral once daily [Active]; Xanax 0.5 mg Oral tab twice a day [Active]; - PMHx: 07:49 colon cancer; Hypertension; Hypothyroidism; shingles; zb - PSHx: 07:49 Tonsillectomy; Hysterectomy; Appendectomy; Cholecystectomy; Colon resection; Back; zb Right hip; Right knee; - Immunization history:: Adult Immunizations up to date. - Social history:: Smoking status: Patient denies any tobacco usage or history of. Screenin:58 Abuse screen: Denies threats or abuse. Denies injuries from another. Nutritional zb screening: No deficits noted. Tuberculosis screening: No symptoms or risk factors identified. Fall Risk None identified. Assessment: 07:30 General: Appears in no apparent distress. uncomfortable, Behavior is cooperative, zb appropriate for age, anxious. Pain: Denies pain. Neuro: Level of Consciousness is awake, alert, obeys commands, Oriented to person, place, time, situation. Cardiovascular: Patient's skin is warm and dry. Respiratory: Airway is patent Respiratory effort is even, unlabored, Respiratory pattern is regular, symmetrical. GI: No signs and/or symptoms were reported involving the gastrointestinal system. : No signs and/or symptoms were reported regarding the genitourinary system. EENT: Nares with bleeding noted on left. Derm: Skin is intact, is fragile, Skin is normal. Musculoskeletal: Circulation, motion, and sensation intact. Range of motion: intact in all extremities. 08:30 Reassessment: Patient appears in no apparent distress at this time. Patient and/or zb family updated on plan of care and expected duration. Pain level reassessed. Patient is alert, oriented x 3, equal unlabored respirations, skin warm/dry/pink. ECP at bedside discussed poc. Vital Signs: 07:41 BP 119 / 91; Pulse 95; Resp 18; Temp 97.8; Pulse Ox 97% ; Weight 96.62 kg; Height 5 ft. zb 3 in. (160.02 cm); Pain 0/10; 09:03 BP 112 / 76; Pulse 58; Resp 16; Pulse Ox 95% on R/A; zb 07:41 Body Mass Index 37.73 (96.62 kg, 160.02 cm) zb ED Course: 07:32 Patient arrived in ED. as 07:32 Delon Mcallister MD is Private Physician. as 07:40 Cody Hubbard MD is Attending Physician. ken 07:41 Katie Ross RN is Primary Nurse. zb 07:48 Triage completed. zb 08:00 Inserted saline lock: 22 gauge in right forearm, using aseptic technique. Blood jd3 collected. 08:07 Arm band placed on. jd3 08:20 nasal packing. zb 08:31 Delon Mcallister MD is Referral Physician. ken 08:31 Emilie Amaya MD is Referral Physician. ken 08:59 Patient has correct armband on for positive identification. Bed in low position. Call zb light in reach. Side rails up X 1. Adult w/ patient. 09:03 IV discontinued, intact, bleeding controlled, No redness/swelling at site. Pressure zb dressing applied. Administered Medications: 08:06 Drug: Christo-Synephrine [place] 0.5 % 2 sprays Route: Intranasal; Site: both nares; jd3 09:04 Follow up: Response: No adverse reaction zb 08:06 Drug: Silver Nitrate Applicators 1 application Route: Topical; Site: affected area; jd3 09:04 Follow up: Response: No adverse reaction zb 08:56 Drug: Rocephin 1 grams Route: IV; Rate: per protocol; Site: right forearm; zb 09:00 Follow up: Response: No adverse reaction; IV Status: Completed infusion; IV Intake: 20mlzb Intake: 09:00 IV: 20ml; Total: 20ml. zb Outcome: 08:32 Discharge ordered by . ken 09:03 Discharged to home via wheelchair, with family. zb 09:03 Condition: stable 09:03 Discharge instructions given to patient, family, Instructed on discharge instructions, follow up and referral plans. medication usage, Demonstrated understanding of instructions, follow-up care, medications. 09:05 Patient left the ED. zb Signatures: Cody Hubbard MD MD cha Martinez, Amelia as Davies, Jonathon, RN RN Katie Aragon RN RN zgarry
[2020-05-16] MEDS ORDERED: CEFTRIAXONE/SWI 1gm 1 GM/10 ML SYR ONE (08:57)
[2020-05-18 01:23] VITALS: TEMP 97.8
[2020-05-18 01:30] VITALS: BP 112/76; O2SAT 95
== END 2020-05-16 09:05 | disposition home or self-care (01) ==
LOC: ER 07:31
PROC: 093K7ZZ Control Bleeding in Nasal Mucosa and Soft Tissue, Via Natural or Artificial Opening (ICD-10-PCS; principal; 2020-05-16)
DX: R04.0 Epistaxis (principal); I10 Essential (primary) hypertension; E03.9 Hypothyroidism, unspecified; Z85.038 Personal history of other malignant neoplasm of large intestine
CPT/HCPCS: 30901 ×2; 85025; 80048; 36415; 85610; 85730; 96374; 99283; J0696

== ENCOUNTER 2021-05-15 18:31 | Emergency (ER) | payer OTHER ==
--- OUTSIDE RECORDS SUMMARY | 2021-05-15 18:35 | XMS REPORT | Continuity of Care Document ---
:[address] [facility] t Address [address] [place] [address] Care Team Providers Name Role Phone Enrike BLAIR Attending Clinician Unavailable Enrike Blair MD Attending Clinician Doctor Unassigned, Name Attending Clinician Unavailable Only, Test Attending Clinician Unavailable AMADOR Attending Clinician Unavailable Enrike BLAIR Admitting Clinician Unavailable Enrike Blair MD Admitting Clinician Payers Payer Name Policy Type Policy Number Effective Date Expiration Date Sherman leiva MEDICARE PART A [id number] 2008 \T\ B 00:00:00 Problems This patient has no known problems. Allergies, Adverse Reactions, Alerts Allergy Allergy Status Severity Reaction(s) Onset Inactive Treating Comm ents Source Name Type Date Date Clinician No Known DA Active U 2018-06 [facility] 06-27 [place] All[facility]ie 00:00: [facility] Sulfa DA Active SV [facility] (Sulfona 08-24 [place] mide 00:00: Orthope Antibiot 00 dic ics) Hospita l celecoxi DA Active [place] [facility] b 08-24 00:00: Orthope 00 dic [facility] apple FA Active [facility] 08-24 00:00: Orthope 00 dic [facility]osp[facility] ALL RAW DA Active [facility] FRUIT 08-24 00:00: Orthope 00 dic Hospita [facility] NO KNOWN Drug Active [facility] ALLERG Class ity of [facility] Social History Social Habit Start Date Stop Date Quantity Comments Source Exposure to Not sure [facility] SARS-CoV-2 (event) Medica l Branch Tobacco use and 2021-01-01 2021-01-01 Never used [facility] exposure 00:00:00 00:00:00 Medical Branch Sex [birth year] [facility] 00:00:00 00:00:00 Medical Branch Smoking Status Start Date Stop Date Source Never smoker [facility] Medications Ordered Filled Start Stop Current Ordering Indication Dosage Frequency Signature Comments Components Source Medication Medication Date Date Medication? Clinician (SIG) Name Name Cetirizine Yes Take by Uni vers 10 mg 8-04 mouth. ity of capsule 19:28: [address] ALPRAZolam Yes Xanax 0.5 Un sanjuanita (XANAX) 0.5 8-04 mg tablet ity of mg tablet 19:28: Take 1 [place] 16 tablet 3 Medical times a Branch day by oral route. levothyroxi Yes Synthroid U nivers ne 8-04 100 mcg ity of (SYNTHROID) 19:28: [place] 100 [place] 16 Take 1 Medical tablet tablet Branch every day by oral route. levothyroxi Yes 112ug Take 112 U nivers ne 112 mcg 8-04 mcg by ity of tablet 19:28: mouth [place] 16 every Medical morning. Branch losartan 50 Yes losartan Un sanjuanita mg tablet 8-04 50 mg ity of 19:28: tablet [place] 16 Take 1 Medical tablet Branch every day by oral route. Cetirizine Yes Take by Uni vers 10 mg 8-04 mouth. ity of capsule 19:28: [address] ALPRAZolam Yes Xanax 0.5 Un sanjuanita (XANAX) 0.5 8-04 mg tablet ity of mg tablet 19:28: Take 1 [place] 16 tablet 3 Medical times a Branch day by oral route. levothyroxi Yes Synthroid U nivers ne 8-04 100 mcg ity of (SYNTHROID) 19:28: [place] 100 [place] 16 Take 1 Medical tablet tablet Branch every day by oral route. levothyroxi Yes 112ug Take 112 U nivers ne 112 mcg 8-04 mcg by ity of tablet 19:28: mouth [place] 16 every Medical morning. Branch losartan 50 0 Yes losartan Un sanjuanita mg tablet 8-04 50 mg ity of 19:28: tablet [place] 16 Take 1 Medical tablet Branch every day by oral route. Cetirizine Yes Take by Uni vers 10 mg 8-04 mouth. ity of capsule 19:28: [place] 16 Medical Branch ALPRAZolam Yes Xanax 0.5 Un sanjuanita (XANAX) 0.5 8-04 mg tablet ity of mg tablet 19:28: Take 1 [place] 16 tablet 3 Medical times a Branch day by oral route. levothyroxi Yes Synthroid U nivers ne 8-04 100 mcg ity of (SYNTHROID) 19:28: [place] 100 mcg 16 Take 1 Medical tablet tablet Branch every day by oral route. levothyroxi Yes 112ug Take 112 U nivers ne 112 mcg 8-04 mcg by ity of tablet 19:28: mouth [place] 16 every Medical morning. Branch losartan 50 0 Yes losartan Un sanjuanita mg tablet 8-04 50 mg ity of 19:28: tablet [place] 16 Take 1 Medical tablet Branch every day by oral route. lactated 2020-0 Yes 1000mL at 100 Unive rs ringers IV 8-04 mL/hr, ity of infusion 19:15: 1,000 mL, [place] 1,000 mL 00 IV Medical Infusion, Branch CONTINUOUS , Starting Thu01/02/21 at 1415, Until Discontinu ed, Routine, PACU lactated 2020-0 2020- No 1000mL at 100 Univ ers ringers IV 8-04 08-04 mL/hr, ity of infusion 19:15: 21:28 1,000 mL, Ronnie as 1,000 mL 00 :17 IV Medical Infusion, Branch CONTINUOUS , Starting Thu01/02/21 at 1415, Until Thu01/02/21 at 1628, Routine, PACU ondansetron 2020-0 Yes 4mg 4 mg, Slow Univers (ZOFRAN 8-04 IV Push, ity of (PF)) 19:02: PRN, 1 [place] injection 4 28 dose, Medical mg Starting Branch Thu01/02/21 at 1402, Until Discontinu ed, Routine, Nausea and Vomiting (N/V), PACU ondansetron 2020- No 4mg 4 mg, Slow Univers (ZOFRAN 01-02 08-04 IV Push, ity of (PF)) 19:02: 21:28 PRN, 1 [place] injection 4 28 :17 dose, Medical mg Starting Branch Thu01/02/21 at 1402, Until Thu01/02/21 at 1628, Routine, Nausea and Vomiting (N/V), PACU simethicone Yes PRN, Univer s (GAS RELIEF 04 Starting ity of (SIMETHICON 18:15: 01/02/21 [place] E)) 40 00 at 1315, Medical mg/0.6 mL Until Branch drops Discontinu ed, Routine, Intra-op lactated 2020- No 1000mL at 42 Unive rs ringers IV 8 08-04 mL/hr, ity of infusion 18:15: 18:06 1,000 mL, [place] 1,000 mL 00 :00 IV Medical Infusion, Branch ONCE, 1 dose, 01/02/21 at 1315, Routine, Endo Pre-op simethicone 2020- No PRN, Unive rs (GAS RELIEF 01-0204 Starting ity of (SIMETHICON 18:15: 21:28 01/02/21 [place] E)) 40 00 :17 at 1315, Medical mg/0.6 mL Until Wed Branc h drops 01/02/21 at 1628, Routine, Intra-op lactated 2020- No 1000mL at 42 Unive rs ringers IV 8 08-04 mL/hr, ity of infusion 18:15: 18:06 1,000 mL, [place] 1,000 mL 00 :00 IV Medical Infusion, Branch ONCE, 1 dose, Thu01/02/21 at 1315, Routine, Endo Pre-op levothyroxi Yes Synthroid U nivers ne 8 100 mcg ity of (SYNTHROID) 20:44: tablet [place] 100 mcg 31 Take 1 Medical tablet tablet Branch every day by oral route. levothyroxi Yes 112ug Take 112 U nivers ne 112 mcg 8-03 mcg by ity of tablet 20:44: mouth every Medical morning. Branch losartan 50 Yes losartan Un sanjuanita mg tablet 8-03 50 mg ity of 20:44: tablet Take 1 Medical tablet Branch every day by oral route. Cetirizine Yes Take by Uni vers 10 mg 8-03 mouth. ity of capsule 20:44: [facility] ALPRAZolam Yes Xanax 0.5 Un sanjuanita (XANAX) 0.5 8-03 mg tablet ity of mg tablet 20:44: Take 1 tablet 3 Medical times a Branch day by oral route. Immunizations Ordered Filled Immunization Date Status Comments [facility] Immunization Name Name SARS-COV-2 COVID-19 2020-08-13 Completed Unive rsity of PFIZER VACCINE 00:00:00 [facility] SARS-COV-2 COVID-19 2020-08-13 Completed Unive rsity of PFIZER VACCINE 00:00:00 [facility] SARS-COV-2 COVID-19 2020-08-13 Completed Unive rsity of PFIZER VACCINE 00:00:00 [facility] SARS-COV-2 COVID-19 2020-08-13 Completed Unive rsity of PFIZER VACCINE 00:00:00 [facility] SARS-COV-2 COVID-19 2020-07-23 Completed Unive rsity of PFIZER VACCINE 00:00:00 [facility] SARS-COV-2 COVID-19 2020-07-23 Completed Unive rsity of PFIZER VACCINE 00:00:00 [facility] SARS-COV-2 COVID-19 2020-07-23 Completed Unive rsity of PFIZER VACCINE 00:00:00 [facility] SARS-COV-2 COVID-19 2020-07-23 Completed Unive rsity of PFIZER VACCINE 00:00:00 [facility] Vital Signs Vital Name Observation Time Observation Value Comments Source Systolic blood 2021-01-02 18:55:00 157 mm[Hg] Univer sity of pressure [facility] [place] [facility] Diastolic blood 2021-01-02 18:55:00 58 mm[Hg] Unive rsity of pressure [facility] [place] [facility] Heart rate 2021-01-02 18:55:00 59 /min Universi ty [facility] Respiratory rate 2021-01-02 18:55:00 18 /min [facility] ersity [facility] Oxygen saturation in 2021-01-02 18:55:00 96 /min University of Arterial blood by [facility] Pulse oximetry Branch Body temperature 2021-01-02 18:23:00 36.56 Araseli [facility] Body height 2021-01-01 20:30:00 160 cm Universi ty [facility] Body weight 2021-01-01 20:30:00 99.791 kg Universi ty [facility] BMI 2021-01-01 20:30:00 38.97 kg/m2 Universi ty [facility] Systolic blood 2021-01-02 18:55:00 157 mm[Hg] Univer sity of pressure [facility] [place] [facility] Diastolic blood 2021-01-02 18:55:00 58 mm[Hg] Unive rsity of pressure [facility] [place] [facility] Heart rate 2021-01-02 18:55:00 59 /min Universi [facility] Respiratory rate 2021-01-02 18:55:00 18 /min [facility] Oxygen saturation in 2021-01-02 18:55:00 96 /min [place] of Arterial blood by [facility] Pulse oximetry Branch Body temperature 2021-01-02 18:23:00 36.56 Araseli [facility] Body height 2021-01-01 20:30:00 160 cm Universi [facility] Body weight 2021-01-01 20:30:[address] [facility] BMI 2021-01-01 20:30:00 38.97 kg/m2 [facility] Procedures Procedure Date / Time Performing Source Performed Clinician EGD (ENDO) 2021-01-02 Delon Mcallister [place] of 18:08:46 [facility] [place] [facility] EGD (ENDO) 2021-01-02 [facility] 18:08:46 [facility] [place] [facility] ESOPHAGOGASTRODUODENOSCOPY 2021-01-02 Aissatou Blair rsity of 17:58:00 Andrzej Calvert [facility] [place] [facility] DAY SURGERY - ADC 2021-01-02 [facility] of 05:01:00 Unassigned, No [place] Medical Name Branch CONSENT/REFUSAL FOR DIAGNOSIS AND 2021-01-01 Doctor [facility] 21:27:05 Unassigned, No [place] Medical Name Branch CONSENT/REFUSAL FOR DIAGNOSIS AND 2021-01-01 [facility] 21:27:05 Unassigned, No [place] Medical Name [facility] ASSIGNMENT OF BENEFITS 2021-01-01 Doctor Universit y of 21:26:24 Unassigned, No [place] [facility] ASSIGNMENT OF BENEFITS 2021-01-01 Doctor Universit y of 21:26:24 Unassigned, No [place] [facility] NOTICE OF BILLING PRACTICES FOR 2021-01-01 Doctor University of MEDICARE PATIENTS 21:26:05 Unassigned, No [place] [facility] NOTICE OF BILLING PRACTICES FOR 2021-01-01 Doctor University of MEDICARE PATIENTS 21:26:05 Unassigned, No [place] [facility] PATIENT FINANCIAL POLICY 2021-01-01 Doctor Un iversity of 21:25:43 Unassigned, No [place] [facility] Branch [facility] PATIENT FINANCIAL POLICY 2021-01-01 Doctor Un iversity of 21:25:43 Unassigned, No [place] [facility] NO SHOW OR MISSED APPOINTMENT 2021-01-01 Doctor Un iversity of POLICY ACKNOWLEDGEMENT 21:25:21 Unassigned, No [place] Med ical Name Branch NO SHOW OR MISSED APPOINTMENT 2021-01-01 Doctor Un iversity of POLICY ACKNOWLEDGEMENT 21:25:21 Unassigned, No [place] Med ical Name Branch NOTICE OF PRIVACY PRACTICES 2021-01-01 Doctor Univ ersity of 21:24:53 Unassigned, No [place] Medical Name [facility] NOTICE OF PRIVACY PRACTICES 2021-01-01 Doctor Univ ersity of 21:24:53 Unassigned, No [place] [facility] CONSENT/REFUSAL FOR DIAGNOSIS AND 2021-01-01 Doctor [facility] 21:23:03 Unassigned, No [place] [facility] CONSENT/REFUSAL FOR DIAGNOSIS AND 2021-01-01 Doctor [facility] 21:23:03 Unassigned, No [place] [facility] Name [facility] ASSIGNMENT OF BENEFITS 2021-01-01 Doctor Universit y of 21:22:39 Unassigned, No [place] [facility] ASSIGNMENT OF BENEFITS 2021-01-01 Doctor Universit y of 21:22:39 Unassigned, No [place] [facility] Name Branch Encounters Start End Encounter Admission Attending Care Care Encounter Source Date/Time Date/Time Type Type Clinicians Facility Department ID 2021-04-01 Outpatient R [facility] [id number] Univers 12:53:45 ANDRZEJ Morris of [facility] [place] [facility] 2021-01-02 2021-01-02 Surgery [facility] [id number] Univers 14:28:00 15:02:00 Andrzej morris 350.1.13.10 ity of [place] 4.2.7.2.686 [place] [id number] [facility] 020 Branch 2021-01-02 2021-01-02 [facility] [id number] Univers 12:10:00 14:06:00 Encounter eAndrzej 350.1.13.10 ity of [place] 4[place]2.7.2.686 [place] [id number] [facility] 071 Branch 2021-01-02 2021-01-02 Orders Doctor ALISSA [id number] [id number] Univers 00:00:00 00:00:00 Only Unassigned, YASMIN 350.1.13.10 ity of [facility] 4.2.7.2.686 Ronnie as [id number] [facility] 009 Branch 2021-01-01 2021-01-01 Laboratory Only, Adc Test [facility] 1.2.840. 114 [id number] Univers 16:45:46 17:00:46 Only Andrzej Blair 350.1.1 3.10 ity of [place] 4.2.7.2.686 [place] [id number] [facility] 353 Branch 2021-01-01 2021-01-01 Outpatient R [facility] [id number] Univers 16:30:00 16:30:00 [id number] ity of [facility] [place] [facility] 2021-01-01 2021-01-01 Outpatient R [facility] [id number] Univers 15:30:00 15:30:00 ANDRZEJ Morris o f [facility] [place] [facility] 2020-04-23 2020-04-23 Emergency NUSZEN, [facility] [id number] 24 [place] 00:00:00 00:00:00 AZAR Zapata Method i st Results Test Description Test Time Test Comments Results Result [facility] e Comments - XR FLUORO FOR 2019-04-27 Patient Name: SPINE INJ 16:17:00 JULI GORDON Unit No: [id number] EXAMS: CPT CODE: [id number] XR FLUORO FOR SPINE INJ 76560 CERVICAL TRANSFORAMINAL INJECTION REFERRING PHYSICIAN: PREOPERATIVE DIAGNOSIS: Cervical radiculitis POSTOPERATIVE DIAGNOSIS: Cervical radiculopathy PROCEDURES PERFORMED: Fluoroscopically guided needle localization of the bilateral C6, bilateral C7 spinal nerves with transforaminal epidural steroid injection/injections. 2. Transforaminal epidurogram/epidurogram s at bilateral C6, bilateral C7 FINDINGS: Poor [...] taken to the PACU in good condition. [place] [facility] NAME: JULI GORDON [address] [facility] PHYS: Deejay Chaparro MD [place] [address] : 1945 AGE: 74 SEX: F LOC: JESUS PHONE #: [phone] EXAM DATE: 04/27/2019 STATUS: REG [facility] FA[place] #: [phone] RAD #: D/C DT PAGE 1 Signed Report (CONTINUED) Patient Name: JULI GORDON Unit No: [id number] EXAMS: CPT CODE: [id number] XR FLUORO FOR SPINE INJ 77792 <Continued> at 1617 Reported and signed by: Deejay Hutton M.D. CC: Technologist: Francesca Floyd(R) Transcribed D/ (1617) Vini [facility] NAME: JULI GORDON [address] [facility] PHYS: Deejay Chaparro MD [place] [address] : 1945 AGE: 74 SEX: F LOC: JESUS PHONE #: [phone] EXAM DATE: 04/27/2019 STATUS: REG [employer] FAX #: [phone] RAD #: D/C DT PAGE 2 Signed Report Patient Name: JULI GORDON Unit No: [id number] EXAMS: CPT CODE: [id number] XR FLUORO FOR SPINE INJ 27306 <Continued> Orig Print D/T: S: 04/27/2019 (1621) [facility] NAME: JULI GORDON [address] [facility] PHYS: Deejay Chaparro MD [place] [address] : 1945 AGE: 74 SEX: F LOC: JESUS PHONE #: [phone] EXAM DATE: 04/27/2019 STATUS: REG [facility] [place] #: [phone] RAD #: D/C DT PAGE 3 Signed Report - XR L-SPINE 2019-04-06 Patient Name: W/BEND VIEW 13:07:00 JULI GORDON Unit No: [id number] EXAMS: CPT CODE: [id number] XR L-SPINE W/BEND VIEW 29991 COMPARISON: Concurrent MRI. IMAGES PROVIDED: 8 FINDINGS: 5 lumbar type vertebrae. Postoperative changes of L4-L5 posterior instrumented fusion demonstrated without evidence of gross complication. No acute fracture. No pathologic motion is complex/extension. No acute fracture. Disc degeneration is greatest at L3-L4 and L5-S1. Calcified plaque is seen within the aorta and its branches. Right hip arthroplasty is partially visualized. Cholecystectomy clips. Recommend IMPRESSION: Postoperative lumbar spine with multilevel spondylosis. No evidence of dynamic instability. at 1307 Reported and signed by: Ignacio Arshad M.D. CC: Reid Lua M.D. Technologist: RT Kvng.(R) Transcribed D/ (4894) [facility]: [facility]I [facility]ORD[facility] [address] [facility] PHYS: Reid Malloy MD : 1945 AGE: 74 SEX: F [place] [address] LOC: Y.MRI PHONE #: [phone] EXAM DATE: 04/05/2019 STATUS: DEP CLI FAX #: [phone] RAD #: D/C DT PAGE 1 Signed Report Patient Name: JULI GORDON Unit No: [id number] EXAMS: CPT CODE: [id number] XR L-SPINE W/BEND VIEW 74696 <Continued> Orig Print D/T: S: 04/06/2019 (0516) [facility] NAME: JULI GORDON [address] [facility] PHYS: Reid Malloy MD : 1945 AGE: 74 SEX: F [place] [address] LOC: Y.MRI PHONE #: [phone] EXAM DATE: 04/05/2019 STATUS: DEP CLI FAX #: [phone] RAD #: D/C DT PAGE 2 Signed Report - MRI L-SPINE W/O 2019-04-05 Patient Name: CONT 14:43:00 JULI GORDON Unit No: [id number] EXAMS: CPT CODE: [id number] MRI L-SPINE W/O CONT 21926 TECHNIQUE: Multiplanar, multisequence MRI examination performed of the lumbar spine without intravenous contrast material. COMPARISON: MR dated 10/18/2013 FINDINGS: Interval postoperative changes of L4-L5 posterior instrumented fusion demonstrated. Interbody graft is present without evidence of complication. Alignment: Grade 1 spondylolisthesis of L4-L5. Bone Lesion: A hemangioma seen within the L1 vertebral body. Fracture: None present. Paraspinal Soft Tissues: A left renal hyperintense lesion is again noted, [...] protrusion measuring 3 mm, which approaches the right L3 nerve. Bilateral facet hypertrophy. Mild central canal [...] Reported and signed by: Ignacio Arshad M.D. [facility] NAME: JULI GORDON [address] [facility] PHYS: Reid Malloy MD : 1945 AGE: 74 SEX: F [place] [address] LOC: Y.MRI PHONE #: [phone] EXAM DATE: 04/05/2019 STATUS: REG CLI FAX #: [phone] RAD #: D/C DT PAGE 1 Signed Report (CONTINUED) Patient Name: JULI GORDON Unit No: [id number] EXAMS: CPT CODE: [id number] MRI L-SPINE W/O CONT 32794 <Continued> CC: Reid Lua M.D. Technologist: Mariel Pardo(R) Transcribed D/ (9456) Gideon [facility] NAME: JULI GORDON [address] [place] [address] PHYS: Reid Malloy MD : 1945 AGE: 74 SEX: F [place] [address] LOC: Y.MRI PHONE #: [phone] EXAM DATE: 04/05/2019 STATUS: REG CLI FAX #: [phone] RAD #: D/C DT PAGE 2 Signed Report Patient Name: JULI GORDON Unit No: [id number] EXAMS: CPT CODE: [id number] MRI L-SPINE W/O CONT 78299 <Continued> Orig Print D/T: S: 04/05/2019 (6022) [facility] NAME: JULI GORDON [address] [place] [address] PHYS: Reid Malloy MD : 1945 AGE: 74 SEX: F [place] [address] LOC: Y.MRI PHONE #: [phone] EXAM DATE: 04/05/2019 STATUS: REG CLI FAX #: [phone] RAD #: D/C DT PAGE 3 Signed Report - MRI C-SPINE W/O 2019-03-23 Patient Name: CONT 13:08:00 JULI GORDON Unit No: [id number] EXAMS: CPT CODE: [id number] MRI C-SPINE W/O CONT 41556 TECHNIQUE: Multiplanar, multisequence MRI examination performed of [...] There is severe central canal stenosis as well as moderate to severe bilateral foraminal narrowing. C6/7: Large disc bulge osteophyte complex with superimposed right paracentral disc protrusion suspected measuring 3 mm, contributing to moderate central canal stenosis. Marked bilateral uncovertebral hypertrophy. Mild bilateral facet degeneration. There is severe left, [...] by: Ignacio Arshad M.D. CC: Vincent Sumner MD Technologist: YANELIS JEAN RT(R) Transcribed D/ (9760) [email or web address] [facility] NAME: JULI GORDON [address] [facility] PHYS: Vincent Garcia MD : 1945 AGE: 74 SEX: F [place], [place] [address] LOC: Y.MRI PHONE #: [phone] EXAM DATE: 03/22/2019 STATUS: DEP CLI FAX #: [phone] RAD #: D/C DT PAGE 1 Signed Report Patient Name: JULI GORDON Unit No: [id number] EXAMS: CPT CODE: [id number] MRI C-SPINE W/O CONT 10960 <Continued> Orig Print D/T: S: 03/23/2019 (1311) [facility] NAME: JULI GORDON [address] [facility] PHYS: Vincent Garcia MD : 1945 AGE: 74 SEX: F [place] [address] LOC: Y.MRI PHONE #: [phone] EXAM DATE: 03/22/2019 STATUS: DEP CLI FAX #: [phone] RAD #: D/C DT PAGE 2 Signed Report - CT UP EXTREM 2019-02-02 Patient Name: W/O CONT RT 08:31:00 JULI GORDON Unit No: [id number] EXAMS: CPT CODE: [id number] [place] UP EXTREM W/[place] [address] CT OF THE RIGHT SHOULDER WITH 3-D, SAGITTAL AND CORONAL RECONSTRUCTIONS DIAGNOSIS: There is a medial displaced anterior inferior glenoid fracture. COMMENT: COMPARISON: No prior exams available. Scans were performed with thin sections and reconstructions were obtained. CT radiation dose optimization is achieved for this examination by the use of a CT protocol in accordance with ACR practice standards and adherence to superintendent oil well services's recommendations. 3-D reconstructions were performed on a separate workstation. Glenoid fracture is present with displacement as noted. No other fractures are seen. There is no evidence for rotator cuff atrophy. Reconstructions help confirm these impressions. at 0831 Reported and signed by: Reid Holman MD CC: Vincent Sumner MD Technologist: Monica Ross, RT(R) CTDI: DLP: Trnscrpt: 02/02/2019 (0831) [facility] [place] [facility] NAME: JULI GORDON [address] [facility] PHYS: Vincent Garcia MD : 1945 AGE: 73 SEX: F [place] [address] LOC: Y.RAD PHONE #: [phone] EXAM DATE: 02/01/2019 STATUS: DEP CLI FAX #: [phone] RAD #: D/C DT PAGE 1 Signed Report Patient Name: JULI GORDON Unit No: [id number] EXAMS: CPT CODE: [id number] CT UP EXTREM W/[place] [address] <Continued> Orig Print D/T: S: 02/02/2019 (0834) [facility] NAME: JULI GORDON [address] [facility] PHYS: Vincent Garcia MD : 1945 AGE: 73 SEX: F [place], [place] [address] LOC: ALESSANDRO PHONE #: [phone] EXAM DATE: 02/01/2019 STATUS: DENIZ CLI FAX #: [phone] RAD #: D/C DT PAGE 2 Signed Report
--- NOTE | 2021-05-15 20:39 | ER ---
Nurse's Notes [facility] Name: Delfina Vinson Age: 76 yrs Sex: Female : 1945 Arrival Date: 05/15/2021 Time: 18:35 Bed Waiting Private MD: Diagnosis: Presentation: 05/15 18:44 Chief complaint: Patient states: Nausea, ESTRELLA, pain all over, cough for 1 year, way worse ll1 than usual for 2 days. Coronavirus screen: Vaccine status: Patient reports receiving the 2nd dose of the covid vaccine. Client denies travel out of the [place] in the last 14 days. congestion, cough unrelated to allergies, fatigue, nausea, runny nose, Client presents with at least one sign or symptom that may indicate coronavirus-19. Standard/surgical mask placed on the client. Ebola Screen: Patient denies travel to an Ebola-affected area in the 21 days before illness onset. Initial Sepsis Screen: Does the patient meet any 2 criteria? No. Patient's initial sepsis screen is negative. Does the patient have a suspected source of infection? Yes: Productive cough/pneumonia. Risk Assessment: Do you want to hurt yourself or someone else? Patient reports no desire to harm self or others. Onset of symptoms was May 15, 2020. 18:44 Method Of Arrival: Wheelchair ll1 18:44 Acuity: BILL 3 ll1 Historical: - Allergies: 18:46 No Known Allergies; ll1 - PMHx: 18:46 colon cancer; Hypertension; Hypothyroidism; shingles; ll1 - PSHx: 18:46 Eye SX; ll1 - Immunization history:: Client reports receiving the 2nd dose of the Covid vaccine. - Social history:: Smoking status: Patient denies any tobacco usage or history of. Assessment: 20:38 Reassessment: Called from [facility] No response at this time. 5 Vital Signs: 18:44 BP 148 / 86; Pulse 54; Resp 17; Temp 97.0; Pulse Ox 96% ; Weight 104.33 kg; Height 5 ll1 ft. 3 in. (160.02 cm); Pain 5/10; 18:44 Body Mass Index 40.74 (104.33 kg, 160.02 cm) ll1 ED Course: 18:35 Patient arrived in ED. ja2 18:46 Triage completed. ll1 18:47 Arm band placed on. ll1 Administered Medications: No medications were administered Outcome: 20:38 Patient left the ED. jh5 Signatures: Josefa Carrera RN RN 1 Roya Newell2 Roya Solomon RN RN jh5
[2021-05-15 21:09] VITALS: BP 148/86; TEMP 97; O2SAT 96
== END 2021-05-15 20:38 | disposition left against medical advice (07) ==
LOC: ER 18:31
DX: R51.9 Headache, unspecified (principal); Z53.21 Procedure and treatment not carried out due to patient leaving prior to being seen by health care provider; I10 Essential (primary) hypertension; E03.9 Hypothyroidism, unspecified; Z85.038 Personal history of other malignant neoplasm of large intestine
CPT/HCPCS: 99281

== ENCOUNTER 2022-11-04 07:07 | Emergency (ER) | payer OTHER ==
--- OUTSIDE RECORDS SUMMARY | 2022-11-04 07:12 | XMS REPORT | Continuity of Care Document ---
:1945 Author Organization [facility] t Address [address] [facility] [address] [place] [address] Care Team Providers Name Role Phone Layla Nickerson MD, Alissa Carr Primary Care Physician [phone] EDDY BLAIR Attending Clinician Unavailable EMILIA VILLANUEVA Attending Clinician Unavailable Emilia Borrero Attending Clinician Unknown, Attending Attending Clinician Unavailable Chad Whittington Attending Clinician Unavailable Sharon Donato Attending Clinician SHARON CHILEL Attending Clinician Unavailable UNKNOWN, ATTENDING Attending Clinician Unavailable Provider, [facility] Attending Clinician Unavailable MELVIN_West_Fer Attending Clinician Unavailable Thor LOUIS, Kd Palomino Attending Clinician [facility] Attending Clinician Unavailable Gladys Glez MD Attending Clinician GLADYS GLEZ Attending Clinician Unavailable GLADYS GLEZ Attending Clinician Unavailable Doctor Unassigned, [place] Attending Clinician Unavailable FAISAL GARCIA Attending Clinician Unavailable Faisal Garcia MD Attending Clinician Only, Adc Test Attending Clinician Unavailable Pob, Adc Lab Main Attending Clinician Unavailable Eddy Blair MD Attending Clinician DARIUSShermanMADDIE AZAR Attending Clinician Unavailable EDDY BLAIR Admitting Clinician Unavailable Chad Whittington Admitting Clinician Unavailable Physician, No Primary or Family Admitting Clinician Unavaila hayden CHARLES_West_Julio_ Admitting Clinician Unavailable FAISAL GARCIA Admitting Clinician Unavailable Faisal Garcia MD Admitting Clinician Eddy Blair MD Admitting Clinician Payers Payer Name Policy Type Policy Number Effective Date Expiration Date [place] leiva MEDICARE PART A [id number] 2008 \T\ B 00:00:00 [place] B-[place]: [id number] [employer] Problems Condition Condition Condition Status Onset Resolution Last Treating Co mments Source Name Details Category Date Date Treatment Clinician Date No known No known Disease Unive rs active active ity of problems problems [facility] Allergies, Adverse Reactions, Alerts Allergy Allergy Status Severity Reaction(s) Onset Inactive Treating Comm ents Source Name Type Date Date Clinician No Known DA Active U 2018-06 [facility] 06-27 [place] Allergie 00:00: [facility] No Known DA Active U 2018-06 [facility] 06-27 [place] Allergie 00:00: Cabrales s [address] [facility] Codeine Propensi Active Methodi ty to 08-25 adverse 00:00: Hospita reaction 00 l s to drug Hydrocod Propensi Active Method i one ty to 08-25 adverse 00:00: Hospita reaction 00 l s to drug Sulfa DA Active SV [facility] (Sulfona 08-24 [place] mide 00:00: Orthope Antibiot 00 dic ics) Hospita l celecoxi DA Active PA [facility] b 08-24 [place] 00:00: Orthope 00 dic [facility]ospita l apple FA Active SV [facility] 08-24 [place] 00:00: Orthope 00 dic [facility]ospita l ALL RAW DA Active SV MOUTH/TONGUE [facility] FRUIT SWELLING/ITC 3-26 [place] r DEBI 00:00: Cabrales [address] [facility] NO KNOWN Drug Active Univers ALLERGIE Class ity of S [facility] Family History Family Member Diagnosis Comments Start Date Stop Date Source Natural brother Diabetes [facility] Natural mother Diabetes [facility] Social History Social Habit Start Date Stop Date Quantity Comments Source Gender identity [facility] Sexual orientation [facility] Exposure to 2022-05-30 2022-06-09 Not sure [facility]-CoV-2 (event) 00:00:00 10:05:00 [facility] Tobacco use and 2022-06-05 2022-06-05 Smokeless Universit y of exposure 00:00:00 00:00:00 tobacco non-user [facility] Alcohol intake 2020-04-23 2020-04-23 Current [facility] 00:00:00 00:00:00 non-drinker of Hospital alcohol (finding) History of Social 2020-04-23 2020-04-[address] function 00:00:00 00:00:00 Hospital Sex Ass[birth year] At [birth year] [facility] 00:00:00 00:00:00 Hospital Smoking Status Start Date Stop Date Source Never smoked tobacco [facility] [place] Medications Ordered Filled Start Stop Current Ordering Indication Dosage Frequency Signature Comments Components Source Medication Medication Date Date Medication? Clinician (SIG) Name Name Diclofenac 2022- Yes [id number] Apply to Univers Sodium 10-29 area(s) 3 ity of (VOLTAREN) 00:00: 04:59 (three) [place] 1 % gel 00 :00 times Medical daily for Branch 7 days. methocarbam 2022- Yes [id number] 500mg Take 1 Univers oL 500 mg 10-29 tablet by ity of tablet 00:00: 04:59 mouth 4 [place] 00 :00 (four) Medical times Branch daily as needed for Pain (scale 7-10) for up to 5 days. losartan 50 Yes losartan Un sanjuanita mg tablet 06-09 50 mg ity of 10:12: tablet [place] Take 1 Medical tablet Branch every day by oral route. Cetirizine Yes 10mg Take 10 mg U nivers 10 mg - by mouth ity of capsule 10:12: daily. [place] 21 Medical Branch ALPRAZolam 0 Yes .5mg Take 0.5 Uni vers 0.5 mg 1-09 mg by ity of tablet 10:12: mouth at [place] [address] bedtime. Medical Branch levothyroxi 0 Yes Synthroid U nivers ne 100 mcg 1-09 100 mcg ity of tablet 10:12: tablet [place] 21 Take 1 Medical tablet Branch every day by oral route. Magnesium 2022-0 Yes 250mg Take 250 Uni vers 250 mg Tab 1-09 mg by ity of 10:12: mouth [place] 21 daily. Medical Branch Acetaminoph 0 Yes 500mg Take 500 U nivers en 500 mg 1-09 mg by ity of Cap 10:12: mouth [place] 21 every 6 Medical (six) Branch hours as needed for Pain. Cholecalcif 2022-0 Yes 2000U Take 2,000 Univers oziel, 1-09 Units by ity of Vitamin D3, 10:12: mouth [place] 50 mcg 21 daily. Medical (2,000 Branch unit) capsule traMADoL 50 0 Yes 50mg Take 50 mg Univers mg tablet 1-09 by mouth ity of 10:12: every 6 [place] [address] (six) Medical hours as Branch needed. gabapentin 0 Yes 600mg Take 600 Un sanjuanita 600 mg 1-09 mg by ity of tablet 10:12: mouth [place] [address] TITRATE. Medical Five times Branch daily. 600 mg QID then one dose of 300 mg. omeprazole 0 Yes 40mg Take 40 mg U nivers 40 mg 1-09 by mouth ity of capsule 10:12: daily. [address] Branch SERTraline 2022-0 Yes 25mg Take 25 mg U nivers 25 mg 1-09 by mouth ity of tablet 10:12: daily. [address] Branch losartan 50 2022-0 Yes losartan Un sanjuanita mg tablet 1-09 50 mg ity of 10:12: tablet [place] 21 Take 1 Medical tablet Branch every day by oral route. Cetirizine 2022-0 Yes 10mg Take 10 mg U nivers 10 mg 1-09 by mouth ity of capsule 10:12: daily. [address] Branch ALPRAZolam 0 Yes .5mg Take 0.5 Uni vers 0.5 mg 1-09 mg by ity of tablet 10:12: mouth at [place] [address] bedtime. Medical Branch levothyroxi 2022-0 Yes Synthroid U nivers ne 100 mcg 1-09 100 mcg ity of tablet 10:12: tablet 21 Take 1 Medical tablet Branch every day by oral route. Magnesium 2022-0 Yes 250mg Take 250 Uni vers 250 mg Tab 1-09 mg by ity of 10:12: mouth [place] 21 daily. Medical Branch Acetaminoph 2022-0 Yes 500mg Take 500 U nivers en 500 mg 1-09 mg by ity of Cap 10:12: mouth [place] 21 every 6 Medical (six) Branch hours as needed for Pain. Cholecalcif 2022-0 Yes 2000U Take 2,000 Univers oziel, 1-09 Units by ity of Vitamin D3, 10:12: mouth [place] 50 mcg 21 daily. Medical (2,000 Branch unit) capsule traMADoL 50 2022-0 Yes 50mg Take 50 mg Univers mg tablet 1-09 by mouth ity of 10:12: every 6 [place] [address] (six) Medical hours as Branch needed. gabapentin 2022-0 Yes 600mg Take 600 Un sanjuanita 600 mg 1-09 mg by ity of tablet 10:12: mouth [place] [address] TITRATE. Medical Five times Branch daily. 600 mg QID then one dose of 300 mg. omeprazole 2022-0 Yes 40mg Take 40 mg U nivers 40 mg 1-09 by mouth ity of capsule 10:12: daily. [place] [address] Medical Branch SERTraline 2022-0 Yes 25mg Take 25 mg U nivers 25 mg 1-09 by mouth ity of tablet 10:12: daily. [place] [address] Medical Branch losartan 50 2022-0 Yes losartan Un sanjuanita mg tablet 1-09 50 mg ity of 10:12: tablet 21 Take 1 Medical tablet Branch every day by oral route. Cetirizine 2022-0 Yes 10mg Take 10 mg U nivers 10 mg 1-09 by mouth ity of capsule 10:12: daily. [place] [address] Medical Branch ALPRAZolam 2022-0 Yes .5mg Take 0.5 Uni vers 0.5 mg 1-09 mg by ity of tablet 10:12: mouth at [place] [address] bedtime. Medical Branch levothyroxi 2022-0 Yes Synthroid U nivers ne 100 mcg 1-09 100 mcg ity of tablet 10:12: tablet [place] 21 Take 1 Medical tablet Branch every day by oral route. Magnesium 3-0 Yes 250mg Take 250 Uni vers 250 mg Tab 1-09 mg by ity of 10:12: mouth [place] 21 daily. Medical Branch Acetaminoph 2022-0 Yes 500mg Take 500 U nivers en 500 mg 1-09 mg by ity of Cap 10:12: mouth [place] 21 every 6 Medical (six) Branch hours as needed for Pain. Cholecalcif 2022-0 Yes 2000U Take 2,000 Univers oziel, 1-09 Units by ity of Vitamin D3, 10:12: mouth [place] 50 mcg 21 daily. Medical (2,000 Branch unit) capsule traMADoL 50 2022-0 Yes 50mg Take 50 mg Univers mg tablet 1-09 by mouth ity of 10:12: every 6 [place] 21 (six) Medical hours as Branch needed. gabapentin 2022-0 Yes 600mg Take 600 Un sanjuanita 600 mg 1-09 mg by ity of tablet 10:12: mouth [place] 21 TITRATE. Medical Five times Branch daily. 600 mg QID then one dose of 300 mg. omeprazole 2022-0 Yes 40mg Take 40 mg U nivers 40 mg 1-09 by mouth ity of capsule 10:12: daily. [address] Branch SERTraline 2022-0 Yes 25mg Take 25 mg U nivers 25 mg -09 by mouth ity of tablet 10:12: daily. [address] Branch amoxicillin 2022-0 2022- No [id number] 1{tbl} Take 1 Univers -clavulanat 06-09 tablet by it y of e 00:00: 05:59 mouth in [place] (AUGMENTIN) 00 :00 the Medical 875-125 mg morning Branch per tablet and 1 tablet in the evening. Do all this for 5 days. amoxicillin 2022-0 2022- No [id number] 1{tbl} Take 1 Univers -clavulanat 06-09 tablet by it y of e 00:00: 05:59 mouth in [place] (AUGMENTIN) 00 :00 the Medical 875-125 mg morning Branch per tablet and 1 tablet in the evening. Do all this for 5 days. albuterol 2022-0 2022- No [id number] 2{puff} Univers (VENTOLIN) 06-05 ity of inhaler 2 17:15: 16:32 [place] Puff 00 :00 Medical Branch albuterol 2022-3- No [id number] 2{puff} 2 Puff, Univers (VENTOLIN) -06-05 Inhalation it y of inhaler 2 17:15: 16:32 , [place]CE, 1 [place] P[place] 00 :00 dose, On Medical [facility] 06/05/22 Branch at 1115, Routine azithromyci 2022-0 Yes [id number] 250mg Take 1 Univers n 250 mg 1-05 tablet by ity of tablet 00:00: mouth in [place] 00 the Medical morning. Branch azithromyci 2022-0 Yes [id number] 250mg Take 1 Univers n 250 mg 1-05 tablet by ity of tablet 00:00: mouth in [place] 00 the Medical morning. Branch azithromyci 2022-0 Yes [id number] 250mg Take 1 Univers n 250 mg 1-05 tablet by ity of tablet 00:00: mouth in [place] 00 the Medical morning. Branch azithromyci 2022-0 Yes [id number] 250mg Take 1 Univers n 250 mg 1-05 tablet by ity of tablet 00:00: mouth in [place] 00 the Medical morning. Branch azithromyci 2022-0 Yes [id number] 250mg Take 1 Univers n 250 mg 1-05 tablet by ity of tablet 00:00: mouth in [place] 00 the Medical morning. Branch azithromyci 2022-0 Yes [id number] 250mg Take 1 Univers n 250 mg 1-05 tablet by ity of tablet 00:00: mouth in [place] 00 the Medical morning. Branch azithromyci 2022-0 Yes [id number] 250mg Take 1 Univers n 250 mg 1-05 tablet by ity of tablet 00:00: mouth in [place] 00 the Medical morning. Branch azithromyci 2022-0 Yes [id number] 250mg Take 1 Univers n 250 mg 1-05 tablet by ity of tablet 00:00: mouth in [place] 00 the Medical morning. Branch benzonatate 2022-0 3- No [id number] 100mg Take 1 Univers 100 mg -05 06-13 capsule by ity of capsule 00:00: 05:59 mouth 3 [place] 00 :00 (three) Medical times Branch daily as needed for Cough for up to 7 days. benzonatate 2022- No [id number] 100mg Take 1 Univers 100 mg 06-05 capsule by ity of capsule 00:00: 05:59 mouth 3 [place] 00 :00 (three) Medical times Branch daily as needed for Cough for up to 7 days. benzonatate 2022- No [id number] 100mg Take 1 Univers 100 mg 06-05 capsule by ity of capsule 00:00: 05:59 mouth 3 [place] 00 :00 (three) Medical times Branch daily as needed for Cough for up to 7 days. benzonatate 2022- No [id number] 100mg Take 1 Univers 100 mg 06-05 capsule by ity of capsule 00:00: 05:59 mouth 3 [place] 00 :00 (three) Medical times Branch daily as needed for Cough for up to 7 days. benzonatate 2022- No [id number] 100mg Take 1 Univers 100 mg 06-05 capsule by ity of capsule 00:00: 05:59 mouth 3 [place] 00 :00 (three) Medical times Branch daily as needed for Cough for up to 7 days. benzonatate 2022- No [id number] 100mg Take 1 Univers 100 mg 06-05 capsule by ity of capsule 00:00: 05:59 mouth 3 [place] 00 :00 (three) Medical times Branch daily as needed for Cough for up to 7 days. benzonatate 2022- No [id number] 100mg Take 1 Univers 100 mg 06-05 capsule by ity of capsule 00:00: 05:59 mouth 3 [place] 00 :00 (three) Medical times Branch daily as needed for Cough for up to 7 days. benzonatate 2022- No [id number] 100mg Take 1 Univers 100 mg 06-05 capsule by ity of capsule 00:00: 05:59 mouth 3 [place] 00 :00 (three) Medical times Branch daily as needed for Cough for up to 7 days. molnupiravi 2022- No [id number] 800mg Take 4 Univers r 200 mg 06-05 capsules ity of capsule 00:00: 05:59 by mouth [place] 00 :00 every 12 Medical (twelve) Branch hours for 5 days. molnupiravi 2022- No [id number] 800mg Take 4 Univers r 200 mg 06-05- capsules ity of capsule 00:00: 05:59 by mouth [place] 00 :00 every 12 Medical (twelve) Branch hours for 5 days. amoxicillin 2022- No [id number] 1{tbl} Take 1 Univers -clavulanat 1-09 29-11 tablet by it y of e 00:00: 05:59 mouth in [place] (AUGMENTIN) 00 :00 the Medical 875-125 mg morning Branch per tablet and 1 tablet in the evening. Do all this for 5 days. molnupiravi 2022- No [id number] 800mg Take 4 Univers r 200 mg -09 29- capsules ity of capsule 00:00: 05:59 by mouth [place] 00 :00 every 12 Medical (twelve) Branch hours for 5 days. amoxicillin 2022- No [id number] 1{tbl} Take 1 Univers -clavulanat -09 29-11 tablet by it y of e 00:00: 05:59 mouth in [place] (AUGMENTIN) 00 :00 the Medical 875-125 mg morning Branch per tablet and 1 tablet in the evening. Do all this for 5 days. molnupiravi 2022- No [id number] 800mg Take 4 Univers r 200 mg 06-05 capsules ity of capsule 00:00: 05:59 by mouth [place] 00 :00 every 12 Medical (twelve) Branch hours for 5 days. amoxicillin 2022- No [id number] 1{tbl} Take 1 Univers -clavulanat -09 29-11 tablet by it y of e 00:00: 05:59 mouth in [place] (AUGMENTIN) 00 :00 the Medical 875-125 mg morning Branch per tablet and 1 tablet in the evening. Do all this for 5 days. molnupiravi 2022- No [id number] 800mg Take 4 Univers r 200 mg -09 29-11 capsules ity of capsule 00:00: 05:59 by mouth [place] 00 :00 every 12 Medical (twelve) Branch hours for 5 days. amoxicillin 2022- No [id number] 1{tbl} Take 1 Univers -clavulanat 1-09 29-11 tablet by it y of e 00:00: 05:59 mouth in [place] (AUGMENTIN) 00 :00 the Medical 875-125 mg morning Branch per tablet and 1 tablet in the evening. Do all this for 5 days. molnupiravi 2022- No [id number] 800mg Take 4 Univers r 200 mg -09 29-11 capsules ity of capsule 00:00: 05:59 by mouth [place] 00 :00 every 12 Medical (twelve) Branch hours for 5 days. amoxicillin 2022- No [id number] 1{tbl} Take 1 Univers -clavulanat 1-09 29-11 tablet by it y of e 00:00: 05:59 mouth in [place] (AUGMENTIN) 00 :00 the Medical 875-125 mg morning Branch per tablet and 1 tablet in the evening. Do all this for 5 days. molnupiravi 2022- No [id number] 800mg Take 4 Univers r 200 mg -09 29-11 capsules ity of capsule 00:00: 05:59 by mouth [place] 00 :00 every 12 Medical (twelve) Branch hours for 5 days. amoxicillin 2022- No [id number] 1{tbl} Take 1 Univers -clavulanat 1-09 29-11 tablet by it y of e 00:00: 05:59 mouth in [place] (AUGMENTIN) 00 :00 the Medical 875-125 mg morning Branch per tablet and 1 tablet in the evening. Do all this for 5 days. molnupiravi 2022- No [id number] 800mg Take 4 Univers r 200 mg 06-05-11 capsules ity of capsule 00:00: 05:59 by mouth [place] 00 :00 every 12 Medical (twelve) Branch hours for 5 days. amoxicillin 2022- No [id number] 1{tbl} Take 1 Univers -clavulanat 1-05 -11 tablet by it y of e 00:00: 05:59 mouth in [place] (AUGMENTIN) 00 :00 the Medical 875-125 mg morning Branch per tablet and 1 tablet in the evening. Do all this for 5 days. sodium 2021- No PRN, Univers chloride 10-16 Starting ity of (NS) 18:18: 18:54 on Thu [place] injection 00 :46 1822 at Medi chuckie 1318, Branch Until 10/16/21 at 1354, Routine, Intra-op neomycin-po 2021- No PRN, Unive rs lymyxin-dex 10-16 Starting ity of amethasone 18:18: 18:54 on [place] (MAXITROL) 00 :46 1822 at Med ical 3.5 1318, Branch mg/g-10,000 Until Thu unit/g-0.1 10/16/21 at % 1354, ophthalmic Routine, ointment Intra-op chondroitin 2021- No PRN, Unive rs sulf-sod 10-16 Starting ity of hyaluronate 18:08: 18:54 on Thu [place] (DUOVISC 00 :46 1822 at Medic al VISCO 1308, Branch ELASTIC) Until Thu intraocular 18 at injection 1354, Routine, Intra-op EPINEPHrine 2021- No PRN, Unive rs 1:1,000 (1 10-16 Starting ity of mg/mL) 18:07: 18:54 on Thu [place] (ADRENALIN) 00 :46 18/22 at [place] injection 1307, Branch Until Wed 18 at 1354, Routine, Intra-op water for 2021- No PRN, Univers irrigation 10-16 Starting ity of irrigation 18:01: 18:54 on [place] solution 00 :46 1822 at Medic al 1301, Branch Until Wed 1822 at 1354, Routine, Intra-op dexamethaso 2021- No PRN, Unive rs ne 10-16 Starting ity of (DECADRON 17:57: 18:54 on Thu [place] PHOSPHATE) 00 :46 518/22 at Med ical injection 1257, Branch Until Wed 18 at 1354, Routine, Intra-op ceFAZolin 2021- No PRN, Univers (ANCEF) 5-18 05-18 Starting ity of injection 17:56: 18:54 on Thu 00 :46 1822 at Medical 1256, Branch Until Thu10/16/21 at 1354, MATTHIAS, Intra-op carbachoL 2021- No PRN, Univers (MIOSTAT) 10-16 Starting ity o f 0.01 % 17:56: 18:54 on Thu intraocular 00 :46 10/16/21 at [place] 1256, Branch Until Thu10/16/21 at 1354, Routine, Intra-op Hyaluronida 2021- No PRN, Unive rs se, Human 10-16 Starting ity o f Recomb. 17:55: 18:54 on Thu (HYLENEX) 00 :46 10/16/21 at [facility] chuckie injection 1255, Branch Until Thu10/16/21 at 1354, Routine, Intra-op eye block 2021- No PRN, Univers syringe 11 10-16 Starting ity of mL 17:55: 18:54 on Thu 00 :46 10/16/21 at Medical 1255, Branch Until Thu10/16/21 at 1354, Intra-op balanced 2021- No PRN, Univers salt irrig 10-16 Starting ity of soln comb1 17:55: 18:54 [place] (BSS PLUS) 00 :46 10/16/21 at [facility] ica ophthalmic 1255, Branch solution Until Thu 500 mL bag 10/16/21 at 1354, Routine, Intra-op cyclopent 2021- No .5mL 0.5 mL, Univ ers 1%-tropic 10-16 Right Eye, ity of 1%-phenyl 16:00: 16:04 ONCE, 1 [place] 2.5%-ketor 00 :00 dose, On Medic al 0.5% Thu Branch (MYDRIATIC 10/16/21 at #5) 1100, ophthalmic Routine, solution DSU Pre-op syringe 0.5 mL lactated 2021- No 1000mL at 42 Unive rs ringers IV 10-16 mL/hr, ity of infusion 16:00: 16:04 1,000 mL, [place]nie as 1,000 mL 00 :00 IV Medical Infusion, Branch ONCE, 1 dose, On Thu10/16/21 at 1100, Routine, DSU Pre-op cyclopent 2021- No .5mL 0.5 mL, Univ ers 1%-tropic 10-16-18 Right Eye, ity of 1%-phenyl 16:00: 16:04 ONCE, 1 [place] 2.5%-ketor 00 :00 dose, On Medic al 0.5% Thu Branch (MYDRIATIC 10/16/21 at #5) 1100, ophthalmic Routine, solution DSU Pre-op syringe 0.5 mL lactated 2021- No 1000mL at 42 Unive rs ringers IV 10-16 05-18 mL/hr, ity of infusion 16:00: 16:04 1,000 mL, [place] as 1,000 mL 00 :00 IV Medical Infusion, Branch ONCE, 1 dose, On Thu10/16/21 at 1100, Routine, DSU Pre-op losartan 50 Yes losartan Un sanjuanita mg tablet 5-18 50 mg ity of 13:58: tablet [place] 34 Take 1 Medical tablet Branch every day by oral route. Cetirizine Yes 10mg Take 10 mg U nivers 10 mg 5-18 by mouth ity of capsule 13:58: daily. [place] [address] Medical Branch ALPRAZolam Yes .5mg Take 0.5 Uni vers (XANAX) 0.5 5-18 mg by ity of mg tablet 13:58: [place] 34 bedtime. Medical Branch levothyroxi Yes Synthroid U nivers ne 5-18 100 mcg ity of (SYNTHROID) 13:58: tablet [place] 100 mcg 34 Take 1 Medical tablet tablet Branch every day by oral route. Magnesium 0 Yes 250mg Take 250 Uni vers 250 mg Tab 5-18 mg by ity of 13:58: mouth [place] 34 daily. Medical Branch Acetaminoph 0 Yes 500mg Take 500 U nivers en 500 mg 5-18 mg by ity of Cap 13:58: mouth [place] 34 every 6 Medical (six) Branch hours as needed for Pain. Cholecalcif 0 Yes 2000U Take 2,000 Univers oziel, 5-18 Units by ity of Vitamin D3, 13:58: mouth [place] 50 mcg 34 daily. Medical (2,000 Branch unit) capsule traMADoL 50 2021-0 Yes 50mg Take 50 mg Univers mg tablet 5-18 by mouth ity of 13:58: every 6 [place] (six) Medical hours as Branch needed. gabapentin 0 Yes 600mg Take 600 Un sanjuanita 600 mg 5-18 mg by ity of tablet 13:58: mouth [place] 34 TITRATE. Medical Five times Branch daily. 600 mg QID then one dose of 300 mg. omeprazole 0 Yes 40mg Take 40 mg U nivers 40 mg 5-18 by mouth ity of capsule 13:58: daily. [place] [address] Medical Branch SERTraline 0 Yes 25mg Take 25 mg U nivers 25 mg 5-18 by mouth ity of tablet 13:58: daily. [address] Branch losartan 50 0 Yes losartan Un sanjuanita mg tablet 5-18 50 mg ity of 13:58: tablet [place] 34 Take 1 Medical tablet Branch every day by oral route. Cetirizine 0 Yes 10mg Take 10 mg U nivers 10 mg 5-18 by mouth ity of capsule 13:58: daily. [address] Branch ALPRAZolam 0 Yes .5mg Take 0.5 Uni vers (XANAX) 0.5 5-18 mg by ity of mg tablet 13:58: mouth [place] 34 bedtime. Medical Branch levothyroxi 0 Yes Synthroid U nivers ne 5-18 100 mcg ity of (SYNTHROID) 13:58: tablet [place] 100 mcg 34 Take 1 Medical tablet tablet Branch every day by oral route. Magnesium 0 Yes 250mg Take 250 Uni vers 250 mg Tab 5-18 mg by ity of 13:58: mouth [place] 34 daily. Medical Branch Acetaminoph 0 Yes 500mg Take 500 U nivers en 500 mg 5-18 mg by ity of Cap 13:58: mouth [place] 34 every 6 Medical (six) Branch hours as needed for Pain. Cholecalcif 2021-0 Yes 2000U Take 2,000 Univers oziel, 5-18 Units by ity of Vitamin D3, 13:58: mouth [place] 50 mcg 34 daily. Medical (2,000 Branch unit) capsule traMADoL 50 Yes 50mg Take 50 mg Univers mg tablet 5-18 by mouth ity of 13:58: every 6 [place] [address] (six) Medical hours as Branch needed. gabapentin 0 Yes 600mg Take 600 Un sanjuanita 600 mg 5-18 mg by ity of tablet 13:58: mouth [place] 34 TITRATE. Medical Five times Branch daily. 600 mg QID then one dose of 300 mg. omeprazole 0 Yes 40mg Take 40 mg U nivers 40 mg 5-18 by mouth ity of capsule 13:58: daily. [address] Branch SERTraline 0 Yes 25mg Take 25 mg U nivers 25 mg 5-18 by mouth ity of tablet 13:58: daily. [address] Branch losartan 50 0 Yes losartan Un sanjuanita mg tablet 5-18 50 mg ity of 13:58: tablet [place] 34 Take 1 Medical tablet Branch every day by oral route. Cetirizine Yes 10mg Take 10 mg U nivers 10 mg 5-18 by mouth ity of capsule 13:58: daily. [address] Branch ALPRAZolam Yes .5mg Take 0.5 Uni vers (XANAX) 0.5 5-18 mg by ity of mg tablet 13:58: mouth [place] 34 bedtime. Medical Branch levothyroxi Yes Synthroid U nivers ne 5-18 100 mcg ity of (SYNTHROID) 13:58: tablet [place] 100 mcg 34 Take 1 Medical tablet tablet Branch every day by oral route. Magnesium Yes 250mg Take 250 Uni vers 250 mg Tab 5-18 mg by ity of 13:58: mouth [place] 34 daily. Medical Branch Acetaminoph 0 Yes 500mg Take 500 U nivers en 500 mg 5-18 mg by ity of Cap 13:58: mouth [place] 34 every 6 Medical (six) Branch hours as needed for Pain. Cholecalcif 0 Yes 2000U Take 2,000 Univers oziel, 5-18 Units by ity of Vitamin D3, 13:58: mouth [place] 50 mcg 34 daily. Medical (2,000 Branch unit) capsule traMADoL 50 0 Yes 50mg Take 50 mg Univers mg tablet 5-18 by mouth ity of 13:58: every 6 [place] [address] (six) Medical hours as Branch needed. gabapentin 0 Yes 600mg Take 600 Un sanjuanita 600 mg 5-18 mg by ity of tablet 13:58: mouth [place] 34 TITRATE. Medical Five times Branch daily. 600 mg QID then one dose of 300 mg. omeprazole 0 Yes 40mg Take 40 mg U nivers 40 mg 5-18 by mouth ity of capsule 13:58: daily. [address] Branch SERTraline 0 Yes 25mg Take 25 mg U nivers 25 mg 5-18 by mouth ity of tablet 13:58: daily. [address] Branch losartan 50 0 Yes losartan Un sanjuanita mg tablet 5-18 50 mg ity of 13:58: tablet [place] 34 Take 1 Medical tablet Branch every day by oral route. Cetirizine 0 Yes 10mg Take 10 mg U nivers 10 mg 5-18 by mouth ity of capsule 13:58: daily. [address] Branch ALPRAZolam 0 Yes .5mg Take 0.5 Uni vers (XANAX) 0.5 5-18 mg by [place] of mg tablet 13:58: [place] bedtime. [facility] Branch levothyroxi 0 Yes Synthroid U nivers ne 5-18 100 mcg ity of (SYNTHROID) 13:58: tablet [place] 100 [place] 34 Take 1 Medical tablet tablet Branch every day by oral route. Magnesium 0 Yes 250mg Take 250 Uni vers 250 mg Tab 5-18 mg by ity of 13:58: mouth [place] 34 daily. Medical Branch Acetaminoph 0 Yes 500mg Take 500 U nivers en 500 mg 5-18 mg by ity of Cap 13:58: mouth [place] 34 every 6 Medical (six) Branch hours as needed for Pain. Cholecalcif 0 Yes 2000U Take 2,000 [facility] oziel, 5-18 Units by ity of Vitamin D3, 13:58: mouth [place] 50 mcg 34 daily. Medical (2,000 Branch unit) capsule traMADoL 50 2021-0 Yes 50mg Take 50 mg [facility] mg tablet 5-18 by mouth ity of 13:58: every 6 [place] [address] (six) Medical hours as Branch needed. gabapentin 2021-0 Yes 600mg Take 600 Un sanjuanita 600 mg 5-18 mg by ity of tablet 13:58: mouth [place] 34 TITRATE. Medical Five times Branch daily. 600 mg QID then one dose of 300 mg. omeprazole 0 Yes 40mg Take 40 mg U nivers 40 mg 5-18 by mouth ity of capsule 13:58: daily. [address] Branch SERTraline 0 Yes 25mg Take 25 mg U nivers 25 mg 5-18 by mouth ity of tablet 13:58: daily. [address] Branch losartan 50 2021-0 Yes losartan Un [facility] mg tablet 5-18 50 mg ity of 13:58: tablet [place] 34 Take 1 Medical tablet Branch every day by oral route. Cetirizine 0 Yes 10mg Take 10 mg U nivers 10 mg 5-18 by mouth ity of capsule 13:58: daily. [address] Branch ALPRAZolam 0 Yes .5mg Take 0.5 Uni vers (XANAX) 0.5 5-18 mg by [facility]y of mg tablet 13:58: [place] bedtime. Medical Branch levothyroxi 0 Yes Synthroid U nivers ne 5-18 100 mcg ity of (SYNTHROID) 13:58: tablet [place] 100 mcg 34 Take 1 Medical tablet tablet Branch every day by oral route. Magnesium 0 Yes 250mg Take 250 Uni vers 250 mg Tab 5-18 mg by ity of 13:58: mouth [place] 34 daily. Medical Branch Acetaminoph 0 Yes 500mg Take 500 U nivers en 500 mg 5-18 mg by ity of Cap 13:58: mouth [place] 34 every 6 Medical (six) Branch hours as needed for Pain. Cholecalcif 0 Yes 2000U Take 2,000 [facility] oziel, 5-18 Units by ity of Vitamin D3, 13:58: mouth [place] 50 mcg 34 daily. Medical (2,000 Branch unit) capsule traMADoL 50 2021-0 Yes 50mg Take 50 mg [facility] mg tablet 5-18 by mouth ity of 13:58: every 6 [place] 34 (six) Medical hours as Branch needed. gabapentin 2021-0 Yes 600mg Take 600 Un [facility]an[facility] 600 mg 5-18 mg by ity of tablet 13:58: mouth [place] 34 TITRATE. Medical Five times Branch daily. 600 mg QID then one dose of 300 mg. omeprazole 0 Yes 40mg Take 40 mg U nivers 40 mg 5-18 by mouth ity of capsule 13:58: daily. [place] [address] Medical Branch SERTraline 0 Yes 25mg Take 25 mg U nivers 25 mg 5-18 by mouth ity of tablet 13:58: daily. [place] [address] Medical Branch losartan 50 2021-0 Yes losartan Un [facility] mg tablet 5-18 50 mg ity of 13:58: tablet [place] 34 Take 1 Medical tablet Branch every day by oral route. Cetirizine 0 Yes 10mg Take 10 mg U nivers 10 mg 5-18 by mouth ity of capsule 13:58: daily. [place] [address] Medical Branch ALPRAZolam 0 Yes .5mg Take 0.5 Uni vers (XANAX) 0.5 5-18 mg by [facility]y of mg tablet 13:58: mouth [place] bedtime. Medical Branch levothyroxi 0 Yes Synthroid U nivers ne 5-18 100 mcg ity of (SYNTHROID) 13:58: tablet [place] 100 mcg 34 Take 1 Medical tablet tablet Branch every day by oral route. Magnesium 0 Yes 250mg Take 250 Uni vers 250 mg Tab 5-18 mg by ity of 13:58: mouth [place] 34 daily. Medical Branch Acetaminoph 0 Yes 500mg Take 500 U nivers en 500 mg 5-18 mg by ity of Cap 13:58: mouth [place] 34 every 6 Medical (six) Branch hours as needed for Pain. Cholecalcif 0 Yes 2000U Take 2,000 [facility] oziel, 5-18 Units by ity of Vitamin D3, 13:58: mouth [place] 50 mcg 34 daily. Medical (2,000 Branch unit) capsule traMADoL 50 0 Yes 50mg Take 50 mg [facility] mg tablet 5-18 by mouth ity of 13:58: every 6 [place] 34 (six) Medical hours as Branch needed. gabapentin 2021-0 Yes 600mg Take 600 Un san[facility]ita 600 mg 5-18 mg by ity of tablet 13:58: mouth [place] 34 TITRATE. Medical Five times Branch daily. 600 mg QID then one dose of 300 mg. omeprazole 2022-0 Yes 40mg Take 40 mg U nivers 40 mg 5-18 by mouth ity of capsule 13:58: daily. [address] Branch SERTraline 2021-0 Yes 25mg Take 25 mg U nivers 25 mg 5-18 by mouth ity of tablet 13:58: daily. [address] Branch losartan 50 2021-0 Yes losartan Un [facility] mg tablet 5-18 50 mg ity of 13:58: tablet [place] 34 Take 1 Medical tablet Branch every day by oral route. Cetirizine 0 Yes 10mg Take 10 mg U nivers 10 mg 5-18 by mouth ity of capsule 13:58: daily. [place] [address] Medical Branch ALPRAZolam 0 Yes .5mg Take 0.5 Uni vers (XANAX) 0.5 5-18 mg by [facility]y of mg tablet 13:58: mouth [place] bedtime. Medical Branch levothyroxi 0 Yes Synthroid U nivers ne 5-18 100 mcg ity of (SYNTHROID) 13:58: tablet [place] 100 [place]cg 34 Take 1 Medical tablet tablet Branch every day by oral route. Magnesium 0 Yes 250mg Take 250 Uni vers 250 mg Tab 5-18 mg by ity of 13:58: mouth [place] 34 daily. Medical Branch Acetaminoph 0 Yes 500mg Take 500 U nivers en 500 mg 5-18 mg by ity of Cap 13:58: mouth [place] 34 every 6 Medical (six) Branch hours as needed for Pain. Cholecalcif 2021-0 Yes 2000U Take 2,000 [facility] oziel, 5-18 Units by ity of Vitamin D3, 13:58: mouth [place] 50 mcg 34 daily. Medical (2,000 Branch unit) capsule traMADoL 50 2021-0 Yes 50mg Take 50 mg [facility] mg tablet 5-18 by mouth ity of 13:58: every 6 [place] 34 (six) Medical hours as Branch needed. gabapentin 2021-0 Yes 600mg Take 600 Un san[facility]ita 600 mg 5-18 mg by ity of tablet 13:58: mouth [place] 34 TITRATE. Medical Five times Branch daily. 600 mg QID then one dose of 300 mg. omeprazole 2021-0 Yes 40mg Take 40 mg U nivers 40 mg 5-18 by mouth ity of capsule 13:58: daily. [address] Branch SERTraline 0 Yes 25mg Take 25 mg U nivers 25 mg 5-18 by mouth ity of tablet 13:58: daily. [address] Branch losartan 50 2021-0 Yes losartan Un [facility] mg tablet 5-18 50 mg ity of 13:58: tablet [place] 34 Take 1 Medical tablet Branch every day by oral route. Cetirizine 0 Yes 10mg Take 10 mg U nivers 10 mg 5-18 by mouth ity of capsule 13:58: daily. [address] Branch ALPRAZolam 0 Yes .5mg Take 0.5 Uni vers (XANAX) 0.5 5-18 mg by ity of mg tablet 13:58: mouth [place] bedtime. Medical Branch levothyroxi 0 Yes Synthroid U nivers ne 5-18 100 mcg ity of (SYNTHROID) 13:58: tablet [place] 100 mcg 34 Take 1 Medical tablet tablet Branch every day by oral route. Magnesium 0 Yes 250mg Take 250 Uni vers 250 mg Tab 5-18 mg by ity of 13:58: mouth [place] 34 daily. Medical Branch Acetaminoph 0 Yes 500mg Take 500 U nivers en 500 mg 5-18 mg by ity of Cap 13:58: mouth [place] 34 every 6 Medical (six) Branch hours as needed for Pain. Cholecalcif 0 Yes 2000U Take 2,000 [facility] oziel, 5-18 Units by ity of Vitamin D3, 13:58: mouth [place] 50 mcg 34 daily. Medical (2,000 Branch unit) capsule traMADoL 50 2021-0 Yes 50mg Take 50 mg [facility] mg tablet 5-18 by mouth ity of 13:58: every 6 [place] 34 (six) Medical hours as Branch needed. gabapentin 2021-0 Yes 600mg Take 600 Un san[facility]anita 600 mg 5-18 mg by ity of tablet 13:58: mouth [place] 34 TITRATE. Medical Five times Branch daily. 600 mg QID then one dose of 300 mg. omeprazole 2021-0 Yes 40mg Take 40 mg U nivers 40 mg 5-18 by mouth ity of capsule 13:58: daily. [address] SERTraline 0 Yes 25mg Take 25 mg U nivers 25 mg 5-18 by mouth ity of tablet 13:58: daily. [place] [address] Medical Branch losartan 50 0 Yes losartan Un san[facility]ita mg tablet 5-18 50 mg ity of 13:58: tablet [place] 34 Take 1 Medical tablet Branch every day by oral route. Cetirizine 0 Yes 10mg Take 10 mg U nivers 10 mg 5-18 by mouth ity of capsule 13:58: daily. [address] Branch ALPRAZolam 0 Yes .5mg Take 0.5 Uni vers (XANAX) 0.5 5-18 mg by ity of mg tablet 13:58: [place] bedtime. Medical Branch levothyroxi 0 Yes Synthroid U nivers ne 5-18 100 mcg ity of (SYNTHROID) 13:58: tablet [place] 100 mcg 34 Take 1 Medical tablet tablet Branch every day by oral route. Magnesium 0 Yes 250mg Take 250 Uni vers 250 mg Tab 5-18 mg by ity of 13:58: mouth [place] 34 daily. Medical Branch Acetaminoph 0 Yes 500mg Take 500 U nivers en 500 mg 5-18 mg by ity of Cap 13:58: mouth [place] 34 every 6 Medical (six) Branch hours as needed for Pain. Cholecalcif 0 Yes 2000U Take 2,000 [facility] oziel, 5-18 Units by ity of Vitamin D3, 13:58: mouth [place] 50 mcg 34 daily. Medical (2,000 Branch unit) capsule traMADoL 50 0 Yes 50mg Take 50 mg [facility] mg tablet 5-18 by mouth ity of 13:58: every 6 [place] [address] (six) Medical hours as Branch needed. gabapentin 2021-0 Yes 600mg Take 600 Un san[facility]anita 600 mg 5-18 mg by ity of tablet 13:58: mouth [place] 34 TITRATE. Medical Five times Branch daily. 600 mg QID then one dose of 300 mg. omeprazole 2021-0 Yes 40mg Take 40 mg U nivers 40 mg 5-18 by mouth ity of capsule 13:58: daily. [address] Branch SERTraline 0 Yes 25mg Take 25 mg U nivers 25 mg 5-18 by mouth ity of tablet 13:58: daily. [place] [address] Medical Branch losartan 50 0 Yes losartan Un [facility] mg tablet 5-18 50 mg ity of 13:58: tablet [place] 34 Take 1 Medical tablet Branch every day by oral route. Cetirizine 0 Yes 10mg Take 10 mg U nivers 10 mg 5-18 by mouth ity of capsule 13:58: daily. [place] [address] Medical Branch ALPRAZolam 0 Yes .5mg Take 0.5 Uni vers (XANAX) 0.5 5-18 mg by ity of mg tablet 13:58: mouth [place] bedtime. Medical Branch levothyroxi 0 Yes Synthroid U nivers ne 5-18 100 mcg ity of (SYNTHROID) 13:58: tablet [place] 100 m[place] 34 Take 1 Medical tablet tablet Branch every day by oral route. Magnesium 0 Yes 250mg Take 250 Uni vers 250 mg Tab 5-18 mg by ity of 13:58: mouth [place] 34 daily. Medical Branch Acetaminoph 0 Yes 500mg Take 500 U nivers en 500 mg 5-18 mg by ity of Cap 13:58: mouth [place] 34 every 6 Medical (six) Branch hours as needed for Pain. Cholecalcif 0 Yes 2000U Take 2,000 [facility] oziel, 5-18 Units by ity of Vitamin D3, 13:58: mouth [place] 50 mcg 34 daily. Medical (2,000 Branch unit) capsule traMADoL 50 0 Yes 50mg Take 50 mg [facility] mg tablet 5-18 by mouth ity of 13:58: every 6 [place] (six) Medical hours as Branch needed. gabapentin 0 Yes 600mg Take 600 Un san[place]anita 600 mg 5-18 mg by ity of tablet 13:58: mouth [place] 34 TITRATE. Medical Five times Branch daily. 600 mg QID then one dose of 300 mg. omeprazole 0 Yes 40mg Take 40 mg U nivers 40 mg 5-18 by mouth ity of capsule 13:58: daily. [place] [address] Medical Branch SERTraline 0 Yes 25mg Take 25 mg U nivers 25 mg 5-18 by mouth ity of tablet 13:58: daily. [place] [address] Medical Branch losartan 50 2021-0 Yes losartan Un [facility] mg tablet 5-18 50 mg ity of 13:58: tablet [place] 34 Take 1 Medical tablet Branch every day by oral route. Cetirizine 2022-0 Yes 10mg Take 10 mg U nivers 10 mg 5-18 by mouth ity of capsule 13:58: daily. [place] [address] Medical Branch ALPRAZolam 0 Yes .5mg Take 0.5 Uni vers (XANAX) 0.5 5-18 mg by ity of mg tablet 13:58: mouth [place] bedtime. Medical Branch levothyroxi Yes Synthroid U nivers ne 5-18 100 mcg ity of (SYNTHROID) 13:58: tablet [place] 100 m[place] 34 Take 1 Medical tablet tablet Branch every day by oral route. Magnesium 0 Yes 250mg Take 250 Uni vers 250 mg Tab 5-18 mg by ity of 13:58: mouth [place] 34 daily. Medical Branch Acetaminoph Yes 500mg Take 500 U nivers en 500 mg 5-18 mg by ity of Cap 13:58: mouth [place] 34 every 6 Medical (six) Branch hours as needed for Pain. Cholecalcif 0 Yes 2000U Take 2,000 [facility] oziel, 5-18 Units by ity of Vitamin D3, 13:58: mouth [place] 50 mcg 34 daily. Medical (2,000 Branch unit) capsule traMADoL 50 0 Yes 50mg Take 50 mg [facility] mg tablet 5-18 by mouth ity of 13:58: every 6 [place] 34 (six) Medical hours as Branch needed. gabapentin 0 Yes 600mg Take 600 Un san[facility]anita 600 mg 5-18 mg by ity of tablet 13:58: mouth [place] 34 TITRATE. Medical Five times Branch daily. 600 mg QID then one dose of 300 mg. omeprazole 0 Yes 40mg Take 40 mg U nivers 40 mg 5-18 by mouth ity of capsule 13:58: daily. [address] Branch SERTraline 0 Yes 25mg Take 25 mg U nivers 25 mg 5-18 by mouth ity of tablet 13:58: daily. [place] [address] Medical Branch levothyroxi 2021- No 112ug Take 112 Univers ne 112 mcg 5-18 05-18 mcg by ity of tablet 13:26: 00:00 mouth [place] 55 :00 every Medical morning. Branch levothyroxi 2021- No 112ug Take 112 Univers ne 112 mcg 5-18 05-18 mcg by ity of tablet 13:26: 00:00 mouth [place] 55 :00 every Medical morning. Branch gabapentin 2021-0 Yes 600mg Take 600 Un sanjuanita 600 mg 5-09 mg by ity of tablet 14:31: mouth [place] [address] TITRATE. Medical Five times Branch daily. 600 mg QID then one dose of 300 mg. omeprazole 2021-0 Yes 40mg Take 40 mg U nivers 40 mg 5-09 by mouth ity of capsule 14:31: daily. [address] SERTraline 2021-0 Yes 25mg Take 25 mg U nivers 25 mg 5-09 by mouth ity of tablet 14:31: daily. [address] gabapentin 2021-0 Yes 600mg Take 600 Un san[facility]anita 600 mg 5-09 mg by ity of tablet 14:31: mouth [place] [address] TITRATE. Medical Five times Branch daily. 600 mg QID then one dose of 300 mg. omeprazole 2021-0 Yes 40mg Take 40 mg U nivers 40 mg 5-09 by mouth ity of capsule 14:31: daily. [address] SERTraline 2021-0 Yes 25mg Take 25 mg U nivers 25 mg 5-09 by mouth ity of tablet 14:31: daily. [address] gabapentin 2021-0 Yes 600mg Take 600 Un san[facility]anita 600 mg 5-09 mg by ity of tablet 14:31: mouth [place] [address] TITRATE. Medical Five times [place] daily. 600 mg QID then one dose of 300 mg. omeprazole 2021-0 Yes 40mg Take 40 mg U nivers 40 mg 5-09 by mouth ity of capsule 14:31: daily. [address] SERTraline 2021-0 Yes 25mg Take 25 mg U nivers 25 mg 5-09 by mouth ity of tablet 14:31: daily. [address] traMADoL 50 2021-0 Yes 50mg Take 50 mg Univers mg tablet 5-09 by mouth ity of 14:31: every 6 [place] [address] (six) Medical hours as Branch needed. traMADoL 50 2021-0 Yes 50mg Take 50 mg Univers mg tablet 5-09 by mouth ity of 14:31: every 6 [place] [address] (six) Medical hours as Branch needed. traMADoL 50 2021-0 Yes 50mg Take 50 mg Univers mg tablet 5-09 by mouth ity of 14:31: every 6 [place] 55 (six) Medical hours as Branch needed. Acetaminoph 2022-0 Yes 500mg Take 500 U nivers en 500 mg 5-09 mg by ity of Cap 14:26: mouth [place] 33 every 6 Medical (six) Branch hours as needed for Pain. Cholecalcif 2022-0 Yes 2000U Take 2,000 [facility] oziel, 5-09 Units by ity of Vitamin D3, 14:26: mouth [place] 50 mcg 33 daily. Medical (2,000 Branch unit) capsule Acetaminoph 2022-0 Yes 500mg Take 500 U nivers en 500 mg 5-09 mg by ity of Cap 14:26: mouth [place] 33 every 6 Medical (six) Branch hours as needed for Pain. Cholecalcif 2022-0 Yes 2000U Take 2,000 [facility] oziel, 5-09 Units by ity of Vitamin D3, 14:26: mouth [place] 50 mcg 33 daily. Medical (2,000 Branch unit) capsule Acetaminoph 2022-0 Yes 500mg Take 500 U nivers en 500 mg 5-09 mg by ity of Cap 14:26: mouth [place] 33 every 6 Medical (six) Branch hours as needed for Pain. Cholecalcif 2022-0 Yes 2000U Take 2,000 [facility] oziel, 5-09 Units by ity of Vitamin D3, 14:26: mouth [place] 50 mcg 33 daily. Medical (2,000 Branch unit) capsule Magnesium 2021-0 Yes 250mg Take 250 Uni vers 250 mg Tab 5-09 mg by ity of 14:25: mouth [place] 24 daily. Medical Branch Magnesium 2-0 Yes 250mg Take 250 Uni vers 250 mg Tab 5-09 mg by ity of 14:25: mouth [place] 24 daily. Medical Branch Magnesium 2-0 Yes 250mg Take 250 Uni vers 250 mg Tab 5-09 mg by ity of 14:25: mouth [place] 24 daily. Medical Branch losartan 50 2021-0 Yes losartan Un san[place]an[place] mg tablet 5-09 50 mg ity of 14:24: tablet [place] 23 Take 1 Medical tablet Branch every day by oral route. Cetirizine 2021-0 Yes 10mg Take 10 mg U nivers 10 mg 5-09 by mouth ity of capsule 14:24: daily. [place] 23 Medical Branch ALPRAZolam 2021-0 Yes .5mg Take 0.5 Uni vers (XANAX) 0.5 5-09 mg by [facility]y of mg tablet 14:24: [place] bedtime. Medical Branch levothyroxi Yes Synthroid U nivers ne 5-09 100 mcg ity of (SYNTHROID) 14:24: tablet [place] 100 mcg 23 Take 1 Medical tablet tablet Branch every day by oral route. levothyroxi 0 Yes 112ug Take 112 U nivers ne 112 mcg 5-09 mcg by ity of tablet 14:24: mouth [place] 23 every Medical morning. Branch losartan 50 0 Yes losartan Un san[place]anita mg tablet 5-09 50 mg ity of 14:24: tablet [place] 23 Take 1 Medical tablet Branch every day by oral route. Cetirizine 0 Yes 10mg Take 10 mg U nivers 10 mg 5-09 by mouth ity of capsule 14:24: daily. [place] [address] Medical Branch ALPRAZolam Yes .5mg Take 0.5 Uni vers (XANAX) 0.5 5-09 mg by ity of mg tablet 14:24: mouth at [place] 23 bedtime. Medical Branch levothyroxi Yes Synthroid U nivers ne 5-09 100 mcg ity of (SYNTHROID) 14:24: tablet [place] 100 mcg 23 Take 1 Medical tablet tablet Branch every day by oral route. levothyroxi Yes 112ug Take 112 U nivers ne 112 mcg 5-09 mcg by ity of tablet 14:24: mouth [place] 23 every Medical morning. Branch losartan 50 0 Yes losartan Un san[place] mg tablet 5-09 50 mg ity of 14:24: tablet [place] 23 Take 1 Medical tablet Branch every day by oral route. Cetirizine 0 Yes 10mg Take 10 mg U nivers 10 mg 5-09 by mouth ity of capsule 14:24: daily. [place] [address] Medical Branch ALPRAZolam 0 Yes .5mg Take 0.5 Uni vers (XANAX) 0.5 5-09 mg by ity of mg tablet 14:24: mouth at [place] 23 bedtime. Medical Branch levothyroxi 0 Yes Synthroid U nivers ne 5-09 100 mcg ity of (SYNTHROID) 14:24: tablet [place] 100 mcg 23 Take 1 Medical tablet tablet Branch every day by oral route. levothyroxi Yes 112ug Take 112 U nivers ne 112 mcg 5-09 mcg by ity of tablet 14:24: mouth [place] 23 every Medical morning. Branch Cetirizine Yes Take by [facility] ers 10 mg 8-04 mouth. ity of capsule 19:28: [address] ALPRAZolam Yes Xanax 0.5 Un sanjuanita [...] by oral route. Cetirizine Yes Take by [facility] ers 10 mg 8-04 mouth. ity of capsule 19:28: [address] ALPRAZolam Yes Xanax 0.5 Un sanjuanita [...] by oral route. Cetirizine Yes Take by [facility] ers 10 mg 8-04 mouth. ity of capsule [...] 50 Yes losartan Un san[place]anita mg tablet 8- 50 mg ity of 19:28: tablet [place] 16 Take 1 Medical tablet Branch every day by oral route. lactated 0 Yes 1000mL at 100 [facility] rs ringers IV 8-04 mL/hr, ity of infusion 19:15: 1,000 [place], [place] 00 IV Medical Infusion, Branch CONTINUOUS , Starting Thu01/02/21 at 1415, Until Discontinu ed, Routine, PACU lactated 2020- No 1000mL at 100 [facility] ers ringers IV 8-04 08-04 mL/hr, ity of infusion 19:15: 21:28 1,000 mL, [place] 1,000 mL 00 :17 IV Medical Infusion, Branch CONTINUOUS , Starting Thu01/02/21 at 1415, Until Thu01/02/21 at 1628, Routine, PACU ondansetron 0 Yes 4mg 4 mg, Slow Univers (ZOFRAN 8-04 IV Push, ity of (PF)) 19:02: PRN, 1 [place] injection 4 28 dose, Medical mg Starting Branch Thu01/02/21 at 1402, Until Discontinu ed, Routine, Nausea and Vomiting (N/V), PACU ondansetron 2020-0 2021- No 4mg 4 mg, Slow Univers (ZOFRAN 8-04 08-04 IV Push, ity of (PF)) 19:02: 21:28 PRN, 1 [place] injection 4 28 :17 dose, Medical mg Starting Branch 01/02/21 at 1402, Until 01/02/21 at 1628, Routine, Nausea and Vomiting (N/V), PACU simethicone Yes PRN, [place] [facility] (GAS RELIEF 8-04 Starting ity of (SIMETHICON 18:15: 01/02/21 [place] E)) 40 00 at 1315, Medical mg/0.6 mL Until Branch drops Discontinu ed, Routine, Intra-op lactated 2020- No 1000mL at 42 [facility] rs ringers IV 8- 08-04 mL/hr, ity of infusion 18:15: 18:06 1,000 mL, [place] 1,000 mL 00 :00 IV Medical Infusion, Branch ONCE, 1 dose, 01/02/21 at 1315, Routine, Endo Pre-op simethicone 2020- No PRN, [facility] rs (GAS RELIEF 8- 08-04 Starting ity of (SIMETHICON 18:15: 21:28 01/02/21 [place] E)) 40 00 :17 at 1315, Medical mg/0.6 mL Until Wed Branc h drops 01/02/21 at 1628, Routine, Intra-op lactated 2020- No 1000mL at 42 [facility] rs ringers IV 8-04 08-04 mL/hr, ity of infusion 18:15: 18:06 1,000 mL, [place] 1,000 mL 00 :00 IV Medical Infusion, Branch ONCE, 1 dose, 01/02/21 at 1315, Routine, Endo Pre-op losartan 50 Yes losartan Un sanjuanita mg tablet 8 50 mg ity of 20:44: tablet Take 1 Medical tablet Branch every day by oral route. Cetirizine Yes Take by [facility] ers 10 mg 8-03 mouth. ity of capsule 20:44: [place] 31 Medical Branch ALPRAZolam Yes Xanax 0.5 Un san[facility]anita (XANAX) 0.5 8-03 mg tablet ity of mg tablet 20:44: Take 1 31 tablet 3 Medical times a Branch day by oral route. levothyroxi Yes Synthroid U nivers ne 8-03 100 mcg ity of (SYNTHROID) 20:44: tablet [place] 100 m[place] 31 Take 1 Medical tablet tablet Branch every day by oral route. levothyroxi Yes 112ug Take 112 U nivers ne 112 mcg 8-03 mcg by ity of tablet 20:44: mouth [place] 31 every Medical morning. Branch losartan 2018-0 Yes 50mg QD Take 50 mg Met hodi (COZAAR) 50 3-[address] [facility] tablet 10:15: daily. [facility] l cholecalcif 2018-0 Yes 2000U QD Take 2,000 Methodi oziel, 3-[address] vitamin D3, 10:15: mouth [facility] (VITAMIN 49 daily. l D3) 2,000 unit capsule capsule losartan 2018-0 Yes 50mg QD Take 50 mg Met hodi (COZAAR) 50 3-[address] MG tablet 10:15: daily. [facility] l cholecalcif 2018-0 Yes 2000U QD Take 2,000 Methodi oziel, 3-[address] vitamin D3, 10:15: mouth [facility] (VITAMIN 49 daily. l D3) 2,000 unit capsule capsule levothyroxi 2017-0 Yes 100ug QD Take 100 M ethodi ne 3-[address] (SYNTHROID, 10:14: mouth Hospi [facility] LEVOXYL) 47 daily. l 100 mcg tablet ALPRAZolam Yes .5mg QD Take 0.5 Met hodi (XANAX) 0.5 3-[address] [facility] tablet 10:14: mouth [facility] nightly as l needed for anxiety. CETIRIZINE 2018-0 Yes QD Take by [facility]CL (ZYRTEC 3-[address] ORAL) 10:14: daily. [facility] l levothyroxi 2017-0 Yes 100ug QD Take 100 M ethodi ne 3-[address] (SYNTHROID, 10:14: mouth [facility] LEVOXYL) 47 daily. l 100 mcg tablet ALPRAZolam 2017- Yes .5mg QD Take 0.5 Met hodi (XANAX) 0.5 3-[address] [facility] tablet 10:14: mouth [facility] nightly as l needed for anxiety. CETIRIZINE 2018-0 Yes QD Take by [facility] (ZYRTEC 3-[address] ORAL) 10:14: daily. [facility] 47 l Immunizations Ordered Filled Immunization Date Status Comments Sourc e Immunization Name Name SARS-COV-2 COVID-19 2020-08-13 Completed Unive rsity of PFIZER VACCINE 00:00:00 [facility] SARS-COV-2 COVID-19 2020-08-13 Completed Unive rsity of PFIZER VACCINE 00:00:00 [facility] SARS-COV-2 COVID-19 2020-08-13 Completed Unive rsity of PFIZER VACCINE 00:00:00 [facility] SARS-COV-2 COVID-19 2020-08-13 Completed Unive rsity of PFIZER VACCINE 00:00:00 [facility] SARS-COV-2 COVID-19 2020-08-13 Completed Unive rsity of PFIZER VACCINE 00:00:00 [facility] SARS-COV-2 COVID-19 2020-08-13 Completed Unive rsity of PFIZER VACCINE 00:00:00 [facility] SARS-COV-2 COVID-19 2020-08-13 Completed Unive rsity of PFIZER VACCINE 00:00:00 [facility] SARS-COV-2 COVID-19 2020-08-13 Completed Unive rsity of PFIZER VACCINE 00:00:00 [facility] SARS-COV-2 COVID-19 2020-08-13 Completed Unive rsity of PFIZER VACCINE 00:00:00 [facility] SARS-COV-2 COVID-19 2020-08-13 Completed Unive rsity of PFIZER VACCINE 00:00:00 [facility] SARS-COV-2 COVID-19 2020-08-13 Completed Unive rsity of PFIZER VACCINE 00:00:00 [facility] SARS-COV-2 COVID-19 2020-08-13 Completed Unive rsity of PFIZER VACCINE 00:00:00 [facility] SARS-COV-2 COVID-19 2020-08-13 Completed Unive rsity of PFIZER VACCINE 00:00:00 [facility] SARS-COV-2 COVID-19 2020-08-13 Completed Unive rsity of PFIZER VACCINE 00:00:00 [facility] SARS-COV-2 COVID-19 2020-08-13 Completed Unive rsity of PFIZER VACCINE 00:00:00 [facility] SARS-COV-2 COVID-19 2020-08-13 Completed Unive rsity of PFIZER VACCINE 00:00:00 [facility] SARS-COV-2 COVID-19 2020-08-13 Completed Unive rsity of PFIZER VACCINE 00:00:00 [facility] SARS-COV-2 COVID-19 2020-08-13 Completed Unive rsity of PFIZER VACCINE 00:00:00 [facility] SARS-COV-2 COVID-19 2020-08-13 Completed Unive rsity of PFIZER VACCINE 00:00:00 [facility] SARS-COV-2 COVID-19 2020-08-13 Completed Unive rsity of PFIZER VACCINE 00:00:00 [facility] SARS-COV-2 COVID-19 2020-08-13 Completed Unive rsity of PFIZER VACCINE 00:00:00 [facility] SARS-COV-2 COVID-19 2020-07-23 Completed Unive rsity of PFIZER VACCINE 00:00:00 [facility] SARS-COV-2 COVID-19 2020-07-23 Completed Unive rsity of PFIZER VACCINE 00:00:00 [facility] SARS-COV-2 COVID-19 2020-07-23 Completed Unive rsity of PFIZER VACCINE 00:00:00 [facility] SARS-COV-2 COVID-19 2020-07-23 Completed Unive rsity of PFIZER VACCINE 00:00:00 [facility] SARS-COV-2 COVID-19 2020-07-23 Completed Unive rsity of PFIZER VACCINE 00:00:00 [facility] SARS-COV-2 COVID-19 2020-07-23 Completed Unive rsity of PFIZER VACCINE 00:00:00 [facility] SARS-COV-2 COVID-19 2020-07-23 Completed Unive rsity of PFIZER VACCINE 00:00:00 [facility] SARS-COV-2 COVID-19 2020-07-23 Completed Unive rsity of PFIZER VACCINE 00:00:00 [facility] SARS-COV-2 COVID-19 2020-07-23 Completed Unive rsity of PFIZER VACCINE 00:00:00 [facility] SARS-COV-2 COVID-19 2020-07-23 Completed Unive rsity of PFIZER VACCINE 00:00:00 [facility] SARS-COV-2 COVID-19 2020-07-23 Completed Unive rsity of PFIZER VACCINE 00:00:00 [facility] SARS-COV-2 COVID-19 2020-07-23 Completed Unive rsity of PFIZER VACCINE 00:00:00 [facility] SARS-COV-2 COVID-19 2020-07-23 Completed Unive rsity of PFIZER VACCINE 00:00:00 [facility] SARS-COV-2 COVID-19 2020-07-23 Completed Unive rsity of PFIZER VACCINE 00:00:00 [facility] SARS-COV-2 COVID-19 2020-07-23 Completed Unive rsity of PFIZER VACCINE 00:00:00 [facility] SARS-COV-2 COVID-19 2020-07-23 Completed Unive rsity of PFIZER VACCINE 00:00:00 [facility] SARS-COV-2 COVID-19 2020-07-23 Completed Unive rsity of PFIZER VACCINE 00:00:00 [facility] SARS-COV-2 COVID-19 2020-07-23 Completed Unive rsity of PFIZER VACCINE 00:00:00 [facility] SARS-COV-2 COVID-19 2020-07-23 Completed Unive rsity of PFIZER VACCINE 00:00:00 [facility] SARS-COV-2 COVID-19 2020-07-23 Completed Unive rsity of PFIZER VACCINE 00:00:00 [facility] SARS-COV-2 COVID-19 2020-07-23 Completed Unive rsity of PFIZER VACCINE 00:00:00 [facility] Vital Signs Vital Name Observation Time Observation Value Comments Source Systolic blood 2022-10-29 17:41:00 125 mm[Hg] Univer sity of pressure [facility] Diastolic blood 2022-10-29 17:41:00 74 mm[Hg] Unive rsity of pressure [facility] Heart rate 2022-10-29 17:41:00 52 /min [facility] Body temperature 2022-10-29 17:41:00 36.33 Araseli [facility] Respiratory rate 2022-10-29 17:41:00 22 /min [facility] Body height 2022-10-29 17:41:00 160 cm [facility] Body weight 2022-10-29 17:41:00 98.34 kg [facility] BMI 2022-10-29 17:41:00 38.40 kg/m2 [facility] Oxygen saturation in 2022-10-29 17:41:00 94 /min University of Arterial blood by [facility] Pulse oximetry Branch Systolic blood 2022-06-09 16:08:00 136 mm[Hg] Univer [facility]ity of [facility] Diastolic blood 2022-06-09 16:08:00 78 mm[Hg] [facility]ive [facility] of [facility] Heart rate 2022-06-09 16:08:00 53 /min [facility] Body temperature 2022-06-09 16:08:00 36.61 Araseli [facility] Respiratory rate 2022-06-09 16:08:00 20 /min [facility] Body height 2022-06-09 16:08:00 157.5 cm [facility] Body weight 2022-06-09 16:08:00 99.791 kg [facility] BMI 2022-06-09 16:08:00 40.24 kg/m2 [facility] Oxygen saturation in 2022-06-09 16:08:00 97 /min University of Arterial blood by [facility] Pulse oximetry Branch Systolic blood 2022-06-05 16:18:00 130 mm[Hg] Univer [facility]ity of [facility] Diastolic blood 2022-06-05 16:18:00 85 mm[Hg] [facility]ive [facility] Heart rate 2022-06-05 16:18:00 85 /min [facility] Body temperature 2022-06-05 16:18:00 37.11 Araseli [facility] Respiratory rate 2022-06-05 16:18:00 20 /min [facility] Body weight 2022-06-05 16:18:00 99.791 kg [facility] BMI 2022-06-05 16:18:00 38.98 kg/m2 [facility] Oxygen saturation in 2022-06-05 16:18:00 97 /min [facility] Arterial blood by [place] [employer] [facility] Pulse oximetry Branch Systolic blood 2021-10-16 18:37:00 154 mm[Hg] [facility]iver [facility] Diastolic blood 2021-10-16 18:37:00 62 mm[Hg] [facility] Heart rate 2021-10-16 18:37:00 51 /min [facility] Respiratory rate 2021-10-16 18:37:00 17 /min [facility] Oxygen saturation in 2021-10-16 18:37:00 95 /min University [facility] Arterial blood by [place] [employer] [facility] Pulse oximetry Branch Body temperature 2021-10-16 18:24:00 36.33 Araseli [facility] Body height 2021-10-03 16:14:00 160 cm [facility] Body weight 2021-10-03 16:14:00 99.8 kg [facility] BMI 2021-10-03 16:14:00 38.98 kg/m2 [facility] Systolic blood 2021-10-16 15:59:00 139 mm[Hg] [facility]iver [facility] Diastolic blood 2021-10-16 15:59:00 81 mm[Hg] [facility]ive [facility]ity of [facility] Heart rate 2021-10-16 15:59:00 55 /min [facility] Body temperature 2021-10-16 15:59:00 36.22 Araseli [facility] Respiratory rate 2021-10-16 15:59:00 16 /min [facility] Oxygen saturation in 2021-10-16 15:59:00 96 /min University of Arterial blood by [employer] Pulse oximetry Branch Body height 2021-10-03 16:14:00 160 cm [facility] Body weight 2021-10-03 16:14:00 99.8 kg [facility] BMI 2021-10-03 16:14:00 38.98 kg/m2 [facility] Systolic blood 2021-01-02 18:55:00 157 mm[Hg] Univer sity of pressure [facility] Diastolic blood 2021-01-02 18:55:00 58 mm[Hg] Unive rsity of pressure [facility] Heart rate 2021-01-02 18:55:00 59 /min Universi ty of [facility] Respiratory rate 2021-01-02 18:55:00 18 /min Univ ers[facility] of [facility] Oxygen saturation in 2021-01-02 18:55:00 96 /min University of Arterial blood by [facility] Pulse oximetry Branch Body temperature 2021-01-02 18:23:00 36.56 Araseli Univ [facility] Body height 2021-01-01 20:30:00 160 cm Universi [facility] of [facility] Body weight 2021-01-01 20:30:00 99.791 kg Universi [facility] of [facility] BMI 2021-01-01 20:30:00 38.97 kg/m2 [facility] Systolic blood 2021-01-02 18:55:00 157 mm[Hg] Univer sity of pressure [facility] Diastolic blood 2021-01-02 18:55:00 58 mm[Hg] Unive rsity of pressure [facility] Heart rate 2021-01-02 18:55:00 59 /min Universi [facility] of [facility] Respiratory rate 2021-01-02 18:55:00 18 /min Univ ers[facility] of [facility] Oxygen saturation in 2021-01-02 18:55:00 96 /min University of Arterial blood by [facility] Pulse oximetry Branch Body temperature 2021-01-02 18:23:00 36.56 Araseli Univ [facility] Body height 2021-01-01 20:30:00 160 cm [facility] Body weight 2021-01-01 20:30:00 99.791 kg Universi [facility] of [facility] BMI 2021-01-01 20:30:00 38.97 kg/m2 [facility] Procedures Procedure Date / Time Performing Source Performed Clinician XR CHEST 2 2022-06-09 Emilia Villanueva [place] of 17:08:00 [facility] XR CHEST 2 2022-06-05 Sharon Chilel [place] of 17:15:00 J [facility] POCT SARS-COV-2 ANTIGEN (BINAX 2022-06-05 [facility] 16:21:00 [facility] NM BRAIN SPECT W I 123 DATSCAN 2022-03-12 Kd Mcrae 20:13:00 [facility] CONSENT/REFUSAL FOR DIAGNOSIS AND 2022-01-02 [facility] 15:03:17 Unassigned, No [facility] PHACOEMULSIFICATION OF CATARACT 2021-10-16 [facility] WITH INTRAOCULAR LENS IMPLANT 17:43:[address] [facility] SURGERY [facility] 2021-10-16 [facility] 05:01:00 Unassigned, No [facility] Name Branch ASSIGNMENT OF BENEFITS 2021-10-07 [facility] of 22:08:12 Unassigned, No [facility] EGD (ENDO) 2021-01-02 [facility] 18:08:46 [facility] EGD (ENDO) 2021-01-02 [facility] 18:08:46 [facility] ESOPHAGOGASTRODUODENOSCOPY 2021-01-02 [facility] 17:58:00 Eddy Calvert [facility] SURGERY [facility] 2021-01-02 [facility] 05:01:00 Unassigned, No [facility] CONSENT/REFUSAL FOR DIAGNOSIS AND 2021-01-01 [facility] 21:27:05 Unassigned, No [facility] CONSENT/REFUSAL FOR DIAGNOSIS AND 2021-01-01 [facility] 21:27:05 Unassigned, No [facility] ASSIGNMENT OF BENEFITS 2021-01-01 [facility] 21:26:24 Unassigned, No [facility] ASSIGNMENT OF BENEFITS 2021-01-01 Doctor [facility] y of 21:26:24 Unassigned, No [facility] NOTICE OF BILLING PRACTICES FOR 2021-01-01 Doctor University of MEDICARE PATIENTS 21:26:05 Unassigned, No [facility] NOTICE OF BILLING PRACTICES FOR 2021-01-01 Doctor University of MEDICARE PATIENTS 21:26:05 Unassigned, No [facility] PATIENT FINANCIAL POLICY 2021-01-01 Doctor Un iversity of 21:25:43 Unassigned, No [place] [facility] PATIENT FINANCIAL POLICY 2021-01-01 Doctor Un iversity [...] Branch CONSENT/REFUSAL FOR DIAGNOSIS AND 2021-01-01 Doctor [facility] 21:23:03 Unassigned, No [facility] CONSENT/REFUSAL FOR DIAGNOSIS AND 2021-01-01 Doctor [facility] 21:23:03 Unassigned, No [facility] ASSIGNMENT OF BENEFITS 2021-01-01 Doctor Universit y of 21:22:39 Unassigned, No [facility] ASSIGNMENT OF BENEFITS 2021-01-01 Doctor Universit y of 21:22:39 Unassigned, No [facility] Plan of Care Planned Activity Planned Date Details Comments Source Future Scheduled 2022-09-04 Hepatitis C screening [facility] Test 10:45:14 (procedure) [code = 642623457] Future Scheduled 2022-09-04 SHINGLES VACCINES (1 [facility] Test 10:45:14 of 2) [code = SHINGLES VACCINES (1 of 2)] Future Scheduled 2022-09-04 65+ PNEUMOCOCCAL [facility] Test 10:45:14 VACCINE (1 - PCV) [code = 65+ PNEUMOCOCCAL VACCINE (1 - PCV)] Future Scheduled 2022-09-04 COVID-19 VACCINE (3 - [facility] Test 10:45:14 Booster for Pfizer series) [code = COVID-19 VACCINE (3 - Booster for Pfizer series)] Future Scheduled 2022-09-04 INFLUENZA VACCINE [facility] Test 10:45:14 [code = INFLUENZA VACCINE] Future Scheduled 2022-06-09 Hepatitis C screening [facility] Test 09:59:31 (procedure) [code = 513813714] Future Scheduled 2022-06-09 SHINGLES VACCINES (1 [facility] Test 09:59:31 of 2) [code = SHINGLES VACCINES (1 of 2)] Future Scheduled 2022-06-09 65+ PNEUMOCOCCAL [facility] Test 09:59:31 VACCINE (1 - PCV) [code = 65+ PNEUMOCOCCAL VACCINE (1 - PCV)] Future Scheduled 2022-06-09 COVID-19 VACCINE (3 - [facility] Test 09:59:31 Booster for Pfizer series) [code = COVID-19 VACCINE (3 - Booster for Pfizer series)] Future Scheduled 2022-06-09 INFLUENZA VACCINE [facility] Test 09:59:31 [code = INFLUENZA VACCINE] Encounters Start End Encounter Admission Attending Care Care Encounter Source Date/Time Date/Time Type Type Clinicians Facility Department ID 2021-04-01 Outpatient Agustin [facility] [id number] Univers 12:53:45 EDDY Morris [facility] 2022-10-29 2022-10-29 [facility] [id number] Univers 12:30:00 13[facility]01:[facility] 2022-10-29 2022-10-29 [facility] 1.2.840.11 [id number] Univers 12:30:00 13:01:44 Care Unknown, Attending [facility].10 [facility] 4.2.7.2.686 Ronnie as KRYSTAL?BLEA [phone] [address] MEDICAL OFFICE BUILDING 2022-09-13 2022-09-14 Inpatient BEVERLY Cotter MEDI.01 [id number] [facility] 06:13:00 12:08:00 Musaddiq 87 [facility] 2022-09-13 2022-09-13 Outpatient SIDDHARTH [place] LABO [id number] [facility] 18:20:00 18:20:00 Musaddiq 47 [facility] 2022-06-09 2022-06-09 Outpatient [facility] [id number] Univers 10:49:07 23:59:00 REENU ity of [facility] 2022-06-09 2022-06-09 [facility] 1.2.840.114 [id number] Univers 10:49:07 23:59:00 Encounter [facility] 350.1.13.10 ity of [place] 4.2.7.2.686 Ronnie as KRYSTAL?BLEA [phone] La dicbhaskar LAWS [address] MEDICAL OFFICE [facility] 2022-06-09 2022-06-09 Urgent [facility]anue[facility] 1.2.840.11 [id number] Univers 10:00:00 11:10:07 Care Unknown, Attending HEALTH 350.1.13.10 ity of [place] 4.2.7.2.686 Ronnie as KRYSTAL?BLEA [phone] La ashley IYER 370 [facility] OFFICE [facility] 2022-06-08 2022-06-08 Telephone [facility] 1.2.137.539 [id number] Univers 00:00:00 00:00:00 [facility] 350.1.13.10 ity of [place] 4.2.7.2.686 Ronnie as KRYSTAL?BLEA [phone] [facility] 370 [facility] 2022-06-05 2022-06-05 Outpatient R [facility] [id number] Univers 10:30:23 23:59:00 SHARON smith o f [facility] 2022-06-05 2022-06-05 [facility] 1.2.840.114 [id number] Univers 10:30:23 23:59:00 Encounter [facility] 350.1.13.10 ity of [place] 4.2.7.2.686 Ronnie as KRYSTAL?BLEA [phone] La ashley [facility] 808 [facility] OFFICE [facility] 2022-06-05 2022-06-05 [facility] 1.2.840 .114 [id number] Univers 10:00:00 10:39:12 Care Unknown, Attending HEALTH 350.1.13.10 ity of [place] 4.2.7.2.686 Ronnie as KRYSTAL?BLEA [phone] La dical [address] MEDICAL OFFICE [facility] 2022-06-05 2022-06-05 Outpatient R UNKNOWN, [facility] [id number] Univers 10:15:00 10:15:00 ATTENDING ity of [facility] 2022-06-05 2022-06-05 Telephone Provider, [facility] 1.2.840.114 [id number] Univers 00:00:00 00:00:00 [facility] Clipik 350.1.13.10 it y of Urgent Care [place] 4.2.7.2.686 [place] KRYSTAL?BLEA [id number] La dical [address] OFFICE [facility] 2022-06-05 2022-06-05 Telephone Getachew, [facility] 1.2.047.385 [id number] Univers 00:00:00 00:00:00 [facility] 350.1.13.10 ity of [place] 4.2.7.2.686 Ronnie as KRYSTAL?BLEA [phone] [address] OFFICE [facility] 2022-04-04 2022-04-04 Outpatient [facility] AOSM AOSM [id number] Amanda 00:00:00 00:00:00 _Fer [id number] Orth ope dic Sports Medicin e 2022-03-12 2022-03-12 [facility], .2.840.1 [id number] Methodi 14:30:14 23:59:00 Encounter Kd [place] [address]001.1.[address] 3.430.2.7 Hospit a 3.083534 l .8 2022-03-12 2022-03-12 [facility], 2.840.1 [id number] Methodi 14:30:14 23:59:00 Encounter Kd [place] 23611.1.[address] 3.430.2.7 Hospit a .3.244843 l .8 2022-03-12 2022-03-12 [facility], 2.840.1 [id number] Methodi 09:14:24 14:29:00 Encounter Kd [place] [address]231.1.[address] 3.430.2.7 Hospit a .3.403079 l .8 2022-03-12 2022-03-12 [facility] 1.2.840.1 [id number] Methodi 09:14:24 14:29:00 Encounter Kd [place] [address]502.1.[address] 3.430.2.7 Hospit a .3.720104 l .8 2022-03-12 2022-03-12 Travel 1.2.840.1 1.2.133.827 [id number] Methodi 00:00:00 00:00:[address] 3.430.2.7 0.2.7.3.698 Ho spita .3.383824 084.8 l .8 2022-03-12 2022-03-12 Travel 1.2.840.1 1.2.516.043 [id number] Methodi 00:00:00 00:00:[address] 3.430.2.7 0.2.7.3.698 Ho spita .3.396147 084.8 l .8 2022-02-24 2022-02-24 [facility] 1.2.840.1 [id number] Methodi 00:00:00 00:00:00 Orders Kd [place] [address]9980.1.[address] 3.430.2.7 Hospit a .3.379555 l .8 2022-02-24 2022-02-24 [facility] 1.2.840.1 [id number] Methodi 00:00:00 00:00:00 Orders Kd [place] [address]10.1.[address] 3.430.2.7 Hospit a .3.140093 l .8 2022-01-02 2022-01-02 Flag 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 10 ity [facility] 4.2.7.2.[place] [id number] [facility] [address] 2022-01-02 2022-01-02 Outpatient R GLADYS GLEZ [facility] [id number] Univers 10:00:00 10:00:00 MANSOOR GLEZPRLudivina ity [facility] 2022-01-02 2022-01-02 Orders Doctor ALISSA 1.2.840.114 [id number] Univers 00:00:00 00:00:00 Only Unassigned, YASMIN 350.1.13.10 ity of [place] [address].2.7.2.686 Ronnie as [phone] [address] 2021-10-16 2021-10-[address] [facility] [id number] Univers 10:49:00 13:47:00 FAISAL ity [facility] 2021-10-16 2021-10-16 [facility] 1.2.344.821 [id number] Univers 10:49:00 13:47:00 Encounter Faisal CRUZ 350.1.13.10 ity of [place]2.7.2.686 [place]ICAL [id number] [facility] [address] 2021-10-16 2021-10-16 Surgery [facility] 1.2.840.114 [id number] Univers 11:51:00 12:24:00 Faisal CRUZ 350.1.13.10 [place] 4.2.7.2.686 [place] [id number] [facility] 020 Branch 2021-10-16 2021-10-16 Orders Doctor ALISSA 1.2.840.114 [id number] Univers 00:00:00 00:00:00 Only Unassigned, YASMIN 350.1.13.10 ity of [place] [facility] 4.2.7.2.686 Ronnie as [phone] [facility] [address] 2021-10-14 2021-10-14 Laboratory Only, Adc Test [facility] 1.2.840. 114 [id number] Univers 15:00:00 15:15:00 Only Alicia Faisal Pamella ANTHONY 350.1.13.1 0 it[place] of [place].2.7.2.[place] [id number] [facility] [address] 2021-10-14 2021-10-14 [facility] [id number] Univers 15:00:00 15:00:00 FAISAL aprilhi [facility] 2021-10-07 2021-10-07 Flag Car Driver Manav, Adc Lab Main [facility] 1.2.8 40.114 [id number] Univers 16:15:00 16:30:00 Visit Alicia Faisal Pamella ANTHONY 350.1.13.1 0 ity [facility] 4.2.7.2.686 [place] PROF[place] [id number] [address] 2021-10-07 2021-10-07 Out[facility] [id number] Univers 16:15:00 16:15:00 FAISAL smith [facility] 2021-10-07 2021-10-07 Orders Doctor MAXWELL 1.2.840.114 [id number] Univers 00:00:00 00:00:00 Only Unassigned, YASMIN 350.1.13.10 ity of [place] [facility] 4.2.7.2.686 Ronnie as [phone] [facility] 009 Branch 2021-01-02 2021-01-02 Surgery [facility] 1.2.840.114 [id number] Univers 14:28:00 15:02:00 Eddy morris 350.1.13.10 ity of [place]2.7.2.686 [place] [id number] [facility] 020 Branch 2021-01-02 2021-01-02 Hospital [facility] 1.2.840.114 [id number] Univers 12:10:00 14:06:00 Encounter Eddy morris 350.1.13.10 it[place]2.7.2.[place] [id number] [facility] 071 Branch 2021-01-02 2021-01-02 Orders Doctor MAXWELL 1.2.840.114 [id number] Univers 00:00:00 00:00:00 Only Unassigned, YASMIN 350.1.13.10 [facility] 4.2.7.2.686 Ronnie [phone] [facility] 009 Branch 2021-01-01 2021-01-01 Laboratory Only, Adc Test [facility] 1.2.840. 114 [id number] Univers 16:45:46 17:00:46 Only Eddy Blair 350.1.1 3.10 ity of [place] 4.2.7.2.686 [place] [facility] [id number] [facility] 353 Branch 2021-01-01 2021-01-01 Outpatient R CAROL [facility] [id number] Univers 15:30:00 15:30:00 EDDY Morris f [facility] 2020-04-23 2020-04-23 Emergency NUSZEN, [facility] 064 [id number] 24 [place] 00:00:00 00:00:00 AZAR Zapata Method i st Results Test Description Test Time Test Comments Results Result [facility] e Comments - XR CHEST 1 V 2022-09-14 08:50:00 [facility] 1945 Sex: F Name: DELFINA GORDON [facility] : 1945 Age/S: 77 / F [id number] [address] [place] Unit #: [id number] Loc: [place] [address] Phys: Mayuri Stratton MD Cardiology Acct: [id number] Dis Date: Status: ADM IN PHONE #: [phone] Exam Date: 09/14/202246 FAX #: Reason: S/P PPI EXAMS: CPT: [id number] XR CHEST 1 V [id number] Fluoro Time: DAP (Gy m2): Air Kerma (mGy): Location: T 18 EXAM: XR CHEST 1 VIEW INDICATION: S/P PPI COMPARISON: 09/14/2022 at 4:16 AM. TECHNIQUE: AP Chest FINDINGS: Lines, tubes and hardware: There is a left-sided dual-lead pacemaker in place. Lungs and pleura: Improved aeration of the lungs. Elevation of the right hemidiaphragm persists. Decreased perihilar linear opacities suggest slight improvement in subsegmental atelectasis.. No pneumothorax. Heart/mediastinum: The cardiomediastinal silhouette is enlarged, but stable. Calcified hilar lymph nodes are noted. Bones/soft tissues: No acute bony abnormality. IMPRESSION: Improved aeration with slight decrease in perihilar subsegmental atelectasis. at 0850 Reported and signed by: Yanelis Tuttle MD CC: Mayuri Mccrary [facility] [place]; Chad Whittington MD PAGE 1 Signed Report Name: DELFINA GORDON [facility] : 1945 Age/S: 77 / F [address] Unit #: [id number] Loc: [place] [address] Phys: Mayuri Stratton MD Cardiology Acct: [id number] Dis Date: Status: ADM IN PHONE #: [phone] Exam Date: 09/14/2022 0846 FAX #: Reason: S/P PPI EXAMS: CPT: [id number] XR CHEST 1 V 66126 Fluoro Time: DAP (Gy m2): Air Kerma (mGy): (Continued) Technologist: RT Pedro(R) Keanu Date/Time: 09/14/2022 (0850) [email or web address] Orig Print D/T: S: 09/14/2022 (2753) PAGE 2 Signed Report - XR CHEST 1 V 2022-09-14 08:13:00 [facility] 1945 Sex: F Name: DELFINA GORDON [facility] : 1945 Age/S: 77 / F [address] Unit #: [id number] Loc: [place] [address] Phys: Mayuri Stratton MD Cardiology Acct: [id number] Dis Date: Status: ADM IN PHONE #: [phone] Exam Date: 09/14/2022 0416 FAX #: Reason: Post implanted device EXAMS: CPT: [id number] XR CHEST 1 V 67275 Fluoro Time: DAP (Gy m2): Air Kerma (mGy): Location: C3 EXAM: XR CHEST 1 VIEW INDICATION: Post implanted device COMPARISON: 09/13/2022 at 1319 hours. TECHNIQUE: AP Chest FINDINGS: Lines, tubes and hardware: There is a left-sided dual-lead pacemaker in place. Lungs and pleura: Low lung volumes limit evaluation. There is mild nonspecific elevation of the right hemidiaphragm, unchanged. There are subtle, predominantly linear, bilateral perihilar opacities. Otherwise, no focal consolidation. No definite pleural effusion or appreciable pneumothorax. Heart/mediastinum: The cardiomediastinal silhouette is enlarged, but stable. Calcified hilar lymph nodes are noted. Bones/soft tissues: No acute bony abnormality. IMPRESSION: 1. Low lung volumes limit evaluation. 2. Subtle bilateral perihilar opacities, favored to represent atelectasis or scarring. Trace pulmonary edema is thought to be less likely, but not excluded. at 0813 Reported and signed by: William Romano M.D. CC: Mayuri Mccrary [facility] [place]; Chad Whittington MD PAGE 1 Signed Report Name: DELFINA GORDON [facility] : 1945 Age/S: 77 / F [address] Unit #: [id number] Loc: [place] [address] Phys: Mayuri Stratton MD Cardiology Acct: [id number] Dis Date: Status: ADM IN PHONE #: [phone] Exam Date: 09/14/2022 0416 FAX #: Reason: Post implanted device EXAMS: CPT: [id number] XR CHEST 1 V 62170 Fluoro Time: DAP (Gy m2): Air Kerma (mGy): (Continued) Technologist: Iman Black, RT(R)(CT) Trnscb Date/Time: 09/14/2022 (812) [email or web address] Orig Print D/T: S: 09/14/2022 (816) PAGE 2 Signed Report BASIC METABOLIC PANEL 2022-09-14 05:20:00 Test Item Value Reference Range Interpretation Comme nts SODIUM (test code = NA) 130 mmol/L 134-147 L POTASSIUM (test code = 4.8 mmol/L 3.4-5.0 N K) CHLORIDE (test code = 99 mmol/L 100-108 L CL) CARBON DIOXIDE (test 26 mmol/L 21-32 N code = CO2) ANION GAP (test code = 5.0 GAP calc 4.0-15.0 N GAP) GLUCOSE (test code = 97 MG/DL 70-110 N GLU) BLOOD UREA NITROGEN 10 MG/DL 7-18 N (test code = BUN) GLOMERULAR FILTRATION >=60 max estimate >60 T he Glomerular Filtration RATE (test code = GFR) estGFR Rate is a calculated parameterbased on serum Creatinine, pat ient age and sex. GFR values less than 60 mL/min/1.73 squ are meters are indicative ofChronic Kidney Disease. Values less than 15 mL/min/ 1.73square meters indicate Kidney failure. The ca lculation forGFR is based on the CKD-EPI (2020) calculation. This formulais race indifferent and is the recommended for bobo for GFRby the [facility] Kidney Foundation for Adults.The GFR will not ca lculate if the sex is unkn own or if thepatient's ag e is <18 years. CREATININE (test code = 0.8 MG/DL 0.6-1.0 N CREAT) CALCIUM (test code = CA) 8.8 MG/DL 8.5-10.1 N CBC W/AUTO [id number] 04:53:00 Test Item Value Reference Range Interpretation Comments WHITE BLOOD CELL (test code = 11.0 K/mm3 3.5-11.0 N WBC) RED BLOOD CELL (test code = 4.58 M/mm3 4.70-6.10 L RBC) HEMOGLOBIN (test code = HGB) 14.1 G/DL 10.4-14.9 N HEMATOCRIT (test code = HCT) 43.2 % 31.5-44.1 N MEAN CELL VOLUME (test code = 94.3 Fl 84.5-98.6 N MCV) MEAN CELL HGB (test code = MCH) 30.8 pg 27.0-34.2 N MEAN CELL HGB CONCETRATION 32.6 G/DL 31.5-34.0 N (test code = MCHC) RED CELL DISTRIBUTION WIDTH 13.4 SD 11.5-14.5 N (test code = RDW) PLATELET COUNT (test code = 189 K/mm3 150-450 N PLT) MEAN PLATELET VOLUME (test code 9.20 fL 7.0-10.5 N = MPV) NEUTROPHIL % (test code = NT%) 65.3 % 40-76 N IMMATURE GRANULOCYTE % (test 0.4 % 0.0-5.0 N code = IG%) LYMPHOCYTE % (test code = LY%) 23.7 % 20.5-51.1 N MONOCYTE % (test code = MO%) 8.5 % 1.7-9.3 N EOSINOPHIL % (test code = EO%) 1.6 % 0.0-6.0 N BASOPHIL % (test code = BA%) 0.5 % 0.0-2.0 N NUCLEATED RBC % (test code = 0.0 /100WBC% 0.0-1.0 N NRBC%) NEUTROPHIL # (test code = NT#) 7.2 K/mm3 1.8-7.6 N IMMATURE GRANULOCYTE # (test 0.04 x10 3/uL 0.00-0.03 H code = IG#) LYMPHOCYTE # (test code = LY#) 2.6 K/mm3 0.6-3.2 N MONOCYTE # (test code = MO#) 0.9 K/mm3 0.3-1.1 N EOSINOPHIL # (test code = EO#) 0.2 K/mm3 0.0-0.4 N BASOPHIL # (test code = BA#) 0.1 K/mm3 0.0-0.1 N NUCLEATED RBC # (test code = 0.0 K/mm3 0.0-0.1 N NRBC#) MANUAL DIFF REQUIRED (test code NO DIFF/SCN CRITERIA = MDIFF) - XR CHEST 1 [id number] 15:52:00 [facility] 1945 Sex: F Name: DELFINA GORDON [facility] : 1945 Age/S: 77 / F [address] Unit #: [id number] Loc: [place] [address] Phys: Mayuri Stratton MD Cardiology Acct: [id number] Dis Date: Status: [facility] PHONE #: [phone] Exam Date: 09/13/2022 3889 FAX #: Reason: Post implanted deviceEXAMS: CPT: [id number] XR CHEST 1 V 00846 Fluoro Time: DAP (Gy m2): Air Kerma (mGy): CHEST 1 VIEW: INDICATION: Post implanted device COMPARISON: There are no prior studies for comparison. Location: H54A single portable AP view of the chest demonstrates cardiomegaly with a calcified elongated aorta. Adual-lead left-sided transvenous pacemaker is present. The lung strauss are grossly clear. No apparent pleural effusion nor pneumothorax. The visualized bony structures are unremarkable. IMPRESSION: 1. No acute cardiopulmonary changes noted. at 1552 Reported and signed by: Gamaliel Christine M.D. CC: Mayuri Mccrary [facility] [place] PAGE 1 Signed Report Name: DELFINA GORDON [facility] : 1945 Age/S: 77 / F [address] Unit #: [id number] Loc: [place] [address] Phys: Mayuri Stratton MD Cardiology Acct: [id number] Dis Date: Status: REG [facility] PHONE #: [phone] Exam Date: 09/13/2022 1511 FAX #: Reason: Post implanted device EXAMS: CPT: [id number] XR CHEST 1 V 29815 Fluoro Time: DAP (Gy m2): Air Kerma (mGy): (Con tinued) Technologist: Suleman Robertson, RT(R)(CT) Trnscb Date/Time: 09/13/2022 (1552) [email or web address] Orig Print D/T: S: 09/13/2022 (8025) PAGE 2 Signed Report COVID 19 INHOUSE [id number] 07:34:00 Test Item Value Reference Range Interpretation Comments COVID 19 INHOUSE AG NEGATIVE Negative Per manu facturer, (test code = negative result s should [id number]) be treated aspr esumptive and, if inconsi stent with clinical signs andsymptoms or necessary for patient man agement, should betested with an alternative mol ecular assay. Negative resultsdo not preclude SA RS-CoV-2 infection and s hould not be usedas the s ole basis for patient man agement decisions. Nega tive results should be considered in t he context of apatient's r ecent exposures, hist ory, presence of cli nicalsigns and symptoms co nsistent with COVID-19. LIPID PROFILE (CORONARY RISK)2022-09-13 07:33:00 Test Item Value Reference Range Interpretation Comments TRIGLYCERIDES (test 141 MG/DL 0-150 N code = TRIG) CHOLESTEROL (test 237 MG/DL 133-200 H code = CHOL) CHOLESTEROL/HDL 4.84 RATIO See_Comment RISK ASSOCIA STEPHANIE WITH RATIO (test code = CHOL/HDL RATIOS: RISK CHOLHDL) MALE FEMALE1/2 AVERAGE 3.43 3.27AVERA GE 4.97 4.442X AVERAGE 9.55 7.053X AVERAGE 23.39 11.04 NOTE THAT THE REFERENCE VALUE IS RELATED TO RISK LEVELS ASRECOMMENDED B Y THE [facility] . [Automated mess age] The system which [employer] nerated this result tra nsmitted reference range : 0-. The reference range was not used to interpr et this result as normal/abnormal . HDL CHOLESTEROL 49 MG/DL 40-59 N (test code = HDL) NON-HDL CHOLESTEROL 188 mg/dL <130 H (test code = NHDL) LIPOPROTEIN LDL 171 MG/DL 0-129 H <100 OPTIMAL 100 - 129 (test code = LDL) NEAR OPTIM AL/ABOVE [id number] - 15 9 [id number] - 189 HIGH>OR= 190 VE RY HIGHNOTE THAT G UIDELINES ARE PROVIDED BY NATIONAL CHOLESTEROLEDUC ATION PROGRAM ADULT T REATMENT PANEL III LDL/HDL (test code 3.48 Ratio See_Comment H [Automat ed message] The = LDL/HDL) system which [employer] nerated this result tra nsmitted reference range : 1.48-3.22 Avg. The reference range was not used to interpr et this result as normal/abnormal . [id number] 07:33:00 Test Item Value Reference Range Interpretation Comments MAGNESIUM (test code = MAG) 1.8 MG/DL 1.8-2.4 N COMPREHENSIVE METABOLIC [id number] 07:33:00 Test Item Value Reference Range Interpretation Comments SODIUM (test code 133 mmol/L 134-147 L = NA) POTASSIUM (test 4.0 mmol/L 3.4-5.0 N code = K) CHLORIDE (test 97 mmol/L 100-108 L code = CL) CARBON DIOXIDE 31 mmol/L 21-32 N (test code = CO2) ANION GAP (test 5.0 GAP calc 4.0-15.0 N code = GAP) GLUCOSE (test code 101 MG/DL 70-110 N = GLU) BLOOD UREA 9 MG/DL 7-18 N NITROGEN (test code = BUN) GLOMERULAR >=60 max >60 The Glomerular FILTRATION RATE estimate estGFR Filtratio n Rate is a (test code = GFR) calculated parameterbased on serum Creatinin e, patient age and sex. GFR valuesless than 60 mL/min/1.73 square meters are dimitri cative ofChronic Kidne y Disease. Values less than 15 mL/min/1.73squa re meters indicate Kidney failure. The calculation for GFR is based on the CK D-EPI (2020) calculat ion. This formulais race indifferent and is the recommended formula for GFR by the National Kidney Foundation for Adults.The GFR will not calculate i f the sex is unknown or if thepatient's ag e is <18 years. CREATININE (test 0.8 MG/DL 0.6-1.0 N code = CREAT) TOTAL PROTEIN 7.8 G/DL 6.4-8.2 N (test code = PROT) ALBUMIN (test code 4.0 G/DL 3.4-5.0 N = ALB) GLOBULIN (test 3.8 GM/dL code = GLOB) ALBUMIN/GLOBULIN 1.1 RATIO 1.2-2.2 L RATIO (test code = A/G) CALCIUM (test code 9.6 MG/DL 8.5-10.1 N = CA) BILIRUBIN TOTAL 0.70 MG/DL 0.2-1.2 N (test code = BILT) SGOT/AST (test 21 Unit/L 15-37 N code = AST) SGPT/ALT (test 18 Unit/L 12-78 N code = ALT) ALKALINE 75 Unit/L 45-117 N PHOSPHATASE TOTAL (test code = ALKP) PROTHROMBIN [id number] 07:23:00 Test Item Value Reference Range Interpretation Comments PT PATIENT (test 12.0 SECONDS 9.3-12.9 N code = PTP) INTERNATIONAL NORMAL 1.08 INR Unit 0.8-1.2 N TARG ET INR BY RATIO (test code = INDICATIO N Indication INR) INR1. Prophylax is of venous thrombos is 2.0 - 3.0 (orthoped ic surgery), Proph ylaxis of venous throm bosis (other than hig h-risk surgery), Treat ment of Deep Vein Thrombosis/Pulm onary Embolism, Preve ntion of systemic emb olism - Tissue heart va lves, Acute Myocardia l Infarction (to prevent systemic emboli sm), Valvular heart disease, Acute Myocardial Infa rction (to prevent sys temic embolism), Valv ular heart disease, Atrial Fibrillation, Bileaflet mecha nical valve in aortic position.2. Mec hanical prosthetic valv es (high risk), 2. 5 - 3.5 Presence of Lup us Anticoagulant o r Antiphospholipi d Antibodies, Pre vention of systemic emb olism - Acute Myocardia l Infarction (to prevent recurrent infar ct). THROMBOPLASTIN TIME [id number] 07:23:00 Test Item Value Reference Range Interpretation Comments THROMBOPLASTIN TIME PARTIAL 31.2 SECONDS 26-35 N (test code = PTT) CBC W/AUTO [id number] 07:22:00 Test Item Value Reference Range Interpretation Comments WHITE BLOOD CELL (test code = 9.2 K/mm3 3.5-11.0 N WBC) RED BLOOD CELL (test code = 4.82 M/mm3 4.70-6.10 N RBC) HEMOGLOBIN (test code = HGB) 14.9 G/DL 10.4-14.9 N HEMATOCRIT (test code = HCT) 44.9 % 31.5-44.1 H MEAN CELL VOLUME (test code = 93.2 Fl 84.5-98.6 N MCV) MEAN CELL HGB (test code = MCH) 30.9 pg 27.0-34.2 N MEAN CELL HGB CONCETRATION 33.2 G/DL 31.5-34.0 N (test code = MCHC) RED CELL DISTRIBUTION WIDTH 13.2 SD 11.5-14.5 N (test code = RDW) PLATELET COUNT (test code = 301 K/mm3 150-450 N PLT) MEAN PLATELET VOLUME (test code 8.90 fL 7.0-10.5 N = MPV) NEUTROPHIL % (test code = NT%) 67.6 % 40-76 N IMMATURE GRANULOCYTE % (test 0.3 % 0.0-5.0 N code = IG%) LYMPHOCYTE % (test code = LY%) 20.9 % 20.5-51.1 N MONOCYTE % (test code = MO%) 8.1 % 1.7-9.3 N EOSINOPHIL % (test code = EO%) 2.3 % 0.0-6.0 N BASOPHIL % (test code = BA%) 0.8 % 0.0-2.0 N NUCLEATED RBC % (test code = 0.0 /100WBC% 0.0-1.0 N NRBC%) NEUTROPHIL # (test code = NT#) 6.3 K/mm3 1.8-7.6 N IMMATURE GRANULOCYTE # (test 0.03 x10 3/uL 0.00-0.03 N code = IG#) LYMPHOCYTE # (test code = LY#) 1.9 K/mm3 0.6-3.2 N MONOCYTE # (test code = MO#) 0.8 K/mm3 0.3-1.1 N EOSINOPHIL # (test code = EO#) 0.2 K/mm3 0.0-0.4 N BASOPHIL # (test code = BA#) 0.1 K/mm3 0.0-0.1 N NUCLEATED RBC # (test code = 0.0 K/mm3 0.0-0.1 N NRBC#) MANUAL DIFF REQUIRED (test code NO DIFF/SCN CRITERIA = MDIFF) POCT SARS-COV-2 ANTIGEN (BINAX NOW)2022-06-05 16:21:00 Test Item Value Reference Range Interpretation Comments POCT SARS-COV-2 ANTIGEN Positive Not Detected A (test code = 98343-0) On board controls Yes acceptable with C Line (test code = 3574) SUSANA (test code = SUSANA) accurate development and interpretation of all internal controls Lab Interpretation Abnormal (test code = 06478-0) [facility] [place]- XR FLUORO FOR SPINE [id number] 16:17:00 Patient Name: DELFINA GORDON Unit No: [id number] EXAMS: CPT CODE: [id number] XR FLUORO FOR SPINE INJ 42622 CERVICAL TRANSFORAMINAL INJECTION REFERRING PHYSICIAN: PREOPERATIVE DIAGNOSIS: Cervical radiculitis POSTOPERATIVE DIAGNOSIS: Cervical radiculopathy PROCEDURES PERFORMED: Fluoroscopicallyguided needle localization of the bilateral C6, bilateral C7 spinal nerves with transforaminal epidural steroid injection/injections. 2. Transforaminal epidurogram/epidurograms at bilateral C6, bilateral C7 FINDINGS: Poor filling bilateral C6, bilateral C7. Concordant provocation left C6 neck and shoulder. Pain relief-100%. ANTIBIOTICS:Cefazolin ESTIMATED BLOOD LOSS: Minimal ANESTHESIA: (TIVA ) Total intravenous anesthetic (patient intolerant to sedatives and hypnotics) COMPLICATIONS: None DETAILSOF PROCEDURE: After obtaining stable vital signs, informed consent and IV access, with no known contraindications to proceeding, the patient was taken to the fluoroscopy suite and placed in a supine position with all extremities padded and appropriate monitors placed. A sterile prep and drape was performed over the cervical spine. Using fluoroscopic visualization at each level the insertion site wasmarked for a paravertebral approach to the foramen. [...] taken to the PACU in good condition. [facility] NAME: DELFINA GORDON [address] [facility] PHYS: LETICIA - Deejay Hutton MD [place], [place] [address] : 1945 AGE: 74 SEX: F LOC: MiriamCHRIS PHONE #: [phone] EXAM DATE: 04/27/2019 STATUS: REG [facility] FAX #: [phone] RAD #: D/C DT PAGE 1 Signed Report (CONTINUED) Patient Name: DELFINA GORDON Unit No: [id number] EXAMS: CPT CODE: [id number] XR FLUORO FOR SPINE INJ 19979 (Continued) at 2053 Reported and signed by: Deejay Hutton M.D. CC: Technologist: Francesca Floyd(R) Transcribed D/ (1617) Chelle.UVD [facility] NAME: DELFINA GORDON [address] [facility] PHYS: Deejay Chaparro MD [place], [place] [address] : 1945 AGE: 74 SEX: F ACCT NO: [id number] LOC: JESUS PHONE #: [phone] EXAM DATE: 04/27/2019 STATUS: [facility] FAX #: [phone] RAD #: D/C DT PAGE 2 Signed Report Patient Name: DELFINA GORDON Unit No: [id number] EXAMS: CPT CODE: [id number] XR FLUORO FOR SPINE INJ 50972 (Continued) Orig Print D/T: S: 04/27/2019 (1621) [facility] NAME: DELFINA GORDON [address] [facility] PHYS: Deejay Chaparro MD [place], [place] [address] : 1945 AGE: 74 SEX: F LOC: JESUS PHONE #: [phone] EXAM DATE: 04/27/2019 STATUS: [facility] FAX #: [phone] RAD #: D/C DT PAGE 3 Signed Report- XR L-SPINE W/BEND [id number] 13:07:00 Patient Name: DELFINA GORDON Unit No: [id number] EXAMS: CPT CODE: [id number] XR L-SPINE W/BEND VIEW 37777 COMPARISON: Concurrent MRI. IMAGES PROVIDED: 8 FINDINGS: 5 lumbar type vertebrae. Postope rative changes of L4-L5 posterior instrumented fusion demonstrated [...] Lua M.D. Technologist: RT. Kvng(R) Transcribed D/ (8609)NadiyaSLJ [facility] NAME: DELFINA GORDON [address] [facility] PHYS: Reid Malloy MD : 1945 AGE: 74 SEX: F [place] [address] LOC: Y.MRI PHONE #: [phone] EXAM DATE: 04/05/2019 STATUS: DEP CLI FAX #: [phone] RAD #: D/C DT PAGE 1 Signed Report Patient Name: DELFINA GORDON Unit No: [id number] EXAMS: CPT CODE: [id number] XR L-SPINE W/BEND VIEW 78915 (Continued) Orig Print D/T: S: 04/06/2019 (0529) [facility] NAME: DELFINA GORDON [address] [facility] PHYS: Reid Malloy MD : 1945 AGE: 74 SEX: F [place] [address] LOC: Y.MRI PHONE #: [phone] EXAM DATE: 04/05/20 19 STATUS: DEP CLI FAX #: [phone] RAD #: D/C DT PAGE 2 Signed Report- MRI L-SPINE W/O [id number] 14:43:00 Patient Name: DELFINA GORDON Unit No: [id number] EXAMS: CPT CODE: [id number] MRI L-SPINE W/OCONT 08546 TECHNIQUE: Multiplanar, multisequence MRI examination performed of the lumbar spine witho ut intravenous contrast material. COMPARISON: MR dated 10/18/2013 [...] right foraminal disc protrusion measuring 3 mm, increasedcompared to prior exam. Mild left, moderate right [...] bulge is noted as well as bilateral facethypertrophy. Mild left, moderate right foraminal stenosis is present as well as mild central canal stenosis. IMPRESSION: Interval postoperative changes of L4-L5 posterior instrumented fusion with progression in spondylitic changes as described. Electronically Signed by Erica Arshad on04/05/2019 at 1443 Reported and signed by: Ignacio Arshad M.D. [facility] NAME:DELFINA GORDON [address] [facility] PHYS: Reid Malloy MD : 1945 AGE: 74 SEX: F [place] [address] LOC: Y.MRI PHONE #: [phone] EXAM DATE: 04/05/2019 ST ATUS: REG CLI FAX #: [phone] RAD #: D/C DT PAGE 1 Signed Report (CONTINUED) Patient Name: DELFINA GORDON Unit No: [id number] EXAMS: CPT CODE: [id number] MRI L-SPINE W/O CONT 95835 (Continued) CC: Reid Lua M.D. Technologist: Mariel Pardo(R) Transcribed D/ (0443) [facility]: [facility] [address] [facility] PHYS: Reid Malloy MD : 1945 AGE: 74 SEX: F [place] [address] LOC: Y.MRIPHONE #: [phone] EXAM DATE: 04/05/2019 STATUS: REG CLI FAX #: [phone] RAD #: D/C DT PAGE 2Signed Report Patient Name: DELFINA GORDON Unit No: [id number] EXAMS: CPT CODE: [id number] MRIL-SPINE W/O CONT 58316 (Continued) Orig Print D/T: S: 04/05/2019 (1446) [facility] NAME: DELFINA GORDON [address] [facility] PHYS: Reid Malloy MD : 1945 AGE: 74 SEX: F [place] [address] LOC: Y.MRI PHONE #: [phone] EXAM DATE: 04/05/20 STATUS: REG CLI FAX #: [phone] RAD #: D/C DT PAGE 3 Signed Report- MRI C-SPINE W/O [id number] 13:08:00 Patient Name: DELFINA GORDON Unit No: [id number] EXAMS: CPT CODE: [id number] MRI C-SPINE W/OCONT 89592 TECHNIQUE: Multiplanar, multisequence MRI examination performed of the cervical spine with out intravenous contrast material. COMPARISON: None available. FINDINGS: Exam limited by patient motion. Alignment: Within normal limits Bone Lesion / Fracture: None present. Cervical Spinal Cord: Grossly normal. Prevertebral / Paraspinal Soft Tissues: Unremarkable. C2/3: No significant disc bulge or h erniation. No foraminal or central canal stenosis. C3/4: No significant foraminal or central canal stenosis. C4/5: Minimal disc bulge. Bilateral facet and uncovertebral hypertrophy. There is mild left,moderate right foraminal stenosis as well as mild to moderate central canal stenosis. C5/6: Disc dege neration with endplate marrow changes and diffuse disc [...] right foraminal stenosis. No significant central canal steno sis. IMPRESSION: 1. Exam limited by patient motion. 2. Multilevel cervical spondylosis, greatest atC5-C6, where there is severe central canal stenosis. at 1308 Reported and signed by: Ignacio Arshad M.D. CC: Vincent Sumner MDTechnologist: YANELIS JEAN RT(R) Transcribed D/ (9417) [facility] NAME: DELFINA GORDON [address] [facility] PHYS: Vincent Garcia MD : 1945GE: 74 SEX: F [place] [address] LOC: Y.MRI PHONE #: [phone] EXAM DATE: 03/22/2019 STATUS: DEP CLI FAX #: [phone] RAD #: D/C DT PAGE 1 Signed Report Patient Name: DELFINA OH Unit No: [id number] EXAMS: CPT CODE: [id number] MRI C-SPINE W/O CONT 67054 (Continued) Orig Print D/T: S: 03/23/2019 (1311) [facility] NAME: DELFINA GORDON [address] [place] [address] PHYS: Vincent Garcia MD : 1945 AGE: 74 SEX: F [place] [address] LOC: Y.MRI PHONE #: [phone] EXAM DATE: 03/22/2019 STATUS: DEP CLI FAX #: [phone] RAD #: D/C DT PAGE 2 Signed Report- CT UP EXTREM W/O CONT [id number] 08:31:00 Patient Name: DELFINA GORDON Unit No: [id number] EXAMS: CPT CODE: [id number] [place] UP EXTREM W/[place] [address] CT OF THE RIGHT SHOULDER WITH 3-D, SAGITTAL AND CORONAL RECONSTRUCTIONS DIAGNOSIS: There is a medial displaced anterior inferior glenoid fracture. COMMENT: COMPARISON: No prior exams available. Scans were performed with thin sections and reconstructions were obtained. CT radiation doseoptimization is achieved for this examination by the use of a CT protocol in accordance with ACR practice standards and adherence to tapper operator's recommendations. 3-D reconstructions were performed on a separate workstation. Glenoid fracture is present with displacement as noted. No other fractures are seen. There is no evidence for rotator cuff atrophy. Reconstructions help confirm these impressions. at 0831 Reported and signed by: Reid Holman MD CC: Vincent Sumner MD Technologist: Monica Ross, RT(R) CTDI: DLP: Trnscrpt: 02/02/2019 (0831) t.SDR.JCL [facility] NAME: DELFINA GORDON [address] [facility] PHYS: Vincent Garcia MD : 1945 AGE: 73 SEX: F [place] [address] LOC: Y.RAD PHONE #: [phone] EXAM DATE: 02/01/2019 STATUS: DEP CLI FAX #: [phone] RAD #: D/C DT PAGE 1 Signed Report Patient Name: DELFINA GORDON Unit No: [id number] EXAMS: CPT CODE: [id number] CT UP EXTREM W/[place] [id number] (Continued) Orig Print D/T: S: 02/02/2019 (0834) [facility] NAME: DELFINA GORDON [address] [facility] PHYS: Vincent Garcia MDDOB: 1945 AGE: 73 SEX: F [place] [address] LOC: Y.RAD PHONE #: [phone] EXAM DATE: 02/01/2019 STATUS: DEP CLI FAX #: [phone] RAD #: D/C DT PAGE 2 Signed Report Notes Date/Time Note Provider Source 2022-09-14 10:22:00-00:00 [facility] Hospitalist Discharge Summary REPORT#:[id number] REPORT STATUS: Signed DATE:09/14/22 TIME:1022 PATIENT: DELFINA GORDON UNIT #: [id number] ROOM/BED: [place] [id number] : 43 AGE: 77 SEX: F ATTEND: John Whittington MD ADM AUTHOR: Shoaib Lopez MD * ALL edits or amendments must be made on the 3LM/computer document * General Information Discharge date: 09/14/22 Discharge diagnosis: Sick sinus syndrome with symptomatic bradycardia Status post pacemaker placement Hypertension Hyperlipidemia Hypothyroidism Chronic back pain Hospital course: Patient with history of hypertension dys lipidemia and sick sinus syndrome with symptomatic bradycardia unde rwent pacemaker procedure. Tolerated procedure well and is being admitted for observation ov [facility]. Patient denies any chest pain or shortness of breath no na usea no vomiting no fever. Patient was admitted and was monitored closely under telemetry patient responded well to treatment and is being discharged home today in a stable condition with and advised to follow-up with PCP in 1 week and also with Dr. Stratton in 1 to 2 weeks Med Rec Med Rec Discharge meds: Continue taking these medications: LEVOTHYROXINE (SYNTHROID) 125 MCG TAB 100 MICROGRAM ORAL DAILY. ALPRAZolam (XANAX) 0.5 MG TAB 0.5 MILLIGRAM ORAL TWICE DAILY. CETIRIZINE (ZyrTEC) 10 MG TAB 10 MILLIGRAM ORAL DAILY. IBUPROFEN (MOTRIN) 800 MG TAB 800 MILLIGRAM ORAL EVERY 8 HR NEEDED. as nee ded for PAIN ACETAMINOPHEN (TYLENOL) 500 MG TAB 500 MILLIGRAM ORAL EVERY 6 HOURS NEEDED. as needed for PAIN MAGNESIUM OXIDE (MAG-OXIDE) 400 MG TAB 400 MILLIGRAM ORAL DAILY. CHOLECALCIFEROL (VITAMIN D3) (VITAMIN D3) 1,000 UNIT TAB 1,000 UNITS ORAL DAILY. L. ACIDOPHILUS/L. SALIV/BB/S. THERMOPHL (ACIDOPH ILUS) 175 MG CAP 1 EACH ORAL DAILY. GABAPENTIN (NEURONTIN) 600 MG TAB 1,200 MILLIGRAM ORAL TWICE DAILY. LOSARTAN (COZAAR) 50 MG TAB 50 MILLIGRAM ORAL DAILY. SERTRALINE (ZOLOFT) 25 MG TAB 25 MILLIGRAM ORAL DAILY. traMADol (ULTRAM) 50 MG TAB 50 MILLIGRAM ORAL EVERY 6 HOURS NEEDED. as n eeded for ACUTE PAIN ONDANSETRON ODT (ZOFRAN ODT) 4 MG TAB.RAPDIS 4 MILLIGRAM ORAL EVERY 6 HOURS NEEDED. as ne eded for NAUSEA/VOMITING DULoxetine DR (CYMBALTA) 20 MG CAP.DR 20 MILLIGRAM ORAL DAILY. Start taking the following new medications: CEPHALEXIN (KEFLEX) 500 MG CAP 500 MILLIGRAM ORAL EVERY 8 HOURS. Qty = 21 No Refills HYDROcodone/APAP (HYDROcodone/APAP 7.5/325) 7.5 MG-325 MG TAB 1 TABLET ORAL EVERY 4 HOURS NEEDED. as neede d for PAIN Qty = 15 No Refills Objective VS/I O Last Documented: Result Date Time Pulse Ox 91 09/14 0844 B/P 158/80 09/14 0844 B/P Mean 105.8 09/14 0844 Pulse 60 09/14 0844 Resp 14 09/14 0844 Temp 95.7 09/14 0400 O2 Delivery Room air 09/13 1544 24 hour I O ending at 0700: 09/14 0700 09/13 1900 Intake Total Output Total Balance Patient 220 lb Weight Weight Stated/Reported Measurement Method Physical exam General appearance: alert, awake, oriented HEENT : normocephalic ,Atraumatic Eyes: Eyes normal inspection. ENT: Dry mucous membranes present. Neck: Normal inspection. Neck supple. CVS: Normal heart rate and rhythm. Heart sounds normal. Respiratory: No respiratory distress. Breath nellie nds normal. Abdomen: Soft and nontender. Genitourinary: no bladder distention Back: Normal inspection. Skin: Skin warm. Normal skin color. No rash. Extremities: No lower extremity edema. Neuro: Oriented X 3. No motor deficit No generalized lymph adenopathy Psych normal affect Discharge Instructions PCP Discharge to: Home/Self Care Additional Discharge Routines: PCP Follow-Up, Co nsultant Follow-Up Diet: Resume Home Diet/Feeds Discharge management: greater than 30 mins Follow-up Appointments PCP follow-up: PCP: No Primary or Family Physician PCP follow up timeframe: In 1-2 weeks Consulting provider 1: Provider 1: Mayuri Stratton MD Cardiology Specialty: CardiologyInterventional Consult follow up timeframe: In 1-2 weeks Electronically Signed by Shoaib Lopez MD on at 1114 RPT #: [id number] END OF REPORT 2022-09-13 15:57:00-00:00 [facility] ([facility]) History Physical - Adult REPORT#:[id number] REPORT STATUS: Signed DATE:09/13/22 TIME:1557 PATIENT: DELFINA GORDON UNIT #: [id number] ROOM/BED: : 43 AGE: 77 SEX: F ATTEND: Judd Stratton MD Cardiology ADM AUTHOR: Chad Whittington MD * ALL edits or amendments must be made on the 3LM/computer document * History of Present Illness HPI Chief complaint: S/p pacemaker HPI: Patient with history of hypertension dys lipidemia and sick sinus syndrome with symptomatic bradycardia unde rwent pacemaker procedure. Tolerated procedure well and is being admitted for observation ov [facility]. Patient denies any chest pain or shortness of breath no nausea no vomiting no fever. Patient is comfortable History Past medical history: Reports: Hypertension, Dyslipidemia. Family history: Denies: Diabetes, Heart disease. Smoking status for patients 13 years old or olde r: Former Smoker Date last smoked: 06/01/92 Packs per day: 5 Years smoked: 15 Pack years: 75 Medication/Allergy-Vaccine Hx Allergies: Coded Allergies: No Known Drug Allergies (04/27/19) Uncoded Allergies: ALL RAW FRUIT (Severe, MOUTH/TONGUE SWELLING/ITC DEBI 08/24/14) Review of Systems All systems rev neg: except as marked (L arm dis comfort) Physical Exam VS/I O Vital Signs: Date Time Temp Pulse Resp B/P B/P Pulse O2 O2 F low FiO2 Mean Ox Delivery Rate 09/13 1544 98.4 60 14 148/76 100.5 93 Room air 09/13 0729 98.0 51 20 186/85 94 09/13 0723 98.0 51 20 186/85 93 Room air PATIENT WEIGHT: Weight (lb): 220 Weight (oz): 7.4 Weight (kg): 100.000 General appearance: awake Head/Eyes: atraumatic ENT: normal nose Neck: supple Cardiovascular: regular rate rhythm Respiratory: clear to auscultation Abdomen/GI: soft Genitourinary: deferred Extremities: moves all Musculoskeletal: full range of motion Neuro/CALCINER 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 HELPER: 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 Skin: dry, intact Lymphatic: no lymphadenopathy Results Findings/Data: Laboratory Tests: 09/13 709 Chemistry Sodium (134 - 147 mmol/L) 133 L Potassium (3.4 - 5.0 mmol/L) 4.0 Chloride (100 - 108 mmol/L) 97 L Carbon Dioxide (21 - 32 mmol/L) 31 Anion Gap (4.0 - 15.0 GAP calc) 5.0 BUN (7 - 18 MG/DL) 9 Creatinine (0.6 - 1.0 MG/DL) 0.8 Glomerular Filtr Rate (>60 estGFR) >=60 max est imate Glucose (70 - 110 MG/DL) 101 Calcium (8.5 - 10.1 MG/DL) 9.6 Magnesium (1.8 - 2.4 MG/DL) 1.8 Total Bilirubin (0.2 - 1.2 MG/DL) 0.70 AST (15 - 37 Unit/L) 21 ALT (12 - 78 Unit/L) 18 Total Alk Phosphatase (45 - 117 Unit/L) 75 Total Protein (6.4 - 8.2 G/DL) 7.8 Albumin (3.4 - 5.0 G/DL) 4.0 Globulin (GM/dL) 3.8 Albumin/Globulin Ratio (1.2 - 2.2 RATIO) 1.1 L Triglycerides (0 - 150 MG/DL) 141 Cholesterol (133 - 200 MG/DL) 237 H LDL Cholesterol Measurd (0 - 129 MG/DL) 171 H Non-HDL Cholesterol (<130 mg/dL) 188 H HDL Cholesterol (40 - 59 MG/DL) 49 LDL/HDL Ratio (1.48 - 3.22 Avg Ratio) 3.48 H Cholesterol/HDL Ratio (0 RATIO) 4.84 Coagulation INR (0.8 - 1.2 INR Unit) 1.08 PTT (Lyman) (26 - 35 SECONDS) 31.2 PT Patient/Control Mix (9.3 - 12.9 SECONDS) 12. 0 Hematology WBC (3.5 - 11.0 K/mm3) 9.2 RBC (4.70 - 6.10 M/mm3) 4.82 Hgb (10.4 - 14.9 G/DL) 14.9 Hct (31.5 - 44.1 %) 44.9 H MCV (84.5 - 98.6 Fl) 93.2 MCH (27.0 - 34.2 pg) 30.9 MCHC (31.5 - 34.0 G/DL) 33.2 RDW (11.5 - 14.5 SD) 13.2 Plt Count (150 - 450 K/mm3) 301 MPV (7.0 - 10.5 fL) 8.90 Neut % (Auto) (40 - 76 %) 67.6 Lymph % (Auto) (20.5 - 51.1 %) 20.9 Gem % (Auto) (1.7 - 9.3 %) 8.1 Eos % (Auto) (0.0 - 6.0 %) 2.3 Baso % (Auto) (0.0 - 2.0 %) 0.8 Neut # (Auto) (1.8 - 7.6 K/mm3) 6.3 Lymph # (Auto) (0.6 - 3.2 K/mm3) 1.9 Gem # (Auto) (0.3 - 1.1 K/mm3) 0.8 Eos # (Auto) (0.0 - 0.4 K/mm3) 0.2 Baso # (Auto) (0.0 - 0.1 K/mm3) 0.1 Abs Immat Gran (auto) (0.00 - 0.03 x10 3/uL) 0. 03 Add Manual Diff (CRITERIA DIFF/SCN) NO Immature Gran % (0.0 - 5.0 %) 0.3 Nucleated RBC % (0.0 - 1.0 /100WBC%) 0.0 Serology SARS-CoV-2 Ag (Rapid) (Negative) NEGATIVE Radiology data: Recent Impressions: RADIOLOGY - XR CHEST 1 V 09/13 8678 Report Impression - Status: SIGNED Entered: 09/13/2022 1555 IMPRESSION: 1. No acute cardiopulmonary changes noted. Impression By: [email or web address] Maurilio Christine M.D. Diagnosis, Assessment Plan Code Status/Resusc. Discussion Resuscitation discussion: Discussed with: patient Code status: full code Free Text DxA P Notes Free Text DxA P Notes: S/p pacemaker Hypertension Dyslipidemia Hypothyroidism Chronic back pain Plan Tolerated the procedure well,, Continue Cymbalta , losartan, Synthroid, gabapentin, overnight observation and outpatient follow-up with Dr. Stratton Adv car eplan - full code DVT prophylaxis - SCDs Electronically Signed by Chad Whittington MD on 0 09/13/22 at 1604 RPT #: [id number] END OF REPORT 2022-09-13 14:56:00-00:00 [id number] [facility] [id number] [place] [address] PATIENT NAME: DELFINA GORDON ADMIT DATE: 09/13/22 ACCOUNT NO: [id number] ROOM NO: [facility] AGE: 77 REPORT TYPE: eELECTROCARDIOGRAM SEX: F ADMITTING PHYSICIAN: Chad Whittington MD ATTENDING PHYSICIAN: Chad Whittington MD Order: [id number] Test Reason : POST OP Test Date/Time Stamp: ThuSep 13 2022 14:56:52 Blood Pressure : / mmHG Vent. Rate : 060 BPM Atrial Rate : 060 BPM P-R Int : 224 ms QRS Dur : 142 ms QT Int : 478 ms P-R-T Axes : 000 -53 129 degree s QTc Int : 478 ms Atrial-paced rhythm with prolonged AV conduction Left axis deviation Left bundle branch block Abnormal ECG When compared with ECG of 13-SEP-2022 07:13, Electronic atrial pacemaker has replaced Sinus r hythm T wave inversion less evident in Anterior leads Confirmed by MAYURI STRATTON ([id number]) on 09/13/2022 6:30:02 PM Referred By: Mayuri Stratton Confirmed by:MAYURI SPARKS at 1830 PATIENT NAME: DELFINA GORDON ACCOUNT #: [id number] 2022-09-13 14:26:00-00:00 [id number] [address] PATIENT NAME: DELFINA GORDON ADMIT DATE: 09/13/22 ACCOUNT NO: [id number] ROOM NO: [facility] AGE: 77 REPORT TYPE: CARDIAC CATHETERIZATION REPORT SEX: F ADMITTING PHYSICIAN: Chad Whittington MD ATTENDING PHYSICIAN: Chad Whittington MD PROCEDURE DATE: 09/13/2022 SCALE CLERK: Mayuri Stratton MD. TITLE OF THE PROCEDURE: Dual chamber permanent p acemaker implantation, MRI compatible. INDICATION FOR THE PROCEDURE: Symptomatic bradyc ardia, symptomatic sick sinus syndrome. ESTIMATED BLOOD LOSS: Minimal. COMPLICATIONS: None. CONTRAST: None. ANESTHESIA: Conscious sedati on with Versed and fentanyl, 1% lidocaine for local anesthesia. FINAL DIAGNOSIS: Successful MRI compatible dual- chamber permanent pacemaker implantation. DISPOSITION: Observation overnight. PROCEDURE IN DETAIL: Please see enclosed report in the chart. Dictated By: Mayuri Stratton MD Date Dictated: 09/13/2022 14:26:20 Date Transcribed: 09/13/2022 15:20:30 JUSTYN/GREGORY Receipt ID: [id number] Authenticated by Mayuri Stratton MD On 08/30 06:24:43 PM at 0624 PATIENT NAME: DELFINA GORDON ACCOUNT #: [id number] 2022-09-13 07:13:00-00:00 [id number] [address] PATIENT NAME: DELFINA GORDON ADMIT DATE: 09/13/22 ACCOUNT NO: [id number] ROOM NO: AGE: 77 REPORT TYPE: eELECTROCARDIOGRAM SEX: F ADMITTING PHYSICIAN: ATTENDING PHYSICIAN: Mayuri Stratton MD Order: [id number] Test Reason : PREOP Test Date/Time Stamp: ThuSep 13 2022 07:13:59 Blood Pressure : / mmHG Vent. Rate : 051 BPM Atrial Rate : 051 BPM P-R Int : 200 ms QRS Dur : 146 ms QT Int : 504 ms P-R-T Axes : 067 -41 137 degree s QTc Int : 464 ms Sinus bradycardia Left axis deviation Left bundle branch block Abnormal ECG When compared with ECG of 28-APR-2012 18:47, T wave inversion now evident in Anterior leads Confirmed by MAYURI STRATTON ([id number]) on 09/13/2022 12:17:34 PM Referred By: Mayuri Stratton Confirmed by:MAYURI SPARKS at 1217 PATIENT NAME: DELFINA GORDON 2022-09-12 07:05:00-00:00 [id number] [place] [address] PATIENT NAME: DELFINA GORDON ADMIT DATE: ACCOUNT NO: [id number] ROOM NO: AGE: 77 REPORT TYPE: HISTORY AND PHYSICAL SEX: F ADMITTING PHYSICIAN: ATTENDING PHYSICIAN: Mayuri Stratton MD Cardiolo gy PATIENT NAME: DELFINA GORDON ADMIT DATE:09/13/2022 ADMISSION DATE: 09/13/2022 11:30:00 SCALE CLERK: Mayuri Stratton MD. REASON FOR ADMISSION: Symptomatic bradycardia du e to sick sinus syndrome for dual chamber permanent pacemaker implantation. HISTORY OF PRESENT ILLNESS: Delfina is a 77-year- old lady who I have been following in my clinic since 2014. The patient h as a long history of bradycardia and sick sinus syndrome that has bee n getting worse. She has been off beta-farideh therapy barbara t she took in the past for PVCs and hypertension and supraventricular tachycardia, and she has been o ff it for many months. She continues to be significantly bradycardic. Her l ast Holter monitor shows an average heart rate of 48, lowest heart rate of 3 1, eight short pauses and her resting heart rate in my office was 47. The ranjit ent has been getting more and more symptomatic with the br adycardia with dyspnea, tiredness, occasional chest discomfort. She has not had any tachycardia prob lems lately. The patient also possibly needs left knee surgery, so she will not be cleared without permanent pacemaker implantation due to the extrem e bradycardia. The patient is here for a dual chamber permanent pacemaker implantation. She has a baseline also of left bundle-branch block and occasional PVCs. Th ere is no history of active coronary artery disease. There is no history of TIAs or strokes or congestive heart failure. Her last echocardiogram, of 2021 showed hypertensive changes, normal ejection fra ction, mildly dilated aorta, jltx-yv-oonwywrm mitral regurgitation and mild pulmo nary hypertension. Her last nuclear stress test was negative for ischemia in 2018. PAST MEDICAL HISTORY: Remark able for hypertension, hyperlipidemia, bradycardia, hypothyroidism, anxiety, lum bar disk disease, lumbar radiculopathy; sleep apnea, on CPAP; osteoarthritis, Parkinson's disease, vi tamin D deficiency and allergies. PAST SURGICAL HISTORY: Tonsillectomy, pa rtial hysterectomy, partial right knee replacement, right hip replacement, carp al tunnel both hands, colon resection, inguinal hernia repair, lower back surgery twice and cholecystectomy. ALLERGIES: CODEINE CAUSES SI DE EFFECTS; PROTEIN, MOLD AND GRASS POLLEN, SHE HAD SOME REACTIONS TO THOSE, NO OTHER MEDICATIONS. Past hospitalizations were i 2019 related to right and left popliteal deep vein thrombosis. She was placed on blood thinners for a brief time and then taken PATIENT NAME: DELFINA GORDON ACCOUNT #: L [id number] off due to nosebleeds. MEDICATIONS: Levothroid 112 mcg daily, Xanax 0.5 mg daily, magnesium 250 mg b.i.d., gabapentin 300 mg b.i.d., losartan 50 mg daily. SOCIAL HISTORY: There is no history of smoking, alcohol or street drug use. 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 FAMILY HISTORY: Negative for premature atheroscl erosis. REVIEW OF SYSTEMS: Remarkable for the above in a ddition to allergies to insomnia, sleep apnea, generalized weakness, non specific cough, allergies, difficulty balancing, generalized weakness as me ntioned above. No acute GI or symptoms. No TIAs or strokes. PHYSICAL EXAMINATION: GENERAL: Reveals a pleasant elderly lady, in no acute distress. VITAL SIGNS: Blood pressure 115/66, puls e 49 and bradycardic, respiratory rate 16 and unlabored, temperature afebrile. HEENT: Head atraumatic, normocephalic. Eyes and ENT examination within normal for age. NECK: Supple. No jugular venous distention, brui ts or lymphadenopathy. Normal upstroke. LUNGS: Clear and resonant. HEART: Bradycardic. Regular rate and rhy thm, II/ systolic ejection murmur at the left lower sternal border. No gallops. ABDOMEN: Soft, obese, no tenderness, no organome carrillo, no masses or bruits. EXTREMITIES: 2+ distal pulses. No edema, cyanosi s or clubbing. NEUROLOGIC: Alert and oriented x3. The examinati on appears to be nonfocal. LABORATORY AND DIAGNOSTIC DATA: Pending. Noninva sive cardiac workup enclosed. IMPRESSION AND PLAN: This is a 77-year-old lady with symptomatic sick sinus syndrome with bradycardia, who is here for dual chamber permanent pacemaker implantation. The patient has hypertensive heart disease. No active coronary artery disease, has had hist ory of PVCs and supraventricular tachycardia in the past, none recently. She has a baseline of left bundle-branch block. The patient is here today for dual chamber permanent pacemaker implantation. The recommendation is to proceed with the above-mentioned procedure. The patient is right handed, so proceed on the left side. The r isks and benefits of the planned procedures were discussed in detail with the patient and available family members and she is willing to proceed. Re st as per orders. Dictated By: Mayuri Stratton MD Date Dictated: 09/12/2022 07:05:59 Date Transcribed: 09/12/2022 08:18:55 Michelle/GREGORY Receipt ID: [id number] Authenticated and Edited by Mayuri Stratton MD On 09/12/22 11:02:23 AM PATIENT NAME: DELFINA GORDON ACCOUNT #: [id number] at 1105 PATIENT NAME: DELFINA GORDON ACCOUNT #: [id number]
[2022-11-04] MEDS ORDERED: MORPHINE 2 MG/ML SYR ONE (07:50)
[2022-11-04] MEDS ORDERED: dexAMETHasone 10 MG/ML VIAL ONE (07:51)
[2022-11-04] MEDS ORDERED: ONDANSETRON 4 MG/2 ML VIAL ONE (07:51)
--- NOTE | 2022-11-04 07:55 | RAD REPORT ---
EXAM DESCRIPTION: CT - CTHCSPWOC - 11/04/2022 7:41 am CLINICAL HISTORY: head and neck pain, radiates to shoulders COMPARISON: Brain W/Wo Cont dated 11/22/2021 TECHNIQUE: Axial thin cut noncontrast CT images of the head were obtained. Axial thin cut noncontrast CT images of the cervical spine were obtained. Multiplanar reformatted images were generated and reviewed. All CT scans are performed using dose optimization technique as appropriate and may include automated exposure control or mA/KV adjustment according to patient size. FINDINGS: CT HEAD WITHOUT CONTRAST: No acute hemorrhage, hydrocephalus or extra-axial collection is identified.Left parietal small region of encephalomalacia, stable, most suggestive of sequelae of remote ischemia.No areas of brain edema or midline shift. Small extra-axial ossified lesion along the left anterior clinoid process, stable, and may represent a small ossified meningioma. The paranasal sinuses and mastoids are clear.The calvarium is intact. CT CERVICAL SPINE WITHOUT CONTRAST: No fracture or subluxation.Minimal degenerative changes along the endplates and uncovertebral joints, with mild neural foraminal narrowing bilaterally noted at C5-6.No prevertebral soft tissues swelling is identified. IMPRESSION: No acute traumatic intracranial or cervical spine findings. Stable small region of encephalomalacia in the high left parietal lobe, most suggestive of sequelae o f remote ischemia. Other findings as above.
[2022-11-04 08:59] LABS: Absolute Lymphocytes (CBC) 1.7 K/uL (0.7-4.9); Hematocrit 39.5 % (36.0-45.0); Lymphocytes % 21.1 % (15.3-44.8); MCV 94.7 fL (80-100); RBC Red Blood Cell Count 4.17 M/uL (3.86-4.86)
[2022-11-04 09:01] LABS: Protime INR 1.15
[2022-11-04 09:08] LABS: Potassium 4.2 mEq/L (3.5-5.1)
--- NOTE | 2022-11-04 09:14 | ER ---
Nurse's Notes [facility] Name: Delfina Vinson Age: 77 yrs Sex: Female : 1945 Arrival Date: 11/04/2022 Time: 07:07 Bed 13 Private MD: Dwayne Ortiz E Diagnosis: Cervical disc disorder with radiculopathy Presentation: 11/04 07:08 Chief complaint: Patient states: pain that began to neck 2 weeks ago, radiating down to aa5 left arm and now to right arm as well. Pt also reports pain to legs, pt states "I just hurt all over now". 07:08 Onset of symptoms was October 2022. aa5 07:08 Acuity: BILL 3 aa5 07:08 Coronavirus screen: At this time, the client does not indicate any symptoms associated aa5 with coronavirus-19. 07:08 Method Of Arrival: Wheelchair aa5 07:08 Ebola Screen: Patient denies travel to an Ebola-affected area in the 21 days before aa5 illness onset. Initial Sepsis Screen: Does the patient meet any 2 criteria? No. Patient's initial sepsis screen is negative. Does the patient have a suspected source of infection? No. Patient's initial sepsis screen is negative. Risk Assessment: Do you want to hurt yourself or someone else? Patient reports no desire to harm self or others. Triage Assessment: 07:30 General: Appears distressed, uncomfortable, obese, Behavior is cooperative, appropriate bp for age, anxious. Pain: Complains of pain in head and back. EENT: No deficits noted. Neuro: No deficits noted. Cardiovascular: No deficits noted. Respiratory: No deficits noted. GI: No signs and/or symptoms were reported involving the gastrointestinal system. : No signs and/or symptoms were reported regarding the genitourinary system. Derm: No deficits noted. Musculoskeletal: No deficits noted. Historical: - Allergies: 07:25 No Known Allergies; aa5 - Home Meds: 07:28 Synthroid 100 mcg Oral tab 1 tab once daily [Active]; gabapentin 300 mg Oral cap 2 caps aa5 3 times per day [Active]; Xanax 1 mg oral tablet once [Active]; losartan 50 mg oral tablet once [Active]; sertraline 25 mg oral tablet once [Active]; Zyrtec 10 mg Oral capsule [Active]; psyllium husk (bulk) [Active]; magnesium oxide 400 mg magnesium Oral tablet daily [Active]; tramadol 50 mg Oral tablet every 6 hours [Active]; Zofran Oral 4 mg as needed [Active]; 09:55 olmesartan 20 mg Oral once daily [Active]; bp - PMHx: 07:25 colon cancer; Hypertension; Hypothyroidism; shingles; Parkinson's disease; Anxiety; aa5 - PSHx: 07:25 Appendectomy; back surgery x 2; Cholecystectomy; colon resection; eye sx; right hip aa5 placement; Right knee replacement; Tonsillectomy; Total abdominal hysterectomy; Pacemaker September 09, 2022; - Immunization history:: Adult Immunizations unknown. - Social history:: Smoking status: Patient denies any tobacco usage or history of. - Family history:: not pertinent. - Hospitalizations: : No recent hospitalization is reported. Screenin:30 [facility] ED Fall Risk Assessment (Adult) History of falling in the last 3 months, bp including since admission No falls in past 3 months (0 pts). Abuse screen: Denies threats or abuse. Denies injuries from another. Nutritional screening: No deficits noted. Tuberculosis screening: No symptoms or risk factors identified. Assessment: 07:30 General: SEE TRIAGE NOTE. bp 08:29 Reassessment: Patient appears in no apparent distress at this time. No changes from bp previously documented assessment. PT RETURNED FROM CT. Vital Signs: 07:08 BP 170 / 100; Pulse 86; Resp 20 S; Temp 98(TE); Pulse Ox 98% on R/A; Weight 101.6 kg aa5 (M); 08:28 BP 141 / 69; Pulse 65; Resp 21; Pulse Ox 92% ; bp 09:53 BP 126 / 54; Pulse 70; bp ED Course: 07:07 Patient arrived in ED. am2 07:08 Dwayne Ortiz MD is Private Physician. am2 07:08 James Lares MD is Attending Physician. rn 07:08 Arm band placed on Patient placed in an exam room, on a stretcher. aa5 07:09 Clemente Lr, MAURI is Primary Nurse. bp 07:27 Triage completed. aa5 07:30 Patient has correct armband on for positive identification. Bed in low position. Call bp light in reach. Side rails up X2. 07:42 CT Head C Spine In Process Unspecified. EDMS 08:08 Inserted saline lock: 22 gauge in right forearm, using aseptic technique. Blood bp collected. 09:54 No provider procedures requiring assistance completed. bp 09:55 IV discontinued. bp Administered Medications: 08:08 Drug: morphine IVP or IV 2 mg Route: IVP; Infused Over: 4 mins; Site: right forearm; bp 08:08 Drug: Decadron - Dexamethasone IVP 10 mg Route: IVP; Site: right forearm; bp Medication: 09:56 VIS not applicable for this client. bp Outcome: 09:13 Discharge ordered by . rn 09:54 Condition: stable bp 09:54 Discharge instructions given to patient, Demonstrated understanding of instructions, bp follow-up care. 09:55 Discharged to home bp 09:57 Patient left the ED. bp Signatures: Dispatcher [employer] EDMS James Lares MD MD rn Calderon, Audri RN RN aa5 Kerry Georges am2 Clemente Lr, RN RN bp
--- NOTE | 2022-11-04 09:14 | EDPHYS ---
Physician Documentation [facility] Name: Delfina Vinson Age: 77 yrs Sex: Female : 1945 Arrival Date: 11/04/2022 Time: 07:07 Bed 13 Private MD: Dwayne Ortiz E ED Physician James Lares HPI: 11/04 08:27 This 77 yrs old Female presents to ER via Wheelchair with complaints of neck pain. rn 08:27 The patient or guardian complains of pain. The symptoms are located diffusely. Onset: rn The symptoms/episode began/occurred 2 week(s) ago. Context: The problem was sustained at an unknown location, The neck injury/problem resulted from from unknown cause. Associated signs and symptoms: Pertinent positives: numbness, Paresthesias tingling, Pertinent negatives: fever, bladder incontinence, bowel incontinence. The pain radiates to the right arm and left arm. Modifying factors: The symptoms are alleviated by nothing. the symptoms are aggravated by movement. Severity of symptoms: At their worst the symptoms were moderate, in the emergency department the symptoms are unchanged. The patient has experienced similar episodes in the past. The patient has been recently seen by a physician:. Pt reports neck pain, was on right side, now traveling down left side, radiates down arms, with intermittent tingling. No weakness. No injury. No fall. NO chest pain/sob/abd pain. Reports Dr. Mcrae did recent MRI cspine but does not know results. Prescribed muscle relaxer, doesn't feel like its helping.. Historical: - Allergies: 07:25 No Known Allergies; aa5 - Home Meds: 07:28 Synthroid 100 mcg Oral tab 1 tab once daily [Active]; gabapentin 300 mg Oral cap 2 caps aa5 3 times per day [Active]; Xanax 1 mg oral tablet once [Active]; losartan 50 mg oral tablet once [Active]; sertraline 25 mg oral tablet once [Active]; Zyrtec 10 mg Oral capsule [Active]; psyllium husk (bulk) [Active]; magnesium oxide 400 mg magnesium Oral tablet daily [Active]; tramadol 50 mg Oral tablet every 6 hours [Active]; Zofran Oral 4 mg as needed [Active]; 09:55 olmesartan 20 mg Oral once daily [Active]; bp - PMHx: 07:25 colon cancer; Hypertension; Hypothyroidism; shingles; Parkinson's disease; Anxiety; aa5 - PSHx: 07:25 Appendectomy; back surgery x 2; Cholecystectomy; colon resection; eye sx; right hip aa5 placement; Right knee replacement; Tonsillectomy; Total abdominal hysterectomy; Pacemaker September 09, 2022; - Immunization history:: Adult Immunizations unknown. - Social history:: Smoking status: Patient denies any tobacco usage or history of. - Family history:: not pertinent. - Hospitalizations: : No recent hospitalization is reported. ROS: 08:27 Constitutional: Negative for fever, chills, and weight loss, Eyes: Negative for injury, rn pain, redness, and discharge, Neck: Negative for injury Cardiovascular: Negative for chest pain, palpitations, and edema, Respiratory: Negative for shortness of breath, cough, wheezing, and pleuritic chest pain, Abdomen/GI: Negative for abdominal pain, nausea, vomiting, diarrhea, and constipation, Back: Negative for injury and pain, MS/Extremity: Negative for injury and deformity, Skin: Negative for injury, rash, and discoloration, Neuro: Negative for weakness, and seizure. Exam: 08:23 ECG was reviewed by the Attending Physician. rn 08:27 Constitutional: This is a well developed, well nourished patient who is awake, alert, rn and in no acute distress. Head/Face: Normocephalic, atraumatic. Neck: No midline bony tenderness Cardiovascular: Regular rate and rhythm. No pulse deficits. Respiratory: No increased work of breathing, no retractions or nasal flaring. Abdomen/GI: Soft, non-tender Skin: Warm, dry with normal turgor. Normal color with no rashes, no lesions, and no evidence of cellulitis. MS/ Extremity: Pulses equal, no cyanosis. Neurovascular intact. Painful ROM bilateral shoulders. Neuro: Awake and alert, GCS 15, oriented to person, place, time, and situation. Cranial nerves II-XII grossly intact. Motor strength 5/5 in all extremities. Sensory grossly intact. Vital Signs: 07:08 BP 170 / 100; Pulse 86; Resp 20 S; Temp 98(TE); Pulse Ox 98% on R/A; Weight 101.6 kg aa5 (M); 08:28 BP 141 / 69; Pulse 65; Resp 21; Pulse Ox 92% ; bp 09:53 BP 126 / 54; Pulse 70; bp MDM: 07:08 Patient medically screened. rn 09:12 Differential diagnosis: arthritis, Cervical Disc Herniation Cervical Discogenic Pain rn Cervical Facet Syndrome Cervical Raiculopathy Cervical Spondylosis cervical strain, Osteoarthritis torticollis. Data reviewed: vital signs, nurses notes, lab test result(s), radiologic studies, CT scan, MRI, and as a result, I will discharge patient. Counseling: I had a detailed discussion with the patient and/or guardian regarding: the historical points, exam findings, and any diagnostic results supporting the discharge/admit diagnosis, lab results, radiology results, the need for outpatient follow up, to return to the emergency department if symptoms worsen or persist or if there are any questions or concerns that arise at home. Response to treatment: the patient's symptoms have mildly improved after treatment, and as a result, I will discharge patient. Special discussion: I discussed with the patient/guardian in detail that at this point there is no indication for admission to the hospital. It is understood, however, that if the symptoms persist or worsen the patient needs to return immediately for re-evaluation. 11/04 07:24 Order name: CBC with Diff; Complete Time: 09:12 rn 11/04 07:24 Order name: Basic Metabolic Panel; Complete Time: 09:12 rn 11/04 07:24 Order name: Protime (+inr); Complete Time: 09:03 rn 11/04 07:24 Order name: Ptt, Activated; Complete Time: 09:03 rn 11/04 07:24 Order name: CT Head C Spine; Complete Time: 07:56 rn 11/04 07:24 Order name: EKG; Complete Time: 07:25 rn 11/04 07:24 Order name: IV Start; Complete Time: 08:08 rn 11/04 07:24 Order name: EKG - Nurse/Tech; Complete Time: 08:08 rn 11/04 08:33 Order name: Labs - recollect needed: recollect green and blue top; Complete Time: 08:54 bd 11/04 08:36 Order name: Labs - recollect needed: recollect lavender top; Complete Time: 08:54 bd EC:23 Rate is 65 beats/min. Rhythm is regular. Left axis deviation noted. QRS is positive in rn lead I and negative in lead aVF. QRS interval is prolonged. T waves are Normal. No ST changes noted. Clinical impression: Atrial paced rhythm. Interpreted by me. Reviewed by me. Administered Medications: 08:08 Drug: morphine IVP or IV 2 mg Route: IVP; Infused Over: 4 mins; Site: right forearm; bp 08:08 Drug: Decadron - Dexamethasone IVP 10 mg Route: IVP; Site: right forearm; bp Disposition Summary: 11/04/22 09:13 Discharge Ordered Location: Home rn Problem: an ongoing problem rn Symptoms: have improved rn Condition: Stable rn Diagnosis - Cervical disc disorder with radiculopathy rn Followup: rn - With: Private Physician - When: As needed - Reason: Recheck today's complaints, Re-evaluation by your physician Discharge Instructions: - Discharge Summary Sheet rn - Cervical Radiculopathy rn Forms: - Medication Reconciliation Form rn - Thank You Letter rn - 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
[2022-11-04 10:12] VITALS: TEMP 98
[2022-11-04 10:17] VITALS: O2SAT 92
[2022-11-04 10:23] VITALS: BP 126/54
--- NOTE | 2022-11-05 07:18 | EKG ---
Test Date: 2022-11-04 Test Time: 07:50:08 Finance Business Partner: BP MEASUREMENT RESULTS: Intervals: Rate: 65 TN: 244 QRSD: 140 QT: 470 QTc: 488 Margaret: P: -38 TN: 244 QRS: -41 T: 114 INTERPRETIVE STATEMENTS: Atrial-paced rhythm with prolonged AV conduction Left axis deviation Left bundle branch block Abnormal ECG Compared to ECG 04/13/2000 13:14:00 Left-axis deviation now present Sinus rhythm no longer present Electronically Signed On 11-05-22 07:14:18 CDT by Wale Snyder
== END 2022-11-04 09:57 | disposition home or self-care (01) ==
LOC: ER 07:07
DX: M50.10 Cervical disc disorder with radiculopathy, unspecified cervical region (principal); I10 Essential (primary) hypertension; E03.9 Hypothyroidism, unspecified; G20 Parkinson's disease; Z95.0 Presence of cardiac pacemaker
CPT/HCPCS: 93005; 85025; 80048; 36415; 85610; 85730; 70450; 72125; 96375; 96374; 99284; J1100; J2270; J2405

== ENCOUNTER 2025-01-14 05:29 | Emergency (ER) | payer OTHER ==
[2025-01-14 06:04] LABS: Absolute Lymphocytes (CBC) 1.6 K/uL (0.7-4.9); Hematocrit 32.9 % (36.0-45.0); Hemoglobin 10.6 g/dL (12.0-15.0); MCH 31.3 pg (27.0-35.0); MCHC 32.3 g/dL (32.0-36.0); MCV 96.9 fL (80-100); MPV 7.7 fL (7.6-11.3); Nucleated RBC Absolute Count 0.0 (0-0); Nucleated Red Blood Cells % 0.1 % (0-0); RBC Red Blood Cell Count 3.39 M/uL (3.86-4.86); White Blood Count 13.20 thou/uL (4.3-10.9)
[2025-01-14 06:13] LABS: PT Prothrombin Time 14.0 SECONDS (10-13.0); Protime INR 1.25
--- NOTE | 2025-01-14 06:18 | ER ---
Nurse's Notes [facility] Name: Delfina Vinson Age: 79 yrs Sex: Female : 1945 Arrival Date: 01/14/2025 Time: 05:29 Bed 4 Private MD: Diagnosis: Syncope;Hypotension;Anemia, unspecified;acute kidney injury Presentation: 01/14 05:52 Chief complaint: Patient states: Pt to ED via EMS c/o multiple syncopal episodes cc6 throughout the day. Pt had recent heart surgery and was discharged home yesterday. Pt denies chest pain. Coronavirus screen: Client denies travel out of the [place] in the last 14 days. At this time, the client does not indicate any symptoms associated with coronavirus-19. Ebola Screen: Patient negative for fever greater than or equal to 101.5 degrees Fahrenheit, and additional compatible Ebola Virus Disease symptoms Patient denies exposure to infectious person. Patient denies travel to an Ebola-affected area in the 21 days before illness onset. No symptoms or risks identified at this time. No acute neurological deficit is noted. 05:52 Method Of Arrival: EMS: [facility] cc6 05:59 Initial Sepsis Screen: Does the patient meet any 2 criteria? Systolic BP < 90 mmHg. No. cc6 Patient's initial sepsis screen is negative. Does the patient have a suspected source of infection? No. Patient's initial sepsis screen is negative. Risk Assessment: Do you want to hurt yourself or someone else? Patient reports no desire to harm self or others. Onset of symptoms was January 14, 2025. 05:59 Acuity: BILL 3 cc6 Triage Assessment: 05:59 The onset of the patients symptoms was more than six hours ago. General: Appears in no cc6 apparent distress. uncomfortable, Behavior is calm, cooperative, appropriate for age. Pain: Denies pain. Neuro: Level of Consciousness is awake, alert, obeys commands, Oriented to person, place, time, situation, Appropriate for age Reports a syncopal episode. Historical: - Allergies: 06:14 Melatonin; cc6 - Immunization history:: Adult Immunizations up to date, Adult Immunizations up to date. - Infectious Disease History:: Denies. Denies. - Social history:: Smoking status: unknown Smoking status: unknown. - History obtained from: spouse. Screenin:07 [facility] ED Fall Risk Assessment (Adult) History of falling in the last 3 months, cc6 including since admission No falls in past 3 months (0 pts) Confusion or Disorientation No (0 pts) Intoxicated or Sedated No (0 pts) Impaired Gait Yes (1 pt) Mobility Assist Device Used Yes (1 pt) Altered Elimination No (0 pt) Score/Fall Risk Level 3 or more points = High Risk Maintained a safe environment, Hourly rounding (assess needs \T\ fall precautionary measures) done. Abuse screen: Denies threats or abuse. Denies injuries from another. Nutritional screening: No deficits noted. Tuberculosis screening: No symptoms or risk factors identified. Never had TB. Assessment: 06:07 General: Appears in no apparent distress. Behavior is calm, cooperative, appropriate cc6 for age. Pain: Denies pain. Neuro: No deficits noted. Level of Consciousness is awake, alert, obeys commands, Oriented to person, place, time, situation, Appropriate for age. Cardiovascular: Reports syncope, Capillary refill Patient's skin is warm and dry. Rhythm is A-V sequential pacer. Respiratory: Airway is patent. GI: No signs and/or symptoms were reported involving the gastrointestinal system. : No signs and/or symptoms were reported regarding the genitourinary system. 07:42 Reassessment: Patient and/or family updated on plan of care and expected duration. Pain ar8 level reassessed. Patient is alert, oriented x 3, equal unlabored respirations, skin warm/dry/pink. Neuro: No deficits noted. Level of Consciousness is awake, alert, obeys commands, Oriented to person, place, time, situation. Cardiovascular: Patient's skin is warm and dry. Rhythm is A-V sequential pacer. Respiratory: Airway is patent Respiratory effort is even, unlabored, Respiratory pattern is regular, symmetrical, SOB noted with exertion. 07:56 Reassessment: Attempted to call patient report to [facility] ER, unable to give report. No one ar8 answered the phone. [phone]. 08:19 Reassessment: Attemtped to call patient report to [facility] ED, unable to give ar8 report. Placed on hold for \R\10 minutes. . 08:58 Reassessment: Attempted to call report, no one available to take report. Left call back ar8 number and name with Rukhsana from [facility] ER. . Vital Signs: 05:52 BP 75 / 62; Pulse 81; Resp 17; Temp 98.5; Pulse Ox 94% on NC; FiO2 2 %; Weight 87.09 cc6 kg; Height 5 ft. 5 in. ; Pain 0/10; 06:05 BP 85 / 63; Pulse 80; Pulse Ox 97% on 2 lpm NC; cc6 06:12 BP 83 / 67; Pulse 78; Resp 17; Pulse Ox 100% on 2 lpm NC; cc6 06:19 BP 79 / 59; Pulse 80; Resp 17; Pulse Ox 95% on 2 lpm NC; cc6 06:29 BP 93 / 58; Pulse 78; Resp 18; Pulse Ox 100% on 2 lpm NC; cc6 07:00 BP 85 / 59; Pulse 74; Resp 17; Pulse Ox 99% ; Pain 0/10; ar8 07:32 BP 93 / 53; Pulse 81; Resp 20; Pulse Ox 99% on 2 lpm NC; Pain 0/10; ar8 08:02 BP 91 / 59; Pulse 77; Resp 22; Pulse Ox 95% on 2 lpm NC; Pain 0/10; ar8 08:18 BP 90 / 56; Pulse 74; Resp 17; Pulse Ox 98% on 2 lpm NC; Pain 0/10; ar8 05:52 Body Mass Index 31.95 (87.09 kg, 165.1 cm) cc6 05:52 Pain Scale: Adult cc6 07:00 Pain Scale: Adult ar8 07:32 Pain Scale: Adult ar8 08:02 Pain Scale: Adult ar8 08:18 Pain Scale: Adult ar8 ED Course: 05:30 Patient arrived in ED. jj6 05:33 All Perez DO is Attending Physician. ms3 05:51 Marta Hernandez, RN is Primary Nurse. cc6 05:59 Arm band placed on left wrist. cc6 06:00 Triage completed. cc6 06:07 Patient has correct armband on for positive identification. Bed in low position. Call cc6 light in reach. Side rails up X2. 06:07 Accessed PICC line. cp4 06:07 No provider procedures requiring assistance completed. cc6 06:07 Inserted saline lock: 22 gauge in right wrist, using aseptic technique. Blood cc6 collected. Flushed with 10 mL NS. 06:10 XRAY Chest (1 view) In Process Unspecified. EDMS 06:[address] Dumont with Dr. Perez for patient consultation. eb 06:22 initiated a transfer with Odilia from the [facility] transfer center at the request of Dr. nahun Dumont. 06:36 administrative approval given by Odilia Banegas Rn/ patient has been accepted to [facility] ER/ Dr. Ildefonso Amado has accepted the patient in transfer/ report to be called to [phone]. 07:26 Assisted to bedside commode. ar8 08:26 Patient transferred, IV remains in place. ap3 08:27 Provided Education on: need for transfer. ap3 Administered Medications: 06:06 Drug: NS 0.9% IV 1000 ml IV at 1000 ml once; to be given as a bolus over 60 minutes cp4 Route: IV; Rate: 1000 ml; Site: left upper arm; 07:05 Follow up: Response: No adverse reaction; IV Status: Completed infusion; IV Intake: ar8 1000ml 07:39 Drug: NS 0.9% IV 1000 ml IV at 1 bolus Per protocol; to be given as a bolus over 60 ap3 minutes Route: IV; Rate: 1 bolus; Site: left upper arm; 08:26 Follow up: IV Status: Completed infusion; IV Intake: 1000ml ap3 Medication: 06:07 VIS not applicable for this client. cc6 Intake: 07:05 IV: 1000ml; Total: 1000ml. ar8 08:26 IV: 1000ml; Total: 2000ml. ap3 Outcome: 06:18 ER care complete, transfer ordered by . ms3 08:25 Transferred by ground EMS Note: [facility] ap3 08:25 Condition: good 08:25 Discharge instructions given to patient, family, Instructed on the need for transfer, 08:35 Patient left the ED. ap3 Signatures: Dispatcher [employer] EDMS Kerry Mcmahon, RN RN ap3 Marita Ca Marcus, DO DO ms3 Jeanne Sweeney Christina cp4 Marta Hernandez, RN RN cc6 Stanley Silverio RN RN ar8 Corrections: (The following items were deleted from the chart) 05:59 05:59 PMHx: Hypothyroidism; cc6 cc6 05:59 05:59 PMHx: Hypertension; cc6 cc6 05:59 05:59 PMHx: colon cancer; cc6 cc6 05:59 05:59 PMHx: shingles; cc6 cc6 05:59 05:59 PMHx: Parkinson's disease; cc6 cc6 05:59 05:59 PMHx: Anxiety; cc6 cc6 05:59 05:59 PSHx: eye sx; cc6 cc6 05:59 05:59 PSHx: right hip placement; cc6 cc6 05:59 05:59 PSHx: Tonsillectomy; cc6 cc6 05:59 05:59 PSHx: Total abdominal hysterectomy; cc6 cc6 05:59 05:59 PSHx: Cholecystectomy; cc6 cc6 05:59 05:59 PSHx: Appendectomy; cc6 cc6 05:59 05:59 PSHx: colon resection; cc6 cc6 05:59 05:59 PSHx: back surgery x 2; cc6 cc6 05:59 05:59 PSHx: Right knee replacement; cc6 cc6 05:59 05:59 PSHx: Pacemaker September 09, 2022; cc6 cc6 06:07 06:05 BP 85 / 63; Pulse 80bpm; Pulse Ox 97% Nasal Cannula FiO2 2%; cc6 cc6
--- NOTE | 2025-01-14 06:18 | EDPHYS ---
Physician Documentation [facility] Name: Delfina Vinson Age: 79 yrs Sex: Female : 1945 Arrival Date: 01/14/2025 Time: 05:29 Bed 4 Private MD: ED Physician All Perez HPI: 01/14 06:03 This 79 yrs old Female presents to ER via EMS with complaints of Weakness, Syncope. ms3 06:03 79-year-old female with past medical history of coronary artery disease status post ms3 bypass on December 20, hypertension, hyperlipidemia presents the emergency department for syncopal episodes that occur when standing up. Patient states she has had 4 episodes of attempting to stand and passing out. Patient states she has not fallen as her son and had a hold of her. Patient denies pain at this time. Patient states she had open heart surgery on December 20 at [facility] and was discharged on January 11.. Historical: - Allergies: 06:14 Melatonin; cc6 - Immunization history:: Adult Immunizations up to date, Adult Immunizations up to date. - Infectious Disease History:: Denies. Denies. - Social history:: Smoking status: unknown Smoking status: unknown. - History obtained from: spouse. ROS: 06:03 Constitutional: Negative for fever, and chills. Cardiovascular: Negative for chest ms3 pain, and palpitations. Respiratory: Negative for shortness of breath, cough, wheezing, and pleuritic chest pain, Abdomen/GI: Negative for abdominal pain, nausea, vomiting, diarrhea, and constipation, MS/Extremity: Negative for injury and deformity, Skin: Negative for injury, rash, and discoloration, Exam: 06:03 Constitutional: This is a well developed, well nourished patient who is awake, alert, ms3 and in no acute distress. Cardiovascular: Regular rate and rhythm with a normal S1 and S2. No gallops, murmurs, or rubs. Normal PMI, no JVD. No pulse deficits. Respiratory: Lungs have equal breath sounds bilaterally, clear to auscultation and percussion. No rales, rhonchi or wheezes noted. No increased work of breathing, no retractions or nasal flaring. Abdomen/GI: Soft, non-tender, with normal bowel sounds. No distension or tympany. No guarding or rebound. No evidence of tenderness throughout. 06:03 Skin: well healing sternum incision without drainage or erythema. 06:05 ECG was reviewed by the Attending Physician. ms3 Vital Signs: 05:52 BP 75 / 62; Pulse 81; Resp 17; Temp 98.5; Pulse Ox 94% on NC; FiO2 2 %; Weight 87.09 cc6 kg; Height 5 ft. 5 in. ; Pain 0/10; 06:05 BP 85 / 63; Pulse 80; Pulse Ox 97% on 2 lpm NC; cc6 06:12 BP 83 / 67; Pulse 78; Resp 17; Pulse Ox 100% on 2 lpm NC; cc6 06:19 BP 79 / 59; Pulse 80; Resp 17; Pulse Ox 95% on 2 lpm NC; cc6 06:29 BP 93 / 58; Pulse 78; Resp 18; Pulse Ox 100% on 2 lpm NC; cc6 07:00 BP 85 / 59; Pulse 74; Resp 17; Pulse Ox 99% ; Pain 0/10; ar8 07:32 BP 93 / 53; Pulse 81; Resp 20; Pulse Ox 99% on 2 lpm NC; Pain 0/10; ar8 08:02 BP 91 / 59; Pulse 77; Resp 22; Pulse Ox 95% on 2 lpm NC; Pain 0/10; ar8 08:18 BP 90 / 56; Pulse 74; Resp 17; Pulse Ox 98% on 2 lpm NC; Pain 0/10; ar8 05:52 Body Mass Index 31.95 (87.09 kg, 165.1 cm) cc6 05:52 Pain Scale: Adult cc6 07:00 Pain Scale: Adult ar8 07:32 Pain Scale: Adult ar8 08:02 Pain Scale: Adult ar8 08:18 Pain Scale: Adult ar8 MDM: 05:33 Medical Screening Exam initiated ms3 06:15 ED course: Discussed case with Dr Dumont, patients Cardiothoracic surgeon, and he would ms3 like patient transferred to [facility] ER. Will transfer to [facility] for continuity of care secondary to patient having CABG on 12/20/2024.. 06:18 Data reviewed: vital signs, nurses notes, lab test result(s), EKG, radiologic studies, ms3 and as a result, I will will transfer patient for continuity of care. Consideration of Admission/Observation Will transfer patient. Management of patient was discussed with the following: Corner Block Cutter: Dr Dumont. Independent interpretation of the following test(s) in the Emergency Department EKG: See my EKG interpretation above X-Ray: My interpretation is CXR image reviewed by me shows elevated right hemidiaphragm. Counseling: I had a detailed discussion with the patient and/or guardian regarding the historical points, exam findings, and any diagnostic results supporting the discharge/admit diagnosis, lab results, the need to transfer to another facility, [facility] does not immediately have the required specialist, Continuity of care. 01/14 05:34 Order name: Basic Metabolic Panel; Complete Time: 06:47 ms3 01/14 05:34 Order name: CBC with Diff ms3 01/14 05:34 Order name: LFT's; Complete Time: 06:47 ms3 01/14 05:34 Order name: Magnesium; Complete Time: 06:47 ms3 01/14 05:34 Order name: PT-INR; Complete Time: 06:20 ms3 01/14 05:34 Order name: Troponin HS; Complete Time: 06:47 ms3 01/14 05:34 Order name: XRAY Chest (1 view) ms3 01/14 05:34 Order name: Cardiac monitoring; Complete Time: 05:51 ms3 01/14 05:34 Order name: EKG - Nurse/Tech; Complete Time: 05:51 ms3 01/14 05:34 Order name: IV Saline Lock; Complete Time: 05:52 ms3 01/14 05:34 Order name: Labs collected and sent; Complete Time: 05:52 ms3 01/14 05:34 Order name: O2 Per Protocol; Complete Time: 05:52 ms3 01/14 05:34 Order name: O2 Sat Monitoring; Complete Time: 05:52 ms3 EC:05 Rate is 85 beats/min. Rhythm is regular. QRS interval is prolonged. Clinical ms3 impression: Paced. Interpreted by me. Reviewed by me. Administered Medications: 06:06 Drug: NS 0.9% IV 1000 ml IV at 1000 ml once; to be given as a bolus over 60 minutes cp4 Route: IV; Rate: 1000 ml; Site: left upper arm; 07:05 Follow up: Response: No adverse reaction; IV Status: Completed infusion; IV Intake: ar8 1000ml 07:39 Drug: NS 0.9% IV 1000 ml IV at 1 bolus Per protocol; to be given as a bolus over 60 ap3 minutes Route: IV; Rate: 1 bolus; Site: left upper arm; 08:26 Follow up: IV Status: Completed infusion; IV Intake: 1000ml ap3 Disposition Summary: 01/14/25 06:18 Transfer Ordered Notes: Transfer Location: [facility] System ms3 Reason: Higher level of care ms3 Condition: Serious ms3 Problem: new ms3 Symptoms: are unchanged ms3 Accepting Physician: Dr Dumont(01/14/25 08:35) ap3 Diagnosis - Syncope ms3 - Hypotension ms3 - Anemia, unspecified ms3 - acute kidney injury ms3 Forms: - Medication Reconciliation Form ms3 - SBAR form ms3 Critical care time excluding procedures: 06:17 Critical care time: Bedside Care: 40 minutes, Consultation: 5 minutes, Family ms3 Intervention: 5 minutes. Total time: 50 minutes Signatures: Dispatcher [employer] EDMS Kerry Mcmahon, RN RN ap3 All Perez DO DO ms3 Leslie Lazo cp4 Marta Hernandez RN RN cc6 Stanley Silverio RN ar8 Corrections: (The following items were deleted from the chart) 05:34 05:34 Chest Single View+[email or web address] ordered. EDMS EDMS 05:59 05:59 PMHx: Hypothyroidism; cc6 cc6 05:59 05:59 PMHx: Hypertension; cc6 cc6 05:59 05:59 PMHx: colon cancer; cc6 cc6 05:59 05:59 PMHx: shingles; cc6 cc6 05:59 05:59 PMHx: Parkinson's disease; cc6 cc6 05:59 05:59 PMHx: Anxiety; cc6 cc6 05:59 05:59 PSHx: eye sx; cc6 cc6 05:59 05:59 PSHx: right hip placement; cc6 cc6 05:59 05:59 PSHx: Tonsillectomy; cc6 cc6 05:59 05:59 PSHx: Total abdominal hysterectomy; cc6 cc6 05:59 05:59 PSHx: Cholecystectomy; cc6 cc6 05:59 05:59 PSHx: Appendectomy; cc6 cc6 05:59 05:59 PSHx: colon resection; cc6 cc6 05:59 05:59 PSHx: back surgery x 2; cc6 cc6 05:59 05:59 PSHx: Right knee replacement; cc6 cc6 05:59 05:59 PSHx: Pacemaker September 09, 2022; cc6 cc6 06:47 06:18 Dr Porat ms3 ms3 08:35 06:47 Dr Porat ms3 ap3
[2025-01-14 06:35] LABS: AST/SGOT 27 U/L (15-37); Albumin 3.0 g/dL (3.4-5.0); Albumin/Globulin Ratio 0.8 (1.1-1.8); Alkaline Phosphatase 134 U/L (45-117); Anion Gap 13.6 mEq/L (5.0-15.0); BUN Blood Urea Nitrogen 27 mg/dL (7-18); Globulin 3.8 g/dL (2.3-3.5); Glucose Level 116 mg/dL (74-106); Magnesium 2.2 mg/dL (1.6-2.4); Potassium 3.6 mEq/L (3.5-5.1); Troponin High Sensitivity 45.1 pg/mL (<58.9)
[2025-01-14 06:46] LABS: ALT/SGPT < 14 U/L (13-56); Bilirubin Indirect, Calculated 0.2 mg/dL (0.2-0.8)
[2025-01-14] MEDS ORDERED: NA CHLORIDE 0.9% 1,000 ML ONE (07:25)
--- NOTE | 2025-01-14 08:29 | RAD REPORT ---
Procedure: Chest Single View HISTORY: Syncope COMPARISON: 2021 FINDINGS: The lungs appear clear of acute infiltrate. No significant pleural effusion noted. The heart is mildly enlarged. Pacer/AICD in place Heart is mildly to moderately enlarged. IMPRESSION: No acute abnormality is displayed.
[2025-01-14 09:55] LABS: Blood Morphology Comment NOTED (NOT SEEN); White Blood Cell Scan OK (OK)
[2025-01-14 09:56] LABS: Anisocytosis 3+; Macrocytosis 1+; Microcytosis 2+
[2025-01-14 12:59] VITALS: TEMP 98.5
[2025-01-14 13:13] VITALS: BP 90/56; O2SAT 98
== END 2025-01-14 08:35 | disposition short-term general hospital (02) ==
LOC: ER 05:29
DX: R55 Syncope and collapse (principal); I95.9 Hypotension, unspecified; D64.9 Anemia, unspecified; N17.9 Acute kidney failure, unspecified; I10 Essential (primary) hypertension; Z95.1 Presence of aortocoronary bypass graft
CPT/HCPCS: 96361; 93005; 85025; 80048; 36415; 83735; 85610; 80076; 84484; 71045; 96360; 99285; J7030